=== PATIENT | female | born 1950 | race Caucasian/White ===

== ENCOUNTER 2019-06-13 14:47 | Outpatient (REF) | payer MEDICARE, MEDICAID, SELFPAY ==
[2019-06-13 15:48] LABS: TSH (W/Ref FT4) 0.17 uIU/mL (0.36-3.74)
[2019-06-13 16:11] LABS: FREE T4 1.41 ng/dL (0.76-1.46)
== END 2019-06-13 15:07 ==
LOC: LBN 14:47
PROVIDERS: Visit Provider Family Medicine
DX: J44.9 Chronic obstructive pulmonary disease, unspecified (principal); R63.5 Abnormal weight gain
CPT/HCPCS: 84439; 84443

== ENCOUNTER 2019-06-21 07:11 | Outpatient (CLI) | payer MEDICARE, MEDICAID, SELFPAY ==
--- NOTE | 2019-06-21 11:01 | DI.RAD_ITS ---
SYMPTOMS/DIAGNOSIS: SEVERE BACK AND HIP PAIN BILATERAL HIPS AND PELVIS: There are mild degenerative changes of the hips bilaterally with joint space narrowing and periarticular spurring. The findings are most marked on the right side. No acute fracture or dislocation is seen. The sacroiliac joints and symphysis pubis and intact. The soft tissues are unremarkable. IMPRESSION: Mild degenerative changes of the hips bilaterally. LUMBAR SPINE: AP, lateral and bilateral oblique views. There are no priors for comparison. There are compression deformities of T 11 and T 12 with loss of approximately 30% of the height of each of the vertebral bodies. These are indeterminate in acuity. There is normal alignment of the lumbar spine. No spondylolysis or spondylolisthesis is appreciated. There is mild narrowing of the disc spaces at L 3 - 4 and L 4 - 5. There are endplate osteophytes from L 2 - 3 through L 4 - 5. Degenerative changes of the facets are seen particularly at L 4 - 5 and L 5 - S 1. No acute fracture or subluxation in the lumbar spine is noted. IMPRESSION: 1. Mild to moderate degenerative changes in the lumbar spine. 2. Compression deformities of T 11 and T 12 which are indeterminate in age. Follow up as clinically appropriate.
== END 2019-06-21 07:31 ==
PROVIDERS: Visit Provider Nurse Practitioner Gerontology
DX: M54.5 Low back pain (principal); M25.551 Pain in right hip; M25.552 Pain in left hip; M16.0 Bilateral primary osteoarthritis of hip; M51.36 Other intervertebral disc degeneration, lumbar region; M47.816 Spondylosis without myelopathy or radiculopathy, lumbar region
CPT/HCPCS: 73521; 72110; 84443

== ENCOUNTER 2019-07-25 18:09 | Outpatient (REF) | payer MEDICARE, MEDICAID, SELFPAY ==
[2019-07-25 21:41] LABS: TSH 0.28 uIU/mL (0.36-3.74)
== END 2019-07-25 18:29 ==
LOC: NCHCN 18:09
PROVIDERS: Visit Provider Nurse Practitioner Family
DX: E03.9 Hypothyroidism, unspecified (principal)
CPT/HCPCS: 84443

== ENCOUNTER 2021-04-28 10:43 | Outpatient (REF) | payer MEDICARE, MEDICAID, SELFPAY ==
[2021-04-28 12:32] LABS: C Diff PCR Negative (Negative)
== END 2021-04-28 10:44 | disposition home or self-care (01) ==
LOC: LBN 10:43
PROVIDERS: Visit Provider Family Medicine
DX: R19.7 Diarrhea, unspecified (principal); R19.5 Other fecal abnormalities
CPT/HCPCS: 87493

== ENCOUNTER 2021-05-15 12:54 | Outpatient (REF) | payer MEDICARE, MEDICAID, SELFPAY ==
[2021-05-15 14:18] LABS: Anion Gap 8.2 mmol/L (3-11); BUN 10 mg/dL (7-18); C-Reactive Protein 0.43 mg/dL (0.0-0.3); CO2 27.8 mmol/L (21.0-32.0); CREATININE 0.7 mg/dL (0.55-1.02); Calcium 8.9 mg/dL (8.5-10.1); Chloride 107 mmol/L (98-107); Glucose 89 mg/dL (74-106); Potassium 4.1 mmol/L (3.5-5.1); Sodium 143 mmol/L (136-145); TSH (W/Ref FT4) 0.19 uIU/mL (0.36-3.74)
[2021-05-15 14:35] LABS: FREE T4 1.47 ng/dL (0.76-1.46)
== END 2021-05-15 12:55 | disposition home or self-care (01) ==
LOC: LBN 12:54
PROVIDERS: Visit Provider Family Medicine
DX: R19.7 Diarrhea, unspecified (principal)
CPT/HCPCS: 80048; 84439; 84443; 86140

== ENCOUNTER 2021-06-24 17:44 | Outpatient (REF) | payer MEDICARE, MEDICAID, SELFPAY ==
[2021-06-24 19:18] LABS: Bilirubin Negative (Negative); Blood Small (Negative); Clarity Cloudy (Clear); Glucose Negative (Negative); Ketones Negative (Negative); Leukocyte Esterase Large (Negative); Nitrite Negative (Negative); Specific Gravity 1.025 (1.005-1.025); Urobilinogen 0.2 EU/dL (Up TO 0.2); pH 5.5 (5-8)
[2021-06-24 19:32] LABS: WBC >50 HPF (0-5)
[2021-06-24 19:33] LABS: Bacteria Moderate HPF (Negative); C & S Indicated? C&S Done As Ordered; Crystals Negative HPF (Negative); Epithelial Cells Few HPF (Negative); Mucus Negative (Negative); Other Cells Few Transitional (Negative)
== END 2021-06-24 17:45 | disposition home or self-care (01) ==
LOC: LBN 17:44
PROVIDERS: Visit Provider Family Medicine
DX: R35.0 Frequency of micturition (principal)
CPT/HCPCS: 87077; 81003; 81015; 87086; 87186

== ENCOUNTER 2021-07-01 13:43 | Outpatient (REF) | payer MEDICARE, MEDICAID, SELFPAY ==
[2021-07-01 20:02] LABS: FREE T4 0.88 ng/dL (0.76-1.46)
== END 2021-07-01 13:44 | disposition home or self-care (01) ==
LOC: LBN 13:43
PROVIDERS: Visit Provider Family Medicine
DX: E03.9 Hypothyroidism, unspecified (principal)
CPT/HCPCS: 84439; 84443

== ENCOUNTER 2021-10-18 21:16 | Outpatient (REF) | payer MEDICARE, MEDICAID, SELFPAY ==
[2021-10-18 22:02] LABS: Abs Immature Grans 0.02 10^3/uL (0.0-0.06); Absolute Basophil Count 0.03 10^3/uL (0.0-0.2); Absolute Eosinophil Count 0.04 10^3/uL (0.0-0.7); Absolute Lymphocyte Count 1.01 10^3/uL (1.2-3.4); Absolute Monocyte Count 0.35 10^3/uL (0.1-0.8); Absolute Neutrophil Count 5.23 10^3/uL (1.2-6.7); Basophils % 0.4; Eosinophils % 0.6; HCT 37.5 % (36.0-46.0); HGB 11.8 g/dL (11.2-15.7); Immature Grans % 0.3; Lymphocytes % 15.1; MCH 31.7 pg (27.0-33.0); MCHC 31.5 % (32.0-36.0); MCV 100.8 fL (80-95); MPV 9.8 fL (8.0-11.0); Monocytes % 5.2; Neutrophils % 78.4; Nucleated RBC 0 %; Platelet Count 247 10^3/uL (130-400); RBC 3.72 10^6/uL (3.93-5.22); RDW 13.2 % (11.7-14.6); RDW-SD 49.6 fL; WBC 6.68 10^3/uL (4.4-10.8)
[2021-10-18 22:09] LABS: BUN 10 mg/dL (7-18); CREATININE 0.7 mg/dL (0.55-1.02); Calcium 8.7 mg/dL (8.5-10.1); Chloride 103 mmol/L (98-107); Glucose 114 mg/dL (74-106); Potassium 3.5 mmol/L (3.5-5.1); Sodium 138 mmol/L (136-145)
== END 2021-10-18 21:17 | disposition home or self-care (01) ==
LOC: LBN 21:16
PROVIDERS: Visit Provider Nurse Practitioner Family
DX: R50.9 Fever, unspecified (principal)
CPT/HCPCS: 80048; 85025

== ENCOUNTER 2021-10-19 05:58 | Outpatient (REF) | payer MEDICARE, MEDICAID, SELFPAY ==
[2021-10-19 06:48] LABS: Bilirubin Negative (Negative); Blood Negative (Negative); Clarity Clear (Clear); Glucose Negative (Negative); Ketones 40 mg/dL (Negative); Leukocyte Esterase Negative (Negative); Nitrite Negative (Negative); Specific Gravity 1.025 (1.005-1.025); Urobilinogen 0.2 EU/dL (Up TO 0.2); pH 6.5 (5-8)
== END 2021-10-19 05:59 | disposition home or self-care (01) ==
LOC: LBN 05:58
PROVIDERS: Visit Provider Family Medicine
DX: R50.9 Fever, unspecified (principal)
CPT/HCPCS: 81003; 87086

== ENCOUNTER 2021-11-17 16:04 | Outpatient (REF) | payer MEDICARE, MEDICAID, SELFPAY ==
[2021-11-17 16:33] LABS: Bilirubin Negative (Negative); Blood Small (Negative); Clarity Sl Cloudy (Clear); Glucose Negative (Negative); Ketones Negative (Negative); Leukocyte Esterase Moderate (Negative); Nitrite Negative (Negative); Urobilinogen 0.2 EU/dL (Up TO 0.2); pH 5.5 (5-8)
[2021-11-17 16:40] LABS: Bacteria Few HPF (Negative); Crystals Negative HPF (Negative); Epithelial Cells Few HPF (Negative); WBC >50 HPF (0-5)
[2021-11-17 16:41] LABS: C & S Indicated? Yes; Casts Negative LPF (Negative); Mucus Trace (Negative)
== END 2021-11-17 16:05 | disposition home or self-care (01) ==
LOC: LBN 16:04
PROVIDERS: Visit Provider Nurse Practitioner Family
DX: R30.0 Dysuria (principal); R35.0 Frequency of micturition
CPT/HCPCS: 87077; 81003; 81015; 87086; 87186

== ENCOUNTER 2021-11-29 14:37 | Outpatient (REF) | payer MEDICARE, MEDICAID, SELFPAY ==
[2021-11-29 15:46] LABS: Abs Immature Grans 0.02 10^3/uL (0.0-0.06); Absolute Basophil Count 0.04 10^3/uL (0.0-0.2); Absolute Lymphocyte Count 1.62 10^3/uL (1.2-3.4); Absolute Monocyte Count 0.32 10^3/uL (0.1-0.8); Absolute Neutrophil Count 4.74 10^3/uL (1.2-6.7); Basophils % 0.6; Eosinophils % 1.5; HCT 39.3 % (36.0-46.0); HGB 12.4 g/dL (11.2-15.7); Immature Grans % 0.3; Lymphocytes % 23.7; MCH 32.3 pg (27.0-33.0); MCHC 31.6 % (32.0-36.0); MCV 102.3 fL (80-95); MPV 9.9 fL (8.0-11.0); Monocytes % 4.7; Neutrophils % 69.2; Nucleated RBC 0 %; Platelet Count 308 10^3/uL (130-400); RBC 3.84 10^6/uL (3.93-5.22); RDW 13.1 % (11.7-14.6); RDW-SD 49.8 fL; WBC 6.84 10^3/uL (4.4-10.8)
[2021-11-29 15:51] LABS: Anion Gap 10.9 mmol/L (3-11); BUN 16 mg/dL (7-18); CO2 25.1 mmol/L (21.0-32.0); CREATININE 0.9 mg/dL (0.55-1.02); Calcium 8.9 mg/dL (8.5-10.1); Chloride 106 mmol/L (98-107); Glucose 139 mg/dL (74-106); Sodium 142 mmol/L (136-145); Uric Acid 3.7 mg/dL (2.6-6.0)
== END 2021-11-29 14:38 | disposition home or self-care (01) ==
LOC: LBN 14:37
PROVIDERS: Visit Provider Family Medicine
DX: M10.9 Gout, unspecified (principal); R68.89 Other general symptoms and signs; Z13.228 Encounter for screening for other metabolic disorders
CPT/HCPCS: 80048; 84550; 85025

== ENCOUNTER 2021-12-24 14:58 | Outpatient (CLI) | payer MEDICARE, MEDICAID, SELFPAY ==
--- NOTE | 2021-12-24 12:35 | DI.CT_ITS ---
Exam(s) CT HEAD WO EXAM: CT HEAD WO CLINICAL HISTORY: FELL, ON ELIQUIS, HIT HEAD, ? BLEED TECHNIQUE: COMPARISON: No exams were available for comparison FINDINGS: Noncontrast cranial CT was performed. Note is made of mild generalized cerebral atrophy. There is n o evidence of acute intracranial hemorrhage. The orbital and temporal bone structures appear intact. Visualized mastoid air cells and paranasal sinuses are clear. There is question of decreased attenuation of portions of the medulla, there is significant artifact in this area from surrounding bony structures but possibility of a hypoattenuating lesion cannot be e xcluded. Correlation with brain MRI recommended to rule out a mass lesion or infarct. IMPRESSION: No acute intracranial hemorrhage. Question medullary abnormality versus artifact, mass not excluded, correlation with brain MRI recomme nded. RADIATION DOSE DELIVERED: 759.27mGy.cm Total DLP !Error CTDIvol RADIATION OPTIMIZATION: All CT scans at this facility use at least one of these dose optimization te chniques: automated exposure control; mA and/or kV adjustment per patient size (includes targeted exa ms where dose is matched to clinical indication); or iterative reconstruction.
== END 2021-12-24 15:18 ==
PROVIDERS: Visit Provider Family Medicine
DX: Z79.899 Other long term (current) drug therapy (principal); S09.8XXA Other specified injuries of head, initial encounter; W19.XXXA Unspecified fall, initial encounter; R93.0 Abnormal findings on diagnostic imaging of skull and head, not elsewhere classified
CPT/HCPCS: 70450

== ENCOUNTER 2022-03-03 22:37 | Outpatient (REF) | payer MEDICARE, MEDICAID, SELFPAY ==
[2022-03-03 15:33] LABS: CREATININE 0.9 mg/dL (0.55-1.02)
== END 2022-03-03 22:38 | disposition home or self-care (01) ==
LOC: LBN 22:37
PROVIDERS: Visit Provider Family Medicine
DX: R94.4 Abnormal results of kidney function studies (principal)
CPT/HCPCS: 82565

== ENCOUNTER 2022-03-05 00:13 | Outpatient (CLI) | payer MEDICARE, MEDICAID, SELFPAY ==
--- NOTE | 2022-03-05 | DI.MRI_ITS ---
Exam(s) MR BRAIN WO/W EXAM: MR BRAIN WO/W CLINICAL HISTORY: ? MEDULLA MASS SEEN ON CT TECHNIQUE: Multiplanar multisequence MRI of the brain was performed. Additional post contrast imagi ng was also obtained including T1 weighted axial and coronal images as well as T1 MP rage images, mul tiplanar. COMPARISON: No exams were available for comparison FINDINGS: There is mild generalized cerebral atrophy. There are scattered areas of abnormal signal in periventricular white matter consistent with microvas cular ischemic changes sparing the corpus callosum. The orbital and temporal bone structures appear intact as does the pituitary. Diffusion weighted imaging shows no evidence of infarction. Susceptibility weighted imaging shows no evidence of intracranial hemorrhage. There is normal flow void in the sam[place] of [place] vasculature. There is no evidence of an intracranial mass lesion or enhancing lesion. Specifically, there is no e vidence of a lesion of the medulla. IMPRESSION: Normal brain MRI including post contrast imaging. DATA REPOSITORY:
[2022-03-05] MEDS: Normal Saline Flush 10 ML SYR IVP (12:47)
[2022-03-05] MEDS: Gadoterate meglumine 20 ML VIAL 15 ML IVP (12:48)
== END 2022-03-05 00:33 ==
PROVIDERS: Visit Provider Nurse Practitioner Family
DX: G31.89 Other specified degenerative diseases of nervous system (principal); I67.82 Cerebral ischemia; R94.02 Abnormal brain scan
CPT/HCPCS: 70553

== ENCOUNTER → 2022-04-22 00:53 | Outpatient (CLI) | payer MEDICARE, MEDICAID, SELFPAY ==
--- NOTE | 2022-04-22 14:15 | DI.RAD_ITS ---
Exam(s) XR KNEE RT 3V AP,LAT,SHANTI EXAM: XR KNEE RT 3V AP,LAT,SHANTI CLINICAL HISTORY: DJD, RT KNEE TECHNIQUE: COMPARISON: No exams were available for comparison FINDINGS: Four views were obtained. There is moderate narrowing of the cartilaginous joint space of the latera l tibiofemoral cartilaginous joint space. There is probable narrowing of the patellofemoral cartilag inous joint space is well. There is significant deformity of the articular surfaces of all 3 joints of the knee with very prominent marginal osteophyte formation also noted. IMPRESSION: Tricompartment degenerative changes as described above. RADIATION DOSE DELIVERED: Total DLP
== END ==
PROVIDERS: Visit Provider Family Medicine
DX: M25.561 Pain in right knee (principal); M17.11 Unilateral primary osteoarthritis, right knee
CPT/HCPCS: 73562

== ENCOUNTER 2022-06-26 01:58 | Outpatient (REF) | payer MEDICARE, MEDICAID, SELFPAY ==
[2022-06-26 02:31] LABS: Bilirubin Negative (Negative); Blood Negative (Negative); Clarity Clear (Clear); Glucose Negative (Negative); Ketones Negative (Negative); Leukocyte Esterase Negative (Negative); Nitrite Negative (Negative); Urobilinogen 0.2 EU/dL (Up TO 0.2)
== END 2022-06-26 01:59 | disposition home or self-care (01) ==
LOC: LBN 01:58
PROVIDERS: Visit Provider Nurse Practitioner Family
DX: M62.81 Muscle weakness (generalized) (principal); Z87.448 Personal history of other diseases of urinary system
CPT/HCPCS: 81003; 87086

== ENCOUNTER 2022-10-05 13:51 | Outpatient (REF) | payer MEDICARE, MEDICAID, SELFPAY ==
[2022-10-05 14:13] LABS: Abs Immature Grans 0.03 10^3/uL (0.0-0.06); Absolute Basophil Count 0.07 10^3/uL (0.0-0.2); Absolute Eosinophil Count 0.11 10^3/uL (0.0-0.7); Absolute Lymphocyte Count 1.22 10^3/uL (1.2-3.4); Absolute Monocyte Count 0.55 10^3/uL (0.1-0.8); Absolute Neutrophil Count 8.03 10^3/uL (1.2-6.7); Basophils % 0.7; Eosinophils % 1.1; HGB 10.2 g/dL (11.2-15.7); Immature Grans % 0.3; Lymphocytes % 12.2; MCH 27.8 pg (27.0-33.0); MCV 93 fL (80-95); MPV 9.7 fL (8.0-11.0); Monocytes % 5.5; Neutrophils % 80.2; Platelet Count 532 10^3/uL (130-400); RBC 3.67 10^6/uL (3.93-5.22); RDW-SD 50.9 fL; WBC 10.01 10^3/uL (4.4-10.8)
[2022-10-05 14:25] LABS: ALT 89 U/L (14-59); AST 60 U/L (15-37); Albumin 3.2 g/dL (3.4-5.0); Alkaline Phosphatase 488 U/L (46-116); Anion Gap 8.1 mmol/L (3-11); BUN 10 mg/dL (7-18); C-Reactive Protein 3.07 mg/dL (0.0-0.3); CO2 25.9 mmol/L (21.0-32.0); CREATININE 0.8 mg/dL (0.55-1.02); Calcium 8.6 mg/dL (8.5-10.1); Chloride 103 mmol/L (98-107); Estimated GFR 77.75 (mL/min/1.73m2); Glucose 121 mg/dL (74-106); Potassium 4.2 mmol/L (3.5-5.1); Sodium 137 mmol/L (136-145); Total Protein 7.7 g/dL (6.4-8.2)
== END 2022-10-05 13:52 | disposition home or self-care (01) ==
LOC: LBN 13:51
PROVIDERS: Visit Provider Family Medicine
DX: J44.9 Chronic obstructive pulmonary disease, unspecified (principal); E03.9 Hypothyroidism, unspecified; R94.4 Abnormal results of kidney function studies; R91.8 Other nonspecific abnormal finding of lung field; R79.89 Other specified abnormal findings of blood chemistry
CPT/HCPCS: 80053; 85025; 86140

== ENCOUNTER → 2022-10-06 12:28 | Outpatient (CLI) | payer MEDICARE, MEDICAID, SELFPAY ==
--- NOTE | 2022-10-06 | DI.RAD_ITS ---
Exam(s) XR CHEST 2V PA LATERAL EXAM: XR CHEST 2V PA LATERAL CLINICAL HISTORY: CONGESTION, RESPIRATORY VIRUS NOT IMPROVING TECHNIQUE: 2D digital imaging was performed of the chest. Two images were obtained. PA and lateral views were obtained. COMPARISON: No exams were available for comparison FINDINGS: MEDIASTINUM: Normal. HEART: Normal. PULMONARY VASCULATURE: Normal. LUNGS: There is a left lower lobe infiltrate. PLEURAL SPACE: No pleural effusion or pneumothorax. BONE:Within normal limits for the patient's age. There are chronic thoracic and upper lumbar babatunde carissa fracture deformities. OTHER FINDINGS:There is elevation of the left hemidiaphragm. IMPRESSION: Left basilar infiltrate suspicious for pneumonia. DATA REPOSITORY: RADIATION DOSE DELIVERED:
== END ==
PROVIDERS: Visit Provider Family Medicine
DX: R91.8 Other nonspecific abnormal finding of lung field (principal)
CPT/HCPCS: 71046

== ENCOUNTER 2022-12-01 16:07 | Outpatient (REF) | payer MEDICARE, MEDICAID, SELFPAY | END 2022-12-01 16:08 | disposition home or self-care (01) | LOC: LBN 16:07 | PROVIDERS: Visit Provider Family Medicine | DX: R82.998 Other abnormal findings in urine (principal); Z87.448 Personal history of other diseases of urinary system | CPT/HCPCS: 87077; 87086; 87186 ==

== ENCOUNTER 2022-12-04 15:15 | Outpatient (REF) | payer MEDICARE, MEDICAID, SELFPAY ==
[2022-12-04 16:27] LABS: Bilirubin Negative (Negative); Blood Negative (Negative); Clarity Sl Cloudy (Clear); Glucose Negative (Negative); Ketones Negative (Negative); Leukocyte Esterase Trace (Negative); Nitrite Negative (Negative); Urobilinogen 0.2 EU/dL (Up TO 0.2)
[2022-12-04 16:33] LABS: Bacteria Many HPF (Negative); C & S Indicated? C&S Done As Ordered; Casts Negative LPF (Negative); Crystals Negative HPF (Negative); Epithelial Cells Few HPF (Negative); Mucus Negative (Negative); RBC 0-2 HPF (0-2)
== END 2022-12-04 15:16 | disposition home or self-care (01) ==
LOC: LBN 15:15
PROVIDERS: Visit Provider Family Medicine
DX: I26.99 Other pulmonary embolism without acute cor pulmonale (principal)
CPT/HCPCS: 87077; 81003; 81015; 87086; 87186

== ENCOUNTER 2023-01-18 21:31 | Outpatient (REF) | payer MEDICARE, MEDICAID, SELFPAY ==
[2023-01-18 21:50] LABS: Abs Immature Grans 0.08 10^3/uL (0.0-0.06); Absolute Basophil Count 0.06 10^3/uL (0.0-0.2); Absolute Eosinophil Count 0.14 10^3/uL (0.0-0.7); Absolute Lymphocyte Count 1.65 10^3/uL (1.2-3.4); Basophils % 0.5; Eosinophils % 1.2; HCT 31.8 % (36.0-46.0); HGB 9.6 g/dL (11.2-15.7); Immature Grans % 0.7; Lymphocytes % 13.8; MCH 27.1 pg (27.0-33.0); MCHC 30.2 % (32.0-36.0); MCV 90 fL (80-95); MPV 10.4 fL (8.0-11.0); Neutrophils % 76.8; Platelet Count 539 10^3/uL (130-400); RBC 3.54 10^6/uL (3.93-5.22); RDW-SD 63.3 fL; WBC 11.94 10^3/uL (4.4-10.8)
[2023-01-18 21:51] LABS: Absolute Monocyte Count 0.84 10^3/uL (0.1-0.8); Absolute Neutrophil Count 9.17 10^3/uL (1.2-6.7)
[2023-01-18 22:13] LABS: ALT 142 U/L (14-59); AST 145 U/L (15-37); Albumin 2.9 g/dL (3.4-5.0); Alkaline Phosphatase 857 U/L (46-116); Anion Gap 9.9 mmol/L (3-11); BUN 13 mg/dL (7-18); Bilirubin, Total 3.9 mg/dL (0.2-1.0); CO2 24.1 mmol/L (21.0-32.0); CREATININE 0.9 mg/dL (0.55-1.02); Calcium 8.7 mg/dL (8.5-10.1); Chloride 107 mmol/L (98-107); Estimated GFR 67.08 (mL/min/1.73m2); Glucose 104 mg/dL (74-106); Potassium 4.1 mmol/L (3.5-5.1); Sodium 141 mmol/L (136-145); Total Protein 7.5 g/dL (6.4-8.2)
[2023-01-20 11:29] LABS: Hepatitis C Ab w Rflx HCV PCR Negative (Negative)
== END 2023-01-18 21:32 | disposition home or self-care (01) ==
LOC: LBN 21:31
PROVIDERS: Visit Provider Family Medicine
DX: I26.99 Other pulmonary embolism without acute cor pulmonale (principal); Z11.59 Encounter for screening for other viral diseases; R10.9 Unspecified abdominal pain; R17 Unspecified jaundice; R74.01 Elevation of levels of liver transaminase levels
CPT/HCPCS: 80053; 86803; 85025

== ENCOUNTER 2023-02-05 13:41 | Outpatient (REF) | payer MEDICARE, MEDICAID, SELFPAY ==
[2023-02-05 10:36] LABS: Abs Immature Grans 0.01 10^3/uL (0.0-0.06); Absolute Basophil Count 0.05 10^3/uL (0.0-0.2); Absolute Eosinophil Count 0.18 10^3/uL (0.0-0.7); Absolute Lymphocyte Count 1.86 10^3/uL (1.2-3.4); Absolute Monocyte Count 0.35 10^3/uL (0.1-0.8); Absolute Neutrophil Count 3.19 10^3/uL (1.2-6.7); Basophils % 0.9; Eosinophils % 3.2; HCT 31.9 % (36.0-46.0); HGB 9.7 g/dL (11.2-15.7); Immature Grans % 0.2; MCH 27.8 pg (27.0-33.0); MCHC 30.4 % (32.0-36.0); MCV 91 fL (80-95); Monocytes % 6.2; Neutrophils % 56.5; Platelet Count 263 10^3/uL (130-400); RBC 3.49 10^6/uL (3.93-5.22); RDW 18.1 % (11.7-14.6); RDW-SD 60.5 fL; WBC 5.64 10^3/uL (4.4-10.8)
[2023-02-05 11:03] LABS: ALT 62 U/L (14-59); AST 67 U/L (15-37); Alkaline Phosphatase 463 U/L (46-116); Anion Gap 7.5 mmol/L (3-11); BUN 18 mg/dL (7-18); Bilirubin, Total 0.7 mg/dL (0.2-1.0); CO2 28.5 mmol/L (21.0-32.0); CREATININE 0.8 mg/dL (0.55-1.02); Chloride 108 mmol/L (98-107); Estimated GFR 77.27 (mL/min/1.73m2); Glucose 130 mg/dL (74-106); Potassium 3.9 mmol/L (3.5-5.1); Sodium 144 mmol/L (136-145); TSH 22.01 uIU/mL (0.36-3.74); Total Protein 7.5 g/dL (6.4-8.2)
[2023-02-05 11:19] LABS: T4 6.5 ug/dL (4.7-13.3)
[2023-02-05 18:56] LABS: T3, Total 101 ng/dL (97-169)
== END 2023-02-05 13:42 | disposition home or self-care (01) ==
LOC: LBN 13:41
PROVIDERS: Visit Provider Physician Assistant
DX: E03.9 Hypothyroidism, unspecified (principal); J44.9 Chronic obstructive pulmonary disease, unspecified
CPT/HCPCS: 80053; 84436; 84439; 84443; 84480; 85025

== ENCOUNTER 2023-02-18 01:04 | Outpatient (CLI) | payer MEDICARE, MEDICAID, SELFPAY ==
--- NOTE | 2023-02-18 | DI.CT_ITS ---
Exam(s) CT ABDOMEN PELVIS W EXAM: CT ABDOMEN PELVIS W CLINICAL HISTORY: HYPERBILIRUBINEMIA TECHNIQUE: Imaging Protocol: Axial computed tomography images with coronal and sagittal reformatted images were created and reviewed CONTRAST MATERIAL: Intravenous: Omnipaque 350 Contrast volume:100 mL Oral: yes / no COMPARISON: CR XR lumbar spine complete from 06/21/2019 FINDINGS: ABDOMEN: Lung Bases: There is dependent atelectasis. Liver: Normal density. No measurable mass. Portal, Superior Mesenteric, and Splenic Veins: Unremarkable. Gallbladder and Biliary Tract: The common duct measures 1.3 cm. The gallbladder appears contracted. There is mild intrahepatic bile duct dilatation. Pancreas: Normal density, no abnormal calcifications or inflammatory process. Spleen: Normal. Adrenals: No masses seen. Kidneys: Normal size, contour and axis. There is a 1 mm nonobstructing stone in the superior pole of the right kidney. There are few tiny hypodense lesions in the cortex of the left kidney. They are t oo small for further characterization but likely reflect small cysts. No follow-up is recommended. No masses seen. Abdominal Aorta: Abdominal portion non-dilated. Mild atherosclerosis. Bowel: There is diverticulosis seen in the colon, but no evidence of acute diverticulitis. There is no evidence of bowel obstruction or bowel wall thickening. There is no evidence of appendicitis. Peritoneal Cavity: No ascites, collection or mesenteric inflammatory response. No free air. Lymph Nodes: Within normal limits. Bones: Within normal limits for the patient's age. There are stable compression deformities involvin g T11 and T12. Soft Tissues: There is a small fat containing umbilical hernia. PELVIS: Bladder: Symmetric distention, no gross wall thickening. Reproductive Organs: Unremarkable as visualized. Lymph Nodes: Within normal limits. Bones: Within normal limits for the patient's age. IMPRESSION: 1. Extrahepatic and mild intrahepatic biliary ductal dilatation. There is a contracted gallbladder. Further evaluation with an MRCP is recommended in this patient. An obstructing mass or non calcifie d stone should be considered. 2. Right nephrolithiasis. No hydronephrosis. 3. Colonic diverticulosis, but no evidence of acute diverticulitis. 4. Old T11 and T12 compression fracture deformities. RADIATION DOSE DELIVERED: 1,263.94mGy.cm Total DLP DATA REPOSITORY: All CT scans at this facility are submitted to the National Radiology Data Registry (NRDR) Dose Index Registry (DIR) with the [employer] (A[employer]). RADIATION OPTIMIZATION: All CT scans at this facility use at least one of these dose optimization te chniques: automated exposure control; mA and/or kV adjustment per patient size (includes targeted exa ms where dose is matched to clinical indication); or iterative reconstruction.
[2023-02-18] MEDS: Barium Sulfate 2% W/V-Berry Smoothie 450 ML BTL PO (11:57)
[2023-02-18] MEDS: Omnipaque 350 MG/ML 500 ML BTL-Imaging package 100 ML IJ (14:28)
[2023-02-18] MEDS: Normal Saline - Diluent 50 ML VIAL IJ (14:29)
== END 2023-02-18 01:24 ==
LOC: DI 01:04
PROVIDERS: Visit Provider Physician Assistant
DX: K21.9 Gastro-esophageal reflux disease without esophagitis (principal); E03.9 Hypothyroidism, unspecified; G40.89 Other seizures; K58.9 Irritable bowel syndrome, unspecified
CPT/HCPCS: 74177

== ENCOUNTER 2023-04-06 19:17 | Outpatient (REF) | payer MEDICARE, MEDICAID, SELFPAY ==
[2023-04-06 20:28] LABS: Abs Immature Grans 0.01 10^3/uL (0.0-0.06); Absolute Basophil Count 0.07 10^3/uL (0.0-0.2); Absolute Eosinophil Count 0.15 10^3/uL (0.0-0.7); Absolute Lymphocyte Count 1.93 10^3/uL (1.2-3.4); Absolute Monocyte Count 0.42 10^3/uL (0.1-0.8); Eosinophils % 2.2; HCT 34.2 % (36.0-46.0); HGB 10.4 g/dL (11.2-15.7); Immature Grans % 0.1; Lymphocytes % 28.1; MCH 27.9 pg (27.0-33.0); MCHC 30.4 % (32.0-36.0); MCV 92 fL (80-95); MPV 9.5 fL (8.0-11.0); Monocytes % 6.1; Neutrophils % 62.5; Platelet Count 360 10^3/uL (130-400); RBC 3.73 10^6/uL (3.93-5.22); RDW 15.2 % (11.7-14.6); RDW-SD 51.8 fL; WBC 6.88 10^3/uL (4.4-10.8)
[2023-04-06 20:44] LABS: ALT 26 U/L (14-59); AST 27 U/L (15-37); Albumin 3.4 g/dL (3.4-5.0); Alkaline Phosphatase 170 U/L (46-116); Anion Gap 4.3 mmol/L (3-11); BUN 18 mg/dL (7-18); Bilirubin, Total 0.2 mg/dL (0.2-1.0); CO2 30.7 mmol/L (21.0-32.0); CREATININE 0.8 mg/dL (0.55-1.02); Calcium 8.6 mg/dL (8.5-10.1); Chloride 103 mmol/L (98-107); Estimated GFR 77.27 (mL/min/1.73m2); Glucose 96 mg/dL (74-106); Potassium 4.4 mmol/L (3.5-5.1); Sodium 138 mmol/L (136-145); TSH 9.55 uIU/mL (0.36-3.74); Total Protein 8.1 g/dL (6.4-8.2)
[2023-04-06 20:54] LABS: COVID-19 PCR Negative (Negative); Influenza A PCR Negative (Negative); Influenza B PCR Negative (Negative); RSV PCR Negative (Negative)
[2023-04-06 20:56] LABS: Source Nasopharynx
[2023-04-06 23:01] LABS: Bilirubin Negative (Negative); Blood Small (Negative); Clarity Cloudy (Clear); Glucose Negative (Negative); Ketones Negative (Negative); Leukocyte Esterase Small (Negative); Nitrite Negative (Negative); Urobilinogen 0.2 mg/dL (Up to 0.2)
[2023-04-06 23:13] LABS: Bacteria Few HPF (Negative); C & S Indicated? No/Sq. Contamination; Crystals Negative HPF (Negative); Epithelial Cells Moderate HPF (Negative); Mucus Negative (Negative)
== END 2023-04-06 19:18 | disposition home or self-care (01) ==
LOC: LBN 19:17
PROVIDERS: PCP Family Medicine; Visit Provider Physician Assistant
DX: R05.8 Other specified cough (principal); R53.1 Weakness; E03.9 Hypothyroidism, unspecified; Z20.822 Contact with and (suspected) exposure to COVID-19; R82.998 Other abnormal findings in urine; R74.9 Abnormal serum enzyme level, unspecified
CPT/HCPCS: 80053; 87637; 81003; 81015; 84443; 85025

== ENCOUNTER 2023-04-23 18:27 | Outpatient (REF) | payer MEDICARE, MEDICAID, SELFPAY ==
[2023-04-23 19:19] LABS: TSH (W/Ref FT4) 7.98 uIU/mL (0.36-3.74)
[2023-04-23 19:43] LABS: FREE T4 0.85 ng/dL (0.76-1.46)
== END 2023-04-23 18:28 | disposition home or self-care (01) ==
LOC: LBN 18:27
PROVIDERS: Visit Provider Family Medicine
DX: E03.9 Hypothyroidism, unspecified (principal)
CPT/HCPCS: 84439; 84443

== ENCOUNTER 2023-06-10 19:14 | Outpatient (REF) | payer MEDICARE, MEDICAID, SELFPAY ==
[2023-06-10 15:13] LABS: Abs Immature Grans 0.04 10^3/uL (0.0-0.06); Absolute Basophil Count 0.04 10^3/uL (0.0-0.2); Absolute Eosinophil Count 0.11 10^3/uL (0.0-0.7); Absolute Monocyte Count 0.74 10^3/uL (0.1-0.8); Absolute Neutrophil Count 7.87 10^3/uL (1.2-6.7); Basophils % 0.4; Eosinophils % 1.1; HCT 33.4 % (36.0-46.0); HGB 10.1 g/dL (11.2-15.7); Immature Grans % 0.4; Lymphocytes % 14.6; MCH 27.9 pg (27.0-33.0); MCHC 30.2 % (32.0-36.0); MCV 92 fL (80-95); MPV 9.9 fL (8.0-11.0); Monocytes % 7.2; Neutrophils % 76.3; Platelet Count 275 10^3/uL (130-400); RBC 3.62 10^6/uL (3.93-5.22); RDW 15.1 % (11.7-14.6); RDW-SD 51.3 fL
[2023-06-10 15:18] LABS: Bilirubin Negative (Negative); Blood Trace-intact (Negative); Clarity Clear (Clear); Glucose Negative (Negative); Ketones Negative (Negative); Leukocyte Esterase Moderate (Negative); Nitrite Negative (Negative); Specific Gravity 1.015 (1.005-1.025); Urobilinogen 0.2 mg/dL (Up to 0.2); pH 8.5 (5-8)
[2023-06-10 15:27] LABS: ALT 18 U/L (14-59); AST 26 U/L (15-37); Albumin 3.4 g/dL (3.4-5.0); Alkaline Phosphatase 96 U/L (46-116); BUN 13 mg/dL (7-18); Bilirubin, Total 0.4 mg/dL (0.2-1.0); CREATININE 0.8 mg/dL (0.55-1.02); Calcium 8.7 mg/dL (8.5-10.1); Chloride 106 mmol/L (98-107); Estimated GFR 77.27 (mL/min/1.73m2); Glucose 106 mg/dL (74-106); Potassium 3.9 mmol/L (3.5-5.1); Sodium 142 mmol/L (136-145); Total Protein 7.5 g/dL (6.4-8.2)
[2023-06-10 15:33] LABS: Bacteria Many HPF (Negative); C & S Indicated? Yes; Casts Negative LPF (Negative); Crystals Negative HPF (Negative); Epithelial Cells Few HPF (Negative); Mucus Negative (Negative); RBC 0-2 HPF (0-2)
[2023-06-10 22:05] LABS: TSH 6.35 uIU/mL (0.36-3.74)
== END 2023-06-10 19:15 | disposition home or self-care (01) ==
LOC: LBN 19:14
PROVIDERS: Visit Provider Physician Assistant
DX: R50.9 Fever, unspecified (principal); L03.115 Cellulitis of right lower limb; D64.9 Anemia, unspecified; R94.6 Abnormal results of thyroid function studies; R82.998 Other abnormal findings in urine
CPT/HCPCS: 80053; 87077; 81003; 81015; 84443; 85025; 87070; 87086; 87186; 87205

== ENCOUNTER 2023-08-13 09:45 | Inpatient (IN) | payer MEDICARE, MEDICAID, SELFPAY ==
[2023-08-13] VITALS (18 sets, daily range): BP systolic 117–144; BP diastolic 35–105; PULSE 75–98; RESP 16–20; TEMP 36.3–37.7; O2SAT 92–95
--- NOTE | 2023-08-13 10:07 | ED.GENADUL_ITS ---
Discharge Plan Disposition Patient Disposition: Admit to [facility] Condition: Improving Discharge Details Clinical Impression: Cellulitis Admit Date/Time: 08/13/23 14:08 Admit Provider: Myra Kemp Attending Provider: Myra Kemp Primary Care Provider: None,None ED Provider: Junito Arguelles Discharge Data Discharge Physician: Junito Arguelles Medical Decision Making MDM: Summary: Patient presents emergency department with 1 week of progressive swelling of the right lower extremity where she had a very small ulceration that was healing from a dog bite that she had about 2 months ago. The redness progressed and now it is although the right foot right leg up to the knee but did not compromise the knee joint. Labs were done she has a white count of 20,000 with a left shift other labs are unremarkable but with this mild elevation and the progression of the cellulitis the patient will need to be admitted to the hospital for IV antibiotics. Blood cultures were obtained she did not meet sepsis criteria blood cultures were done and she will be admitted for IV antibiotics for. Of IV clindamycin in the emergency department. Data Review Analysis All the data on this patient was reviewed by me including laboratory and imaging studies as well as bedside studies performed by me Independent review of Studies Imaging Lab: Labs showed no ocular 20,000 Risk Stratification: Patient with cellulitis and needs to be admitted to the hospital Differential Diagnosis: 1. Cellulitis 2.-sepsis 4. 5. Consultants: Shared disposition: patient understands that she needs to be admitted to the hospital Impression: Medical Records Medical records reviewed: Yes I reviewed the patient's medical records. HPI General Date/Time Provider Initiated Documentation: 08/13/23 10:06 . HPI Narrative: Patient presents emergency department complaining of fever and redness of the right lower extremity that started over a small ulceration that she is got to her walters that she states occurred from a dog bite about a month ago. Reports t hat the lesion has not healed and then she started stating that for the last week she started having swelling and redness of the lower leg and now it swollen up to the knee. Reports throbbing but no pain Related Data Home Medications Medication Instructions Recorded Confirmed aluminum-mag hydroxide-simethicone 10 ml PO Q6H PRN 08/13/23 08/13/23 200 mg-200 mg-20 mg/5 mL oral susp (Mintox) apixaban 5 mg tablet (Eliquis) 5 mg PO BID 08/13/23 08/13/23 benzonatate 100 mg capsule 100 mg PO Q6H PRN 08/13/23 08/13/23 bisacodyl 10 mg rectal suppository 10 mg ID DAILY PRN 08/13/23 08/13/23 (Gentle Laxative (bisacodyl)) calcium carbonate 550 mg chewable 1,100 mg PO DAILY PRN 08/13/23 08/13/23 tablet clonazepam 0.5 mg tablet 0.5 mg PO TID 08/13/23 08/13/23 clotrimazole 1 % topical cream 1 applic topical QAM AND QPM 08/13/23 08/13/23 (Antifungal (clotrimazole)) diclofenac sodium 1 % topical gel 4 g topical QID 08/13/23 08/13/23 diphenhydramine HCl 25 mg capsule 25 mg PO Q8H PRN 08/13/23 08/13/23 (Allergy Medication) fluticasone propionate 50 1 spray intranasal ONCE 08/13/23 08/13/23 mcg/actuation nasal spray,suspension (Flonase Allergy Relief) hydrocortisone 1 % topical cream 1 applic topical BID PRN 08/13/23 08/13/23 (Preparation H Hydrocortisone) ibuprofen 600 mg tablet (IBU) 600 mg PO TID-QID PRN 08/13/23 08/13/23 lactulose 10 gram/15 mL oral 15 ml PO DAILY PRN 08/13/23 08/13/23 solution (Enulose) levothyroxine 125 mcg capsule 125 mcg PO DAILY 08/13/23 08/13/23 lisinopril 40 mg tablet (Zestril) 40 mg PO DAILY 08/13/23 08/13/23 loperamide 2 mg tablet 4 mg PO Q8H 08/13/23 08/13/23 (Anti-Diarrheal (loperamide)) magnesium hydroxide 400 mg/5 mL 5 ml PO DAILY PRN 08/13/23 08/13/23 oral suspension magnesium sulfate (bulk) 100 % 1 applic topical QHS PRN 08/13/23 08/13/23 crystals (Epsom Salt) metoprolol succinate 50 mg capsule 50 mg PO DAILY 08/13/23 08/13/23 sprinkle, ext. release 24 hr ondansetron 4 mg disintegrating 4 mg PO QD-BID PRN 08/13/23 08/13/23 tablet pantoprazole 20 mg tablet,delayed 20 mg PO BID 08/13/23 08/13/23 release peg 400-propylene glycol 0.4 %-0.3 2 drp ophthalmic (eye) QID PRN 08/13/23 08/13/23 % eye drops (Lubricant Eye (PG-PEG 400)) potassium chloride 20 mEq 20 meq PO DAILY 08/13/23 08/13/23 tablet,extended release (K-Tab) ropinirole 0.25 mg tablet 0.25 mg PO QHS 08/13/23 08/13/23 sertraline 25 mg tablet 175 mg PO DAILY 08/13/23 08/13/23 sodium chloride 0.65 % nasal spray 2 spray intranasal BID PRN 08/13/23 08/13/23 aerosol (Deep Sea Nasal) topiramate 50 mg tablet (Topamax) 25 mg PO DAILY 08/13/23 08/13/23 topiramate 50 mg tablet (Topamax) 50 mg PO QHS 08/13/23 08/13/23 Allergies Allergy/AdvReac Type Severity Reaction Status Date / Time Penicillins Allergy Intermediate rash Unverified 08/13/23 09:49 transparent dressing Allergy Mild rash Unverified 08/13/23 09:49 procaine [From Novocain] AdvReac Mild light Unverified 08/13/23 09:49 headed ativan Allergy Intermediate Uncoded 08/13/23 15:23 General Stated Complaint: Cellulitis JAYNA: 3 Review of Systems Narrative: Review of Systems: Constitutional:sweats Eye: No recent visual problems ENT: No ear pain, nasal congestion, sore throat Respiratory: No shortness of breath, cough Cardiovascular: No Chest pain, palpitations, syncope Gastrointestinal: No nausea, vomiting, diarrhea Genitourinary: No hematuria Christian/Lymph: Negative for bruising tendency, swollen lymph glands Endocrine: Negative for excessive thirst, excessive hunger Musculoskeletal: No back pain, neck pain, joint pain, muscle pain, decreased range of motion Integumentary: No rash, pruritus, abrasions Neurologic: Alert & oriented X 4 Psychiatric: No anxiety, depression PFSH All Active Problems (Updated 08/13/23 @ 16:53 by Junito Arguelles MD) Cellulitis (Acute) Social History Smoking/Tobacco Use Status: Never Smoking risk assessment performed?: Yes Housing: retirement Do you feel safe at home: Yes Exam Narrative Exam Narrative: Exam; vitals signs as reported above normal Constitutional; In no acute distress, afebrile General: cooperative, healthy appearing, comfortable and no acute distress HEENT: Head: normal to inspection, no palpable skull fracture and normocephalic atraumatic Eyes: : appearance normal, both eyes and all related structures EOM intact bilaterally Pupils: PERRL : conjunctiva normal Direct ophthalmoscopy: normal light reflex, normal conjunctiva, normal visual acuity Ears: Normal TM, normal external canal Nose: normal no rhinorreha Neck no JVD, supple non tender Neck: normal visual inspection, full ROM and no lymphadenopathy Chest: normal inspection of the chest Respiratory : normal respiratory effort and able to speak in complete sentences no wheezing no rales Cardio Rate: regular rate, rhythm: regular rhythm normal heart sounds S1 and S2 no murmurs, gallops, or rubs GI : normal to inspection, normal bowel sounds, soft, non tender, non distended, no organomegaly Back/Spine/ no CVA tenderness Thoracic/Lumbar Spine: no tenderness or deformities Skin no rashes or lesions Neuro: patient alert oriented x 4 and no meningeal signs, Cranial Nerves: CN's II-XI intact bilaterally, Cognition: normal cognition, Speech: speech normal, Gait: normal gait, Depp tendon reflexes normal 2+ muscle strength 5/5 bilaterally Extremities, right lower extremity from the knee down to the tip of the foot swelling and induration and erythema with a 0.5 cm very superficial ulcer in the anterior pretibial area that is granulating and no drainage clean. Left and right dorsalis pedis and respiratory pulses are 2+ bilateral : Course Vital Signs Vital signs: Vital Signs Temperature 37.3 C 08/13/23 09:43 Pulse 98 H 08/13/23 09:43 Respiratory Rate 20 08/13/23 09:43 Blood Pressure 144/54 H 08/13/23 09:43 Pulse Oximetry 92 08/13/23 09:43 Temperature 37.3 C 08/13/23 09:43 Temperature Source Oral 08/13/23 09:43 Pulse 98 H 08/13/23 09:43 Respiratory Rate 20 08/13/23 09:43 Blood Pressure 144/54 H 08/13/23 09:43 Blood Pressure Position Supine 08/13/23 09:43 Pulse Oximetry 92 08/13/23 09:43 Oxygen Delivery Method Room Air 08/13/23 09:43 Oxygen Flow Rate 0 08/13/23 09:43 Pain Level 6 08/13/23 09:43
[2023-08-13] MEDS: Normal Saline 1,000 ML 1000 ML IV (10:28)
[2023-08-13 10:30] LABS: Abs Immature Grans 0.09 10^3/uL (0.0-0.06); Absolute Eosinophil Count 0.04 10^3/uL (0.0-0.7); Absolute Monocyte Count 0.74 10^3/uL (0.1-0.8); Basophils % 0.2; Eosinophils % 0.2; HCT 33.4 % (36.0-46.0); HGB 10.4 g/dL (11.2-15.7); Immature Grans % 0.4; Lymphocytes % 4.4; MCH 27.4 pg (27.0-33.0); MCHC 31.1 % (32.0-36.0); MCV 88 fL (80-95); MPV 9.4 fL (8.0-11.0); Monocytes % 3.6; Neutrophils % 91.2; Platelet Count 253 10^3/uL (130-400); RBC 3.79 10^6/uL (3.93-5.22); RDW 14.7 % (11.7-14.6); RDW-SD 47.5 fL; WBC 20.45 10^3/uL (4.4-10.8)
[2023-08-13 10:33] LABS: Absolute Basophil Count 0.04 10^3/uL (0.0-0.2); Absolute Neutrophil Count 18.65 10^3/uL (1.2-6.7)
[2023-08-13 10:45] LABS: ALT 26 U/L (14-59); AST 26 U/L (15-37); Albumin 2.7 g/dL (3.4-5.0); Alkaline Phosphatase 105 U/L (46-116); Anion Gap 6.7 mmol/L (3-11); BUN 25 mg/dL (7-18); Bilirubin, Total 0.3 mg/dL (0.2-1.0); CO2 25.3 mmol/L (21.0-32.0); Calcium 9.2 mg/dL (8.5-10.1); Chloride 99 mmol/L (98-107); Estimated GFR 59.12 (mL/min/1.73m2); Glucose 167 mg/dL (74-106); Magnesium 2.1 mg/dL (1.8-2.4); Potassium 3.6 mmol/L (3.5-5.1); Sodium 131 mmol/L (136-145); Total Protein 7.9 g/dL (6.4-8.2)
[2023-08-13] MEDS: CLINDAMYCIN 600 MG/50 ML BAG 100 MG IVPB (12:27)
[2023-08-13 14:03] LABS: Source Nasopharynx
--- NOTE | 2023-08-13 14:47 | W.PM.HP.N ---
Date of service: 08/13/23 Time of Service: 14:50 Assessment and Plan Assessment and plan (1) Cellulitis of right lower extremity: Status: Acute Assessment and plan: Having failed outpatient therapy with clindamycin, I think it would be ross to upgrade her antibiotics to vancomycin/cefepime. Will await blood cultures. Obtain a wound culture and a wound care consult. Trend procalcitonin. (2) COVID-19: Status: Acute Assessment and plan: The patient is symptomatic in the sense of myalgias and back pain, which is acute on chronic. However, she is not experiencing respiratory symptoms and is not requiring oxygen. I started her on a three day course of remdesivir. Will supplement vitamin C and check vitamin D level. Will write for IS and acapella. (3) Wound of right lower extremity: Status: Acute Assessment and plan: as above (4) Chronic back pain: Status: Chronic Assessment and plan: Continue outpatien therapy (5) Ambulatory dysfunction: Status: Chronic Assessment and plan: C/s PT Wheel chair dependent normally (6) H/O deep venous thrombosis: Status: Chronic Assessment and plan: prior to this admission. Continue outpatient apixaban (7) Discharge planning issues: Status: Acute Assessment and plan: Full code as discussed with the patient History of Present Illness History of Present Illness Chief Complaint: fevers, chills, right leg pain and swelling Narrative: Ms Patino is a 72 year old female with PMHx of R breast cancer s/p mastectomy/reconstruction, in remission, as well as h/o DVT/PE, IBS, chronic back pain, obesity with BM of 34 kg/m2, ambulatory dysfunction, who is a resident of [facility] due to ambulatory dysfunction (wheelchair-dependent), who presented to [facility] ED today with worsening redness, swelling, and pain of RLL for several days in addition to fevers and chills in the last 24 hrs. The patient states she was scratched by [facility] about 1.5- 2 months ago. I discussed her case with the [facility] nurse: the patient was on bactrim in 06/16 for cellulitis due to a dog scratch (not a bite), then on a 2 week course of clindamycin in June, which improved her symptoms. However, her leg then got worse. The patient is not providing a clear history as to when the leg got worse. 48 hours ago, the patient had reported to nursing having generalized body aches and feeling like she might have COVID-19. She was tested for Flu and COVID at the senior care, and both tests were negative at that time. She then was evaluated yesterday for the worsening appearance of her R leg. At that time, she received a loading dose of ceftriaxone (which she tolerated) and was started on clindamycin 300 mg PO q6hrs. Despite this, the patient's appearance of the cellulitis of RLE got progressively worse, bringing her to our ED. Here, she was found to have a leucocytosis of 20.45. She was afebrile. She was initiated on IV clindamycin. Abscess is not suspected based on the appearance of the leg, but she does have a wound. She did test positive for COVID-19 in our ER. She is on RA. Her CXR read is pending, but per my read there are no acute abnormalities. We notified [facility] of her positive test. Review of Systems All systems reviewed & are unremarkable except as noted in HPI and below PFSH All Active Problems (Updated 08/13/23 @ 18:36 by Myra Kemp MD) Discharge planning issues (Acute) H/O deep venous thrombosis (Chronic) Wound of right lower extremity (Acute) Cellulitis of right lower extremity (Acute) Sepsis (Acute) COVID-19 (Acute) GERD (gastroesophageal reflux disease) (Chronic) IBS (irritable bowel syndrome) (Chronic) Restless legs syndrome (RLS) (Acute) Chronic back pain (Chronic) Ambulatory dysfunction (Chronic) Obesity (BMI 30.0-34.9) (Acute) Cellulitis (Acute) Medical History Pulmonary embolism DVT (deep venous thrombosis) Breast cancer, right Surgical History S/P breast reconstruction, right S/P right mastectomy Family History Brother Diabetes Sister Diabetes Sister Hypertension Sister Hypertension Melanoma Other Adopted Social History Smoking/Tobacco Use Status: Never Smoking risk assessment performed?: Yes Alcohol Intake: current Alcohol Intake frequency: holidays/special occasions only Drug use: Never Adopted: Yes Housing: senior care Do you feel safe at home: Yes Additional Social history: Meds Allergies and Home Medications Allergies Allergy/AdvReac Type Severity Reaction Status Date / Time Penicillins Allergy Intermediate rash Unverified 08/13/23 09:49 transparent dressing Allergy Mild rash Unverified 08/13/23 09:49 procaine [From Novocain] AdvReac Mild light Unverified 08/13/23 09:49 headed ativan Allergy Intermediate Uncoded 08/13/23 15:23 Home Medications Medication Instructions Recorded Confirmed Type aluminum-mag hydroxide-simethicone 10 ml PO Q6H PRN 08/13/23 08/13/23 History 200 mg-200 mg-20 mg/5 mL oral susp (Mintox) apixaban 5 mg tablet (Eliquis) 5 mg PO BID 08/13/23 08/13/23 History benzonatate 100 mg capsule 100 mg PO Q6H PRN 08/13/23 08/13/23 History bisacodyl 10 mg rectal suppository 10 mg PA DAILY PRN 08/13/23 08/13/23 History (Gentle Laxative (bisacodyl)) calcium carbonate 550 mg chewable 1,100 mg PO DAILY PRN 08/13/23 08/13/23 History tablet clonazepam 0.5 mg tablet 0.5 mg PO TID 08/13/23 08/13/23 History clotrimazole 1 % topical cream 1 applic topical QAM AND QPM 08/13/23 08/13/23 History (Antifungal (clotrimazole)) diclofenac sodium 1 % topical gel 4 g topical QID 08/13/23 08/13/23 History diphenhydramine HCl 25 mg capsule 25 mg PO Q8H PRN 08/13/23 08/13/23 History (Allergy Medication) fluticasone propionate 50 1 spray intranasal ONCE 08/13/23 08/13/23 History mcg/actuation nasal spray,suspension (Flonase Allergy Relief) hydrocortisone 1 % topical cream 1 applic topical BID PRN 08/13/23 08/13/23 History (Preparation H Hydrocortisone) ibuprofen 600 mg tablet (IBU) 600 mg PO TID-QID PRN 08/13/23 08/13/23 History lactulose 10 gram/15 mL oral 15 ml PO DAILY PRN 08/13/23 08/13/23 History solution (Enulose) levothyroxine 125 mcg capsule 125 mcg PO DAILY 08/13/23 08/13/23 History lisinopril 40 mg tablet (Zestril) 40 mg PO DAILY 08/13/23 08/13/23 History loperamide 2 mg tablet 4 mg PO Q8H 08/13/23 08/13/23 History (Anti-Diarrheal (loperamide)) magnesium hydroxide 400 mg/5 mL 5 ml PO DAILY PRN 08/13/23 08/13/23 History oral suspension magnesium sulfate (bulk) 100 % 1 applic topical QHS PRN 08/13/23 08/13/23 History crystals (Epsom Salt) metoprolol succinate 50 mg capsule 50 mg PO DAILY 08/13/23 08/13/23 History sprinkle, ext. release 24 hr ondansetron 4 mg disintegrating 4 mg PO QD-BID PRN 08/13/23 08/13/23 History tablet pantoprazole 20 mg tablet,delayed 20 mg PO BID 08/13/23 08/13/23 History release peg 400-propylene glycol 0.4 %-0.3 2 drp ophthalmic (eye) QID PRN 08/13/23 08/13/23 History % eye drops (Lubricant Eye (PG-PEG 400)) potassium chloride 20 mEq 20 meq PO DAILY 08/13/23 08/13/23 History tablet,extended release (K-Tab) ropinirole 0.25 mg tablet 0.25 mg PO QHS 08/13/23 08/13/23 History sertraline 25 mg tablet 175 mg PO DAILY 08/13/23 08/13/23 History sodium chloride 0.65 % nasal spray 2 spray intranasal BID PRN 08/13/23 08/13/23 History aerosol (Deep Sea Nasal) topiramate 50 mg tablet (Topamax) 25 mg PO DAILY 08/13/23 08/13/23 History topiramate 50 mg tablet (Topamax) 50 mg PO QHS 08/13/23 08/13/23 History Exam Narrative Exam Narrative: General: Pleasant elderly female who is quite talkative, does not appear short of breath, uncomfortable - back hurt Neurological: A&Ox3, no obvious focal deficits Psychiatric: Anxious, very jovial, somewhat tangential historian Skin: RLE cellitis with erythema spreading up from the originally demarcated line and an erythematous streak in the medial thigh; tibial surface wound with serosanguenous drainage. RLE TTP. No palpable abscess. HEENT: Atraumatic, normocephalic, EOMI, MMM, clear oropharynx, no submandibular or cervical lymphadenopathy, no goiter or JVD Cardiovascular: RRR, no m/r/g Lungs: CTAB Gastrointestinal: soft, nontender, nondistended Genitourinary: deferred Extremities: +1 edema RLE, trace edema LLE, see skin exam above, 2+ pedal pulses B, no c/c. R foot is externally rotated. Results Imaging Imaging Studies: CXR; No acute pulmonary findings. Labs 08/13/23 10:10 08/13/23 10:10 Labs: Laboratory Results - last 24 hr 08/13/23 08/13/23 08/13/23 10:10 13:43 13:50 WBC 20.45 H RBC 3.79 L Hgb 10.4 L Hct 33.4 L MCV 88 MCH 27.4 MCHC 31.1 L RDW 14.7 H Plt Count 253 MPV 9.4 Immature Gran % 0.4 Neutrophils % 91.2 Lymphocytes % 4.4 Monocytes % 3.6 Eosinophils % 0.2 Basophils % 0.2 Nucleated RBC % 0.0 Absolute Neutrophils 18.65 H Absolute Lymphocytes 0.90 L Absolute Monocytes 0.74 Absolute Eosinophils 0.04 Absolute Basophils 0.04 Sodium 131 L Potassium 3.6 Chloride 99 Carbon Dioxide 25.3 Anion Gap 6.7 BUN 25 H Creatinine 1.0 Est GFR (CKD-EPI 2020) 59.12 Glucose 167 H Calcium 9.2 Magnesium 2.1 Total Bilirubin 0.3 AST 26 ALT 26 Alkaline Phosphatase 105 Total Protein 7.9 Albumin 2.7 L COVID-19 Source Cancelled Nasopharynx SARS-CoV-2 (PCR) Cancelled Influenza Type A (PCR) Cancelled Influenza Type B (PCR) Cancelled RSV (PCR) Cancelled Last Vital Signs Temp 37.3 C 08/13/23 09:43 Pulse 85 08/13/23 13:31 Resp 20 08/13/23 09:43 BP 131/50 L 08/13/23 13:31 Pulse Ox 92 08/13/23 09:43 Time Spent Time spent with Patient: 55-74 minutes Time was spent: preparing to see the patient(eg.review tests), obtaining and/or reviewing separately otained hiistory, ordering medications,tests, procedures, referring, communicating with other health primary care pediatrician, indepentently interpreting results, counseling the patient and care coordination
[2023-08-13 15:01] LABS: COVID-19 PCR POSITIVE (Negative)
[2023-08-13] MEDS: CEFEPIME 2 GM in Normal Saline 100 ML IVPB (15:17)
[2023-08-13] MEDS: VANCOMYCIN/WATER (PEG) 2 GM/400 ML BAG IV (16:51)
--- NOTE | 2023-08-13 17:02 | DI.RAD_ITS ---
Exam(s) XR PORTABLE CHEST AP EXAM: XR PORTABLE CHEST AP CLINICAL HISTORY: cough TECHNIQUE: 2D digital imaging was performed of the chest. One image was obtained. An AP view was ob tained. COMPARISON: CR XR CHEST 2V PA LATERAL from 10/06/2022 FINDINGS: MEDIASTINUM: Normal. HEART: Normal. PULMONARY VASCULATURE: Normal. LUNGS: Clear. PLEURAL SPACE: No pleural effusion or pneumothorax. BONE:Within normal limits for the patient's age. OTHER FINDINGS:Normal. IMPRESSION: No acute pulmonary findings. DATA REPOSITORY: RADIATION DOSE DELIVERED:
[2023-08-13 17:38] LABS: Lab Add On Test DONE
[2023-08-13 17:55] LABS: C-Reactive Protein > 25.00 mg/dL (0.0-0.3)
[2023-08-13] MEDS: Acetaminophen 325 MG TAB PO ×2 (18:23→22:01)
[2023-08-13] MEDS: REMDESIVIR 200 MG in Normal Saline 250 ML 250 MG IVPB (19:56)
[2023-08-13] MEDS: Topiramate 50 MG TAB PO (22:00)
[2023-08-13] MEDS: clonazePAM 0.5 MG TAB PO (22:01)
[2023-08-13] MEDS: rOPINIRole 0.5 MG TAB 0.25 MG PO (22:02)
[2023-08-13] MEDS: Pantoprazole 20 MG TABCR PO (22:03)
[2023-08-13] MEDS: Apixaban 5 MG TAB PO (22:04)
[2023-08-13] MEDS: Ascorbic Acid 500 MG TAB PO (22:04)
[2023-08-13] MEDS: Diclofenac 1% Gel 100 GM TUBE TP (22:05)
--- NOTE | 2023-08-13 22:48 | TELEP.MEDR_ITS ---
Date of service: 08/13/23 Time of Service: 22:48 Telepharmacy Home Med Rec Allergies Allergies: Penicillins Allergy (Intermediate, Unverified 08/13/23 09:49) rash transparent dressing Allergy (Mild, Unverified 08/13/23 09:49) rash procaine [From Novocain] Adverse Reaction (Mild, Unverified 08/13/23 09:49) light headed ativan Allergy (Intermediate, Uncoded 08/13/23 15:23) Interview Person Interviewed: * Facility MAR and housekeeping room attendant Quality of Interview/Accuracy of Medication List: Excellent Sources Sources used to compile medication list: [facility] Medication List, MAR and Michael Changes made to Home Medication List: ADDITIONS: * Advair 500/50 1 puff inhale BID * Afrin 2 sprays each nostril Q12h PRN * Alendronate 70mg PO every Wednesday * Clindamycin 300mg PO Q6H for 7 days (end 08/18/23) DELETIONS: * none CHANGES: * none Additional Notes Additional Notes: * none Recommended Changes Recommended Changes(reason for recommendation): * none Attestation: The home medication list is now updated to the best of my knowledge and is ready to be reconciled by the provider. Please contact the [facility] Medication Reconciliation Pharmacist at for any questions.
--- NOTE | 2023-08-13 22:48 | TELEP.MEDREC ---
Date of service: 08/13/23 Time of Service: 22:48 Telepharmacy Home Med Rec Allergies Allergies: Penicillins Allergy (Intermediate, Unverified 08/13/23 09:49) rash transparent dressing Allergy (Mild, Unverified 08/13/23 09:49) rash procaine [From Novocain] Adverse Reaction (Mild, Unverified 08/13/23 09:49) light headed ativan Allergy (Intermediate, Uncoded 08/13/23 15:23) Interview Person Interviewed: Facility MAR and hha Quality of Interview/Accuracy of Medication List: Excellent Sources Sources used to compile medication list: [facility] Medication List, [facility]AL[facility] and Michael Changes made to Home Medication List: ADDITIONS: Advair 500/50 1 puff inhale BID Afrin 2 sprays each nostril Q12h PRN Alendronate 70mg PO every Wednesday Clindamycin 300mg PO Q6H for 7 days (end 08/18/23) DELETIONS: none CHANGES: none Additional Notes Additional Notes: none Recommended Changes Recommended Changes(reason for recommendation): none Attestation: The home medication list is now updated to the best of my knowledge and is ready to be reconciled by the provider. Please contact the [facility] Medication Reconciliation Pharmacist at for any questions.
[2023-08-14] MEDS: CEFEPIME 2 GM in Normal Saline 100 ML IVPB ×2 (03:58→15:54)
[2023-08-14] MEDS: Ibuprofen 600 MG TAB PO ×3 (03:59→21:44)
[2023-08-14 04:03] VITALS: BP 139/64; PULSE 76; RESP 18; TEMP 36.6; O2SAT 94
[2023-08-14] MEDS: Levothyroxine 125 MCG TAB PO (06:14)
[2023-08-14 06:58] LABS: Abs Immature Grans 0.09 10^3/uL (0.0-0.06); Absolute Monocyte Count 0.86 10^3/uL (0.1-0.8); Basophils % 0.4; Eosinophils % 1.3; HCT 29.6 % (36.0-46.0); HGB 9.1 g/dL (11.2-15.7); Immature Grans % 0.6; Lymphocytes % 7.9; MCH 27.4 pg (27.0-33.0); MCHC 30.7 % (32.0-36.0); MCV 89 fL (80-95); MPV 9.8 fL (8.0-11.0); Neutrophils % 83.8; Platelet Count 241 10^3/uL (130-400); RBC 3.32 10^6/uL (3.93-5.22); RDW 14.9 % (11.7-14.6); RDW-SD 48.6 fL; WBC 14.25 10^3/uL (4.4-10.8)
[2023-08-14 07:04] LABS: Prothrombin Time 10.3 sec (9.1-11.1)
[2023-08-14 07:08] LABS: BUN 22 mg/dL (7-18); Calcium 8.5 mg/dL (8.5-10.1); Chloride 106 mmol/L (98-107); Estimated GFR 59.12 (mL/min/1.73m2); Glucose 102 mg/dL (74-106); Magnesium 2.2 mg/dL (1.8-2.4); Potassium 3.3 mmol/L (3.5-5.1); Sodium 139 mmol/L (136-145)
[2023-08-14 07:15] LABS: Absolute Basophil Count 0.06 10^3/uL (0.0-0.2); Absolute Eosinophil Count 0.19 10^3/uL (0.0-0.7); Absolute Lymphocyte Count 1.13 10^3/uL (1.2-3.4); Absolute Neutrophil Count 11.94 10^3/uL (1.2-6.7)
[2023-08-14 07:17] LABS: C-Reactive Protein 23.31 mg/dL (0.0-0.3)
[2023-08-14 07:36] LABS: Vitamin D 25 Total 24.8 ng/mL (30-100)
[2023-08-14 07:37] LABS: D-Dimer 658 ng/mlFEU (<500)
[2023-08-14 07:49] LABS: Ferritin 123 ng/mL (8-252)
[2023-08-14 09:23] VITALS: BP 145/74; PULSE 69; RESP 19; TEMP 36; O2SAT 95
[2023-08-14] MEDS: Potassium Chloride 20 MEQ TABCR 40 MEQ PO (09:24)
[2023-08-14] MEDS: Sertraline 100 MG TAB PO (09:25)
[2023-08-14] MEDS: Metoprolol CR 50 MG TABCR PO (09:25)
[2023-08-14] MEDS: Pantoprazole 20 MG TABCR PO ×2 (09:25→21:42)
[2023-08-14] MEDS: clonazePAM 0.5 MG TAB PO ×3 (09:26→21:42)
[2023-08-14] MEDS: Lisinopril 20 MG TAB 40 MG PO (09:26)
[2023-08-14] MEDS: Topiramate 25 MG TAB PO (09:26)
[2023-08-14] MEDS: Apixaban 5 MG TAB PO ×2 (09:26→21:41)
[2023-08-14] MEDS: Ascorbic Acid 500 MG TAB PO ×2 (09:27→21:41)
[2023-08-14] MEDS: Sertraline 25 MG TAB 75 MG PO (09:27)
[2023-08-14] MEDS: Cholecalciferol (Vitamin D3) 1,000 UNIT TAB 2000 UNITS PO (09:27)
[2023-08-14] MEDS: Fluticasone NASAL SPRAY 16 GM BTL NS (09:28)
[2023-08-14] MEDS: Loperamide 2 MG CAP 4 MG PO ×2 (09:28→15:54)
--- NOTE | 2023-08-14 10:10 | PT.INNT ---
PT Notes Visit Reasons: Cellulitis and Wound RLE Patient refused PT evaluation secondary to exterme right lower extreimity pain stemming from her cellulitis. Will defer evaluation to tomorrow.
[2023-08-14] MEDS: Acetaminophen 325 MG TAB PO (11:05)
[2023-08-14 11:12] VITALS: BP 135/73; PULSE 84; RESP 17; TEMP 36.9; O2SAT 92
--- NOTE | 2023-08-14 11:50 | PDOC.CMIN ---
Date of service: 08/14/23 Time of Service: 11:50 Care Management Initial Assmt Initial Assessment REASON FOR HOSPITALIZATION:: Cellulitis and wound RLE PREVIOUS FUNCTIONAL STATUS/SOCIAL/FAMILY SUPPORTS:: Danica currently resides at [facility]. She reports that she has been at [facility] since her , about a year and a half ago. She is originally from [place], [place], where she still owns a home. She reports that she has three children, but most often hears from her son, who lives in [place], [place]. She has limited mobility, uses a w/c at baseline, per report, and relies on the staff at [facility] to assist her with ADLs. She considers the staff and other residents of [facility] her family. CURRENT FUNCTIONAL STATUS:: Danica is on covid precautions, therefore CM did not visit in person, but did talk with Danica over the phone. She was pleasant and engaged in conversation. She stated that she is not feeling great today, but has a positive attitude and states that things will get better. CM reviewed her discharge plan, and informed Danica that CM will support her coordinated return to [facility], once she is medically cleared. She is agreeable to this plan. CM will continue to follow. ADVANCE DIRECTIVES:: Not on file at [facility]. Has patient been provided with info about the portal/API?: Yes Did the patient sign up for the portal?: No CODE STATUS:: Full Code INSURANCE COVERAGE / FINANCIAL ISSUES:: [facility]. [facility]. CURRENT HOME/COMMUNITY SERVICES/EQUIPMENT:: Danica resides at [facility] where her needs are being met. PRIMARY CARE PHYSICIAN:: facility provider POTENTIAL DISCHARGE NEEDS:: Coordinated return to [facility] PATIENT/FAMILY EDUCATION NEEDS:: Review discharge instructions and limitations, discussion of self care needs including ask me three. ANTICIPATED BARRIERS TO DISCHARGE:: None identified. TRANSPORTATION:: Via facility w/c van. PLAN:: Danica is being closely monitored, on covid precautions currently. Once she is medically cleared, CM will coordinate her return to [facility] via facility w/c van. She will follow up with facility providers and her discharge plan of care. CM will continue to follow. [facility] All Active Problems (Updated 08/13/23 @ 18:36 by Myra Kemp MD) Discharge planning issues (Acute) H/O deep venous thrombosis (Chronic) Wound of right lower extremity (Acute) Cellulitis of right lower extremity (Acute) Sepsis (Acute) COVID-19 (Acute) GERD (gastroesophageal reflux disease) (Chronic) IBS (irritable bowel syndrome) (Chronic) Restless legs syndrome (RLS) (Acute) Chronic back pain (Chronic) Ambulatory dysfunction (Chronic) Obesity (BMI 30.0-34.9) (Acute) Cellulitis (Acute) Medical History Pulmonary embolism DVT (deep venous thrombosis) Breast cancer, right Surgical History S/P breast reconstruction, right S/P right mastectomy Family History Brother Diabetes Sister Diabetes Sister Hypertension Sister Hypertension Melanoma Other Adopted Social History Smoking/Tobacco Use Status: Never Smoking risk assessment performed?: Yes Alcohol Intake: current Alcohol Intake frequency: holidays/special occasions only Drug use: Never Adopted: Yes Housing: retirement Do you feel safe at home: Yes Additional Social history:
[2023-08-14] MEDS: Normal Saline Flush 10 ML SYR IVP (13:06)
[2023-08-14] MEDS: REMDESIVIR 100 MG in Normal Saline 250 ML 250 MG IVPB (14:43)
[2023-08-14] MEDS: Benzonatate 100 MG CAP PO (15:54)
[2023-08-14] MEDS: VANCOMYCIN/WATER (PEG) 1.5 GM/300 ML BAG IV (16:49)
[2023-08-14] MEDS: Diclofenac 1% Gel 100 GM TUBE TP (16:50)
[2023-08-14 17:37] VITALS: BP 112/64; PULSE 70; RESP 17; TEMP 36.4; O2SAT 96
--- NOTE | 2023-08-14 19:00 | W.PM.PROGNOT ---
Date of Service Date of service: 08/14/23 Time of Service: 17:45 Assessment and Plan Assessment and plan (1) Cellulitis of right lower extremity: Status: Acute Assessment and plan: Having failed outpatient therapy with clindamycin. Improving on vancomycin/cefepime day 2. Blood cultures negative. It does not appear that the wound was cultured. Trend procalcitonin. (2) COVID-19: Status: Acute Assessment and plan: The patient is symptomatic in the sense of myalgias and back pain, which is acute on chronic. No resp symptoms. continue remdesivir. Will supplement vitamin C and D. Encourage IS. (3) Wound of right lower extremity: Status: Acute Assessment and plan: as above (4) Chronic back pain: Status: Chronic Assessment and plan: Continue outpatien therapy (5) Ambulatory dysfunction: Status: Chronic Assessment and plan: Continue working with PT. Wheel chair dependent normally (6) H/O deep venous thrombosis: Status: Chronic Assessment and plan: prior to this admission. Continue outpatient apixaban (7) Discharge planning issues: Status: Acute Assessment and plan: Full code as discussed with the patient Continues to require hospitalization. Subjective Subjective Interval history since last seen: Ms Patino states her breathing is better today. She continues to have aches/pain everywhere, especially her back. She didn't sleep and states she hasn't slept in a week. Denies dizziness, CP, SOB now, n/v. She is nervous about taking melatonin or a sleep aide tonight because she does not want to dream about her . Exam Narrative Exam Narrative: General: Pleasant elderly female who is quite talkative, does not appear short of breath, looks more comfortable today HEENT: EOMI, MMM Cardiovascular: RRR, no m/r/g Lungs: CTAB Gastrointestinal: soft, nontender, nondistended Extremities: +1 edema RLE much improved, trace edema LLE, 2+ pedal pulses B, no c/c. R foot is externally rotated. Objective Last Vital Signs Temp 36.4 C L 08/14/23 17:37 Pulse 70 08/14/23 17:37 Resp 17 08/14/23 17:37 BP 112/64 08/14/23 17:37 Pulse Ox 96 08/14/23 17:37 Laboratory Results - last 24 hr 08/14/23 06:15 WBC 14.25 H RBC 3.32 L Hgb 9.1 L Hct 29.6 L MCV 89 MCH 27.4 MCHC 30.7 L RDW 14.9 H Plt Count 241 MPV 9.8 Immature Gran % 0.6 Neutrophils % 83.8 Lymphocytes % 7.9 Monocytes % 6.0 Eosinophils % 1.3 Basophils % 0.4 Nucleated RBC % 0.0 Absolute Neutrophils 11.94 H Absolute Lymphocytes 1.13 L Absolute Monocytes 0.86 H Absolute Eosinophils 0.19 Absolute Basophils 0.06 PT 10.3 INR 1.0 D-Dimer 658 H Sodium 139 Potassium 3.3 L Chloride 106 Carbon Dioxide 24.0 Anion Gap 9.0 BUN 22 H Creatinine 1.0 Est GFR (CKD-EPI 2020) 59.12 Glucose 102 Calcium 8.5 Magnesium 2.2 Ferritin 123 C-Reactive Protein 23.31 H 25-OH Vitamin D Total 24.8 L Time Spent with Patient Time Spent with Patient: 25-34 minutes Time was spent: preparing to see the patient(eg.review tests), obtaining and/or reviewing separately otained hiistory, ordering medications,tests, procedures, referring, communicating with other health home care scheduler, indepentently interpreting results, counseling the patient and care coordination
[2023-08-14] MEDS: Topiramate 50 MG TAB PO (21:43)
[2023-08-14] MEDS: rOPINIRole 0.5 MG TAB 0.25 MG PO (21:43)
[2023-08-14] MEDS: Lidocaine 5% Patch 1 PATCH TP (21:44)
[2023-08-14] MEDS: Clotrimazole 1% 15 GM TUBE TP (22:19)
[2023-08-15] MEDS: Melatonin 3 MG TAB PO ×2 (00:02→23:55)
[2023-08-15] MEDS: Loperamide 2 MG CAP 4 MG PO ×4 (00:03→23:55)
[2023-08-15] MEDS: Acetaminophen 325 MG TAB PO ×2 (00:04→09:29)
[2023-08-15 00:05] VITALS: BP 139/62; PULSE 85; RESP 20; TEMP 37.6; O2SAT 93
[2023-08-15] MEDS: Ibuprofen 600 MG TAB PO ×3 (05:07→21:49)
[2023-08-15] MEDS: CEFEPIME 2 GM in Normal Saline 100 ML IVPB ×2 (05:08→15:26)
[2023-08-15] MEDS: Levothyroxine 125 MCG TAB PO (05:08)
[2023-08-15] MEDS: Normal Saline Flush 10 ML SYR IVP ×2 (05:09→21:51)
[2023-08-15 06:32] VITALS: BP 123/62; PULSE 74; RESP 17; TEMP 36.1; O2SAT 92
[2023-08-15 06:48] LABS: Absolute Monocyte Count 0.95 10^3/uL (0.1-0.8); Absolute Neutrophil Count 10.12 10^3/uL (1.2-6.7); Basophils % 0.5; Eosinophils % 2.3; HCT 28.2 % (36.0-46.0); HGB 8.8 g/dL (11.2-15.7); Immature Grans % 0.8; Lymphocytes % 12.8; MCH 27.6 pg (27.0-33.0); MCHC 31.2 % (32.0-36.0); MCV 88 fL (80-95); MPV 9.4 fL (8.0-11.0); Monocytes % 7.2; Neutrophils % 76.4; RBC 3.19 10^6/uL (3.93-5.22); RDW 15.1 % (11.7-14.6); RDW-SD 49.3 fL; WBC 13.24 10^3/uL (4.4-10.8)
[2023-08-15 06:53] LABS: Absolute Basophil Count 0.07 10^3/uL (0.0-0.2); Absolute Lymphocyte Count 1.69 10^3/uL (1.2-3.4)
[2023-08-15 07:05] LABS: INR 1.1 (0.9-1.1); Prothrombin Time 10.7 sec (9.1-11.1)
[2023-08-15 07:22] LABS: ALT 16 U/L (14-59); AST 16 U/L (15-37); Albumin 2.1 g/dL (3.4-5.0); Alkaline Phosphatase 83 U/L (46-116); Anion Gap 8.5 mmol/L (3-11); BUN 22 mg/dL (7-18); Bilirubin, Direct 0.1 mg/dL (0.0-0.2); Bilirubin, Total 0.3 mg/dL (0.2-1.0); C-Reactive Protein 15.44 mg/dL (0.0-0.3); CO2 22.5 mmol/L (21.0-32.0); CREATININE 0.8 mg/dL (0.55-1.02); Calcium 8.5 mg/dL (8.5-10.1); Chloride 107 mmol/L (98-107); Estimated GFR 77.27 (mL/min/1.73m2); Glucose 91 mg/dL (74-106); Magnesium 2.1 mg/dL (1.8-2.4); Potassium 3.6 mmol/L (3.5-5.1); Sodium 138 mmol/L (136-145); Total Protein 6.7 g/dL (6.4-8.2)
[2023-08-15 07:28] LABS: Iron 21 ug/dL (50-170); Total Iron Binding Capacity 241 ug/dL (250-450); Transferrin Sat 9 % (15-50)
[2023-08-15 07:33] LABS: D-Dimer 650 ng/mlFEU (<500)
[2023-08-15 07:42] LABS: Diff Comment Diff Reviewed; Hypochromasia 2+; Platelet Count 265 10^3/uL (130-400)
[2023-08-15] MEDS: Sertraline 25 MG TAB 75 MG PO (08:13)
[2023-08-15] MEDS: Cholecalciferol (Vitamin D3) 1,000 UNIT TAB 2000 UNITS PO (08:14)
[2023-08-15] MEDS: Potassium Chloride 20 MEQ TABCR 40 MEQ PO (08:16)
[2023-08-15] MEDS: Sertraline 100 MG TAB PO (08:17)
[2023-08-15] MEDS: Topiramate 25 MG TAB PO (08:17)
[2023-08-15] MEDS: Metoprolol CR 50 MG TABCR PO (08:17)
[2023-08-15] MEDS: Ascorbic Acid 500 MG TAB PO ×2 (08:18→21:49)
[2023-08-15] MEDS: Apixaban 5 MG TAB PO ×2 (08:18→21:49)
[2023-08-15] MEDS: Lisinopril 20 MG TAB 40 MG PO (08:19)
[2023-08-15] MEDS: clonazePAM 0.5 MG TAB PO ×3 (08:19→21:50)
[2023-08-15] MEDS: Pantoprazole 20 MG TABCR PO ×2 (08:20→21:50)
--- NOTE | 2023-08-15 09:19 | PT.INNT ---
Date of service: 08/15/23 Time of Service: 09:20 PT Notes Visit Reasons: Cellulitis and Wound RLE Patient again refusing evaluation. Communicated with nursing, who asked PT evaluation of patient as well.
[2023-08-15] MEDS: Fluticasone NASAL SPRAY 16 GM BTL NS (09:29)
[2023-08-15] MEDS: Diclofenac 1% Gel 100 GM TUBE TP ×2 (09:30→12:03)
[2023-08-15] MEDS: Clotrimazole 1% 15 GM TUBE TP ×2 (09:32→21:50)
[2023-08-15] MEDS: Benzonatate 100 MG CAP PO (09:52)
[2023-08-15] MEDS: Patch Removal 1 EACH TD (09:52)
[2023-08-15 12:04] VITALS: BP 137/69; PULSE 69; RESP 18; TEMP 36.6; O2SAT 95
[2023-08-15 12:37] LABS: Ferritin 115 ng/mL (8-252); Folate 19.2 ng/mL (8.6-20.0)
[2023-08-15] MEDS: REMDESIVIR 100 MG in Normal Saline 250 ML 250 MG IVPB (13:40)
[2023-08-15 15:38] VITALS: BP 125/71; PULSE 68; RESP 18; TEMP 36.5; O2SAT 94
[2023-08-15] MEDS: VANCOMYCIN/WATER (PEG) 1.5 GM/300 ML BAG IV (16:23)
[2023-08-15 20:13] VITALS: BP 149/75; PULSE 82; RESP 18; TEMP 37.7; O2SAT 95
--- NOTE | 2023-08-15 21:05 | W.PM.PROGNOT ---
Date of Service Date of service: 08/15/23 Time of Service: 21:06 Assessment and Plan Assessment and plan (1) Cellulitis of right lower extremity: Status: Acute Assessment and plan: Having failed outpatient therapy with clindamycin. Improving on vancomycin/cefepime day 3. Blood cultures negative. It does not appear that the wound was cultured. Trend procalcitonin. Add diuretics. (2) COVID-19: Status: Acute Assessment and plan: The patient is symptomatic in the sense of myalgias and back pain, which is acute on chronic. Today she is short of breath. Add inhalers. Continue remdesivir. Will supplement vitamin C and D. Encourage IS. (3) Wound of right lower extremity: Status: Acute Assessment and plan: as above (4) Chronic back pain: Status: Chronic Assessment and plan: Continue outpatien therapy (5) Ambulatory dysfunction: Status: Chronic Assessment and plan: Continue working with PT. Wheel chair dependent normally (6) H/O deep venous thrombosis: Status: Chronic Assessment and plan: prior to this admission. Continue outpatient apixaban (7) Discharge planning issues: Status: Acute Assessment and plan: Full code as discussed with the patient Continues to require hospitalization. Subjective Subjective Interval history since last seen: Ms Patino is not feeling well. Between feeling hot and cold, having body aches and R leg pain, especially, and feeling nauseated, she just does not feel like herself. We discussed how she had two good reasons to feel sick and that this is temporary, she will get better. She states she is a little more short of breath today. She has been working with IS and acapella. Exam Narrative Exam Narrative: General: Pleasant elderly female who is quite talkative, does not appear short of breath, looks like she is not feeling well HEENT: EOMI, MMM Cardiovascular: RRR, no m/r/g Lungs: coarse breath sounds B Gastrointestinal: soft, nontender, nondistended Extremities: +2 edema RLE about the same as yesterday, trace edema LLE, 2+ pedal pulses B, no c/c. R foot is externally rotated. Objective Last Vital Signs Temp 37.7 C H 08/15/23 20:13 Pulse 82 08/15/23 20:13 Resp 18 08/15/23 20:13 BP 149/75 H 08/15/23 20:13 Pulse Ox 95 08/15/23 20:13 Laboratory Results - last 24 hr 08/15/23 05:56 WBC 13.24 H RBC 3.19 L Hgb 8.8 L Hct 28.2 L MCV 88 MCH 27.6 MCHC 31.2 L RDW 15.1 H Plt Count 265 MPV 9.4 Immature Gran % 0.8 Neutrophils % 76.4 Lymphocytes % 12.8 Monocytes % 7.2 Eosinophils % 2.3 Basophils % 0.5 Nucleated RBC % 0.0 Absolute Neutrophils 10.12 H Absolute Lymphocytes 1.69 Absolute Monocytes 0.95 H Absolute Eosinophils 0.30 Absolute Basophils 0.07 RBC Morphology See Below Hypochromasia 2+ PT 10.7 INR 1.1 D-Dimer 650 H Sodium 138 Potassium 3.6 Chloride 107 Carbon Dioxide 22.5 Anion Gap 8.5 BUN 22 H Creatinine 0.8 Est GFR (CKD-EPI 2020) 77.27 Glucose 91 Calcium 8.5 Magnesium 2.1 Iron 21 L TIBC 241 L Transferrin % Sat 9 L Ferritin 115 Total Bilirubin 0.3 Conjugated Bilirubin 0.1 AST 16 ALT 16 Alkaline Phosphatase 83 C-Reactive Protein 15.44 H Total Protein 6.7 Albumin 2.1 L Folate 19.2 Procalcitonin 1.0 Time Spent with Patient Time Spent with Patient: 35-49 minutes Time was spent: preparing to see the patient(eg.review tests), obtaining and/or reviewing separately otained hiistory, ordering medications,tests, procedures, referring, communicating with other health career technical supervisor, indepentently interpreting results, counseling the patient and care coordination
[2023-08-15] MEDS: rOPINIRole 0.5 MG TAB 0.25 MG PO (21:49)
[2023-08-15] MEDS: Topiramate 50 MG TAB PO (21:50)
[2023-08-15] MEDS: Lidocaine 5% Patch 1 PATCH TP (21:53)
[2023-08-15 23:57] VITALS: BP 173/65; PULSE 82; RESP 20; TEMP 36.7; O2SAT 91
[2023-08-16] MEDS: Ibuprofen 600 MG TAB PO ×3 (00:09→14:43)
[2023-08-16 04:10] VITALS: BP 116/65; PULSE 70; RESP 18; TEMP 35.9; O2SAT 92
[2023-08-16] MEDS: Levothyroxine 125 MCG TAB PO (05:07)
[2023-08-16] MEDS: Acetaminophen 325 MG TAB PO ×3 (05:08→22:36)
[2023-08-16] MEDS: CEFEPIME 2 GM in Normal Saline 100 ML IVPB ×2 (05:09→16:16)
[2023-08-16 07:07] LABS: Abs Immature Grans 0.16 10^3/uL (0.0-0.06); Absolute Basophil Count 0.05 10^3/uL (0.0-0.2); Absolute Eosinophil Count 0.31 10^3/uL (0.0-0.7); Absolute Lymphocyte Count 1.62 10^3/uL (1.2-3.4); Absolute Monocyte Count 1.02 10^3/uL (0.1-0.8); Basophils % 0.4; Eosinophils % 2.5; HCT 28.3 % (36.0-46.0); HGB 8.9 g/dL (11.2-15.7); Immature Grans % 1.3; Lymphocytes % 12.9; MCH 27.8 pg (27.0-33.0); MCHC 31.4 % (32.0-36.0); MCV 88 fL (80-95); MPV 9.7 fL (8.0-11.0); Monocytes % 8.1; Neutrophils % 74.8; Platelet Count 299 10^3/uL (130-400); RDW 15.3 % (11.7-14.6); RDW-SD 49.9 fL; WBC 12.56 10^3/uL (4.4-10.8)
[2023-08-16 07:09] LABS: Absolute Neutrophil Count 9.39 10^3/uL (1.2-6.7)
[2023-08-16 07:35] LABS: Anion Gap 10.3 mmol/L (3-11); BUN 18 mg/dL (7-18); CO2 21.7 mmol/L (21.0-32.0); CREATININE 0.7 mg/dL (0.55-1.02); Calcium 8.5 mg/dL (8.5-10.1); Chloride 108 mmol/L (98-107); Glucose 93 mg/dL (74-106); Magnesium 2.1 mg/dL (1.8-2.4); Potassium 3.7 mmol/L (3.5-5.1); Sodium 140 mmol/L (136-145)
[2023-08-16 07:59] VITALS: BP 133/71; PULSE 73; RESP 18; TEMP 36.6; O2SAT 95
[2023-08-16] MEDS: Furosemide 20 MG/2 ML VIAL IVP ×2 (08:01→21:02)
[2023-08-16] MEDS: Apixaban 5 MG TAB PO ×2 (08:01→21:02)
[2023-08-16] MEDS: Metoprolol CR 50 MG TABCR PO (08:02)
[2023-08-16] MEDS: Cholecalciferol (Vitamin D3) 1,000 UNIT TAB 2000 UNITS PO (08:02)
[2023-08-16] MEDS: Sertraline 25 MG TAB 75 MG PO (08:02)
[2023-08-16] MEDS: Benzonatate 100 MG CAP PO ×3 (08:03→22:36)
[2023-08-16] MEDS: Lisinopril 20 MG TAB 40 MG PO (08:03)
[2023-08-16] MEDS: clonazePAM 0.5 MG TAB PO ×3 (08:03→21:02)
[2023-08-16] MEDS: Sertraline 100 MG TAB PO (08:03)
[2023-08-16] MEDS: Loperamide 2 MG CAP 4 MG PO ×3 (08:03→22:36)
[2023-08-16] MEDS: Topiramate 25 MG TAB PO (08:03)
[2023-08-16] MEDS: Pantoprazole 20 MG TABCR PO ×2 (08:03→21:02)
[2023-08-16] MEDS: Potassium Chloride 20 MEQ TABCR 40 MEQ PO (08:03)
[2023-08-16] MEDS: Ascorbic Acid 500 MG TAB PO ×2 (08:03→21:02)
[2023-08-16] MEDS: Fluticasone NASAL SPRAY 16 GM BTL NS (08:04)
[2023-08-16] MEDS: Ipratropium/Albuterol 4 GM 120 PUFF INH IH ×4 (08:21→19:09)
--- NOTE | 2023-08-16 08:37 | CMPROGNOTE_ITS ---
Date of service: 08/16/23 Time of Service: 08:37 Care Management Progress Note Progress Note Text Progress Note Text: S/O: Danica has covid and is being closely monitored and treated with Remdisavir and IV ABX. She is on covid precautions. Pt is from [facility] and has been there for over a year and will return when she is medically able. SNF is unable to accommodate LT IV ABX, anticipate pt will need to transition to SWB status here if jail IV therapy is needed. A: 72 year old female admitted to [facility] on 08/13/23 for cellulitis, covid P: Danica is being closely monitored, on covid precautions currently. Once she is medically cleared, CM will coordinate her return to [facility] via facility w/c van. She will follow up with facility providers and her discharge plan of care. CM will continue to follow.
[2023-08-16 11:55] VITALS: BP 145/70; PULSE 68; RESP 18; TEMP 36.6; O2SAT 96
[2023-08-16] MEDS: Refresh PLUS Eye Drops 0.4ml OU (12:01)
[2023-08-16 12:05] LABS: MRSA PCR Negative (Negative)
[2023-08-16] MEDS: Normal Saline Flush 10 ML SYR IVP (13:22)
[2023-08-16] MEDS: REMDESIVIR 100 MG in Normal Saline 250 ML 250 MG IVPB (13:23)
[2023-08-16 15:44] LABS: Vancomycin, Trough 12.8 ug/mL (10.0-20.0)
[2023-08-16 15:49] VITALS: BP 136/67; PULSE 67; RESP 17; TEMP 36.2; O2SAT 95
--- NOTE | 2023-08-16 16:57 | W.PM.PROGNOT ---
Date of Service Date of service: 08/16/23 Time of Service: 16:57 Assessment and Plan Assessment and plan (1) Cellulitis of right lower extremity: Status: Acute Assessment and plan: Having failed outpatient therapy with clindamycin. Improving on vancomycin/cefepime day 4 Blood cultures NGTD. trend inflammatory markers (wbc, procalcitonin, CRP) Add diuretics. check venous duplex of her right leg, although she has been on apixaban chronically for prior DVT and should not have acute DVT. (2) COVID-19: Status: Acute Assessment and plan: The patient is symptomatic in the sense of myalgias and back pain, which is acute on chronic. she is not dyspneic and is able to talk up a storm (complete paragraphs) continue Remdesivir treatment, vitamin C and vitamin D (3) Wound of right lower extremity: Status: Acute Assessment and plan: as above Qualifiers: Encounter type: initial encounter Qualified Code(s): S81.801A - Unspecified open wound, right lower leg, initial encounter (4) Chronic back pain: Status: Chronic Assessment and plan: Continue outpatien therapy Qualifiers: Back pain location: low back pain Back pain laterality: right Sciatica presence: unspecified whether sciatica present Qualified Code(s): M54.50 - Low back pain, unspecified; G89.29 - Other chronic pain (5) Ambulatory dysfunction: Status: Chronic Assessment and plan: Continue working with PT. Wheel chair dependent normally (6) H/O deep venous thrombosis: Status: Chronic Assessment and plan: prior to this admission. Continue outpatient apixaban (7) Discharge planning issues: Status: Acute Assessment and plan: Full code as discussed with the patient Continues to require hospitalization. Subjective Subjective Interval history since last seen: Patient continues to have severe right leg pain but also has lower back pain ( a chronic problem for her d/t DDD). She has not had any fevers, and her inflammatory markers are declining w/ antibotic treatment of her RLE cellulitis (WBC 20,400>14,250>12,560) and CRP >25, 23, 15 and procalcitonin 3.0, 1.0. Exam Narrative Exam Narrative: Elderly white female who is sitting up in bed w/ her RLE elevated on pillow. RLE w/ salmon pink discoloration of the anterior tibia but the line of demarcation is receding from its highest point which was just below the patella; there is still significant edema of the calf and she is tender over the thigh as well although it is soft, right antierior tibia has small ulceration which is bandaged. Pedal pulses intact bilaterally Lungs: clear Heart: RRR Abdomen: soft, nondistended, nontender Objective Last Vital Signs Temp 36.2 C L 08/16/23 15:49 Pulse 67 08/16/23 15:49 Resp 17 08/16/23 15:49 BP 136/67 08/16/23 15:49 Pulse Ox 95 08/16/23 15:49 Laboratory Results - last 24 hr 08/16/23 08/16/23 08/16/23 06:31 09:13 15:15 WBC 12.56 H RBC 3.20 L Hgb 8.9 L Hct 28.3 L MCV 88 MCH 27.8 MCHC 31.4 L RDW 15.3 H Plt Count 299 MPV 9.7 Immature Gran % 1.3 Neutrophils % 74.8 Lymphocytes % 12.9 Monocytes % 8.1 Eosinophils % 2.5 Basophils % 0.4 Nucleated RBC % 0.0 Absolute Neutrophils 9.39 H Absolute Lymphocytes 1.62 Absolute Monocytes 1.02 H Absolute Eosinophils 0.31 Absolute Basophils 0.05 Sodium 140 Potassium 3.7 Chloride 108 H Carbon Dioxide 21.7 Anion Gap 10.3 BUN 18 Creatinine 0.7 Est GFR (CKD-EPI 2020) 90.70 Glucose 93 Calcium 8.5 Magnesium 2.1 Vancomycin Trough 12.8 MRSA (TEM-PCR) Negative Time Spent with Patient Time Spent with Patient: 35-49 minutes Time was spent: preparing to see the patient(eg.review tests), ordering medications,tests, procedures, referring, communicating with other health intensive care unit registered nurse, indepentently interpreting results, counseling the patient and care coordination
[2023-08-16] MEDS: VANCOMYCIN/WATER (PEG) 1 GM/200 ML BAG IV (18:14)
[2023-08-16 19:48] LABS: Lab Add On Test DONE
[2023-08-16 20:04] LABS: Creatine Kinase 18 U/L (26-192)
[2023-08-16 20:15] VITALS: BP 114/67; PULSE 75; RESP 18; TEMP 37.4; O2SAT 94
[2023-08-16] MEDS: Topiramate 50 MG TAB PO (21:02)
[2023-08-16] MEDS: Clotrimazole 1% 15 GM TUBE TP (21:03)
[2023-08-16] MEDS: rOPINIRole 0.5 MG TAB 0.25 MG PO (21:05)
[2023-08-16] MEDS: Melatonin 3 MG TAB PO (22:35)
--- NOTE | 2023-08-17 | DI.RAD_ITS ---
Exam(s) XR TIB/FIB RT EXAM: XR TIB/FIB RT CLINICAL HISTORY: cellulitis right tibia; r/o osteomyelitis. TECHNIQUE: 2D digital imaging was performed. Two views. Portable COMPARISON: No exams were available for comparison FINDINGS: BONES: No acute fracture is present. No bony destructive lesion is seen. There is severe degenerative changes at the knee. Hardware is noted in the distal tibia and fibula. SOFT TISSUE: Soft tissue swelling. No gas collection or foreign body. IMPRESSION: No plain film findings of osteomyelitis. DATA REPOSITORY: RADIATION DOSE DELIVERED:
[2023-08-17] MEDS: CEFEPIME 2 GM in Normal Saline 100 ML IVPB ×2 (03:13→16:04)
[2023-08-17] MEDS: Benzonatate 100 MG CAP PO ×2 (05:17→21:58)
[2023-08-17] MEDS: Ibuprofen 600 MG TAB PO ×3 (05:17→21:59)
[2023-08-17] MEDS: VANCOMYCIN/WATER (PEG) 1 GM/200 ML BAG IV ×2 (05:17→17:05)
[2023-08-17] MEDS: Levothyroxine 125 MCG TAB PO (05:18)
[2023-08-17 05:24] VITALS: BP 149/67; PULSE 80; RESP 18; TEMP 36.3; O2SAT 94
[2023-08-17 07:56] LABS: Abs Immature Grans 0.34 10^3/uL (0.0-0.06); Absolute Basophil Count 0.06 10^3/uL (0.0-0.2); Absolute Monocyte Count 1.07 10^3/uL (0.1-0.8); Basophils % 0.4; Eosinophils % 2.9; HCT 29.4 % (36.0-46.0); HGB 9.1 g/dL (11.2-15.7); Immature Grans % 2.4; Lymphocytes % 12.6; MCH 27.1 pg (27.0-33.0); MCV 88 fL (80-95); Monocytes % 7.5; Neutrophils % 74.2; Platelet Count 363 10^3/uL (130-400); RBC 3.36 10^6/uL (3.93-5.22); RDW 15.1 % (11.7-14.6); RDW-SD 48.3 fL; WBC 14.33 10^3/uL (4.4-10.8)
--- NOTE | 2023-08-17 08:00 | DI.US_ITS ---
Exam(s) US LOWER EXTREMITY VENOUS RT EXAM: US LOWER EXTREMITY VENOUS RT CLINICAL HISTORY: right leg pain and edema. TECHNIQUE: Lower extremity venous ultrasound performed using grayscale, color-flow, and spectral Do ppler analysis. COMPARISON: None FINDINGS: The common femoral, femoral and popliteal veins demonstrate normal compressibility, augmentation, and color Doppler. The posterior tibial veins are patent where visualized.. No saphenous vein thrombosi s or other superficial venous thrombosis is seen. No hematoma or Bowser's cyst is seen. IMPRESSION: Negative lower extremity ultrasound. No evidence of DVT. DATA REPOSITORY:
[2023-08-17 08:06] LABS: Absolute Eosinophil Count 0.42 10^3/uL (0.0-0.7); Absolute Lymphocyte Count 1.81 10^3/uL (1.2-3.4); Absolute Neutrophil Count 10.63 10^3/uL (1.2-6.7)
[2023-08-17 08:08] LABS: Anion Gap 8.3 mmol/L (3-11); BUN 18 mg/dL (7-18); C-Reactive Protein 13.14 mg/dL (0.0-0.3); CO2 24.7 mmol/L (21.0-32.0); CREATININE 0.8 mg/dL (0.55-1.02); Calcium 8.6 mg/dL (8.5-10.1); Chloride 103 mmol/L (98-107); Estimated GFR 77.27 (mL/min/1.73m2); Glucose 100 mg/dL (74-106); Potassium 3.8 mmol/L (3.5-5.1); Sodium 136 mmol/L (136-145)
[2023-08-17 08:15] VITALS: O2SAT 95
[2023-08-17] MEDS: Ipratropium/Albuterol 4 GM 120 PUFF INH IH ×4 (08:15→19:11)
--- NOTE | 2023-08-17 08:41 | PDOC.CMPRO ---
Date of service: 08/17/23 Time of Service: 08:41 Care Management Progress Note Progress Note Text Progress Note Text: S/O: Danica has covid and is being closely monitored and treated with Remdisavir and IV ABX. She is on covid precautions. Pt is from [facility] and has been there for over a year and will return when she is medically able. SNF is unable to accommodate LT IV ABX, anticipate pt will need to transition to SWB status here if prison IV therapy is needed. A: 72 year old female admitted to [facility] on 08/13/23 for cellulitis, covid P: Danica is being closely monitored, on covid precautions currently. Once she is medically cleared, CM will coordinate her return to [facility] via facility w/c van. She will follow up with facility providers and her discharge plan of care. CM will continue to follow.
[2023-08-17 08:42] LABS: Procalcitonin 0.3 ng/mL
[2023-08-17] MEDS: Furosemide 20 MG/2 ML VIAL IVP ×2 (08:48→16:04)
[2023-08-17] MEDS: Normal Saline Flush 10 ML SYR IVP (08:49)
[2023-08-17] MEDS: Docusate Sodium 100 MG CAP PO (08:54)
[2023-08-17] MEDS: Ascorbic Acid 500 MG TAB PO ×2 (08:55→21:59)
[2023-08-17] MEDS: Potassium Chloride 20 MEQ TABCR 40 MEQ PO (08:55)
[2023-08-17] MEDS: Cholecalciferol (Vitamin D3) 1,000 UNIT TAB 2000 UNITS PO (08:55)
[2023-08-17] MEDS: Metoprolol CR 50 MG TABCR PO (08:55)
[2023-08-17] MEDS: Topiramate 25 MG TAB PO (08:56)
[2023-08-17] MEDS: Pantoprazole 20 MG TABCR PO ×2 (08:56→21:59)
[2023-08-17] MEDS: Apixaban 5 MG TAB PO ×2 (08:56→21:59)
[2023-08-17] MEDS: Sertraline 25 MG TAB 75 MG PO (08:56)
[2023-08-17] MEDS: Lisinopril 20 MG TAB 40 MG PO (08:56)
[2023-08-17] MEDS: Clotrimazole 1% 15 GM TUBE TP ×2 (08:57→21:59)
[2023-08-17] MEDS: Sertraline 100 MG TAB PO (08:57)
[2023-08-17] MEDS: clonazePAM 0.5 MG TAB PO ×3 (08:57→21:59)
[2023-08-17] MEDS: Diclofenac 1% Gel 100 GM TUBE TP (08:58)
[2023-08-17] MEDS: Fluticasone NASAL SPRAY 16 GM BTL NS (08:58)
--- NOTE | 2023-08-17 10:06 | W.PM.PROGNOT ---
Date of Service Date of service: 08/17/23 Time of Service: 10:06 Assessment and Plan Assessment and plan (1) Cellulitis of right lower extremity: Status: Acute Assessment and plan: Having failed outpatient therapy with clindamycin. Improving on vancomycin/cefepime day 5 Blood cultures NGTD. wound culture: moderate growth of mixed gram positive cocci trend inflammatory markers (wbc, procalcitonin, CRP) Add diuretics. check venous duplex of her right leg, although she has been on apixaban chronically for prior DVT and should not have acute DVT. duplex was done this morning but results are pending (2) COVID-19: Status: Acute Assessment and plan: The patient is symptomatic in the sense of myalgias and back pain, which is acute on chronic. she is not dyspneic and is able to talk up a storm (complete paragraphs) continue Remdesivir treatment, day #5 of 5, vitamin C and vitamin D (3) Chronic back pain: Status: Chronic Assessment and plan: Continue outpatien therapy Qualifiers: Back pain location: low back pain Back pain laterality: right Sciatica presence: unspecified whether sciatica present Qualified Code(s): M54.50 - Low back pain, unspecified; G89.29 - Other chronic pain (4) Ambulatory dysfunction: Status: Chronic Assessment and plan: Continue working with PT. Wheel chair dependent normally (5) H/O deep venous thrombosis: Status: Chronic Assessment and plan: prior to this admission. Continue home dose of apixaban (6) Discharge planning issues: Status: Acute Assessment and plan: Full code as discussed with the patient Continues to require hospitalization. Subjective Subjective Interval history since last seen: Danica is slowly improving. Edema and redness of her right leg is improving. Still has a lot of pain however. I will check plain film xray of her right tibia to evaluate for osteomyelitis. If her cellulitis does not resolve then I will consider MRI of her leg, however, I have held off an MRI in light of her COVID status. Exam Narrative Exam Narrative: Danica is sitting up in bed watching TV in no acute distress Right leg shows recession maximum distance that her cellulitis has progressed. Nursing and strong warning just below right patella in the area of redness has receded markedly lower two thirds of the tibia and the skin has a pink salmon coloration to it rather than the bright red erythema. The edema has improved markedly. She still has a Mepilex over the pretibial wound. Pedal pulses are intact Right leg is still painful to palpation; negative SLR test w/ regard to her back pain Objective Last Vital Signs Temp 36.3 C L 08/17/23 05:24 Pulse 80 08/17/23 05:24 Resp 18 08/17/23 05:24 BP 149/67 H 08/17/23 05:24 Pulse Ox 95 08/17/23 08:15 Laboratory Results - last 24 hr 08/16/23 08/16/23 08/17/23 09:13 15:15 07:15 WBC 14.33 H RBC 3.36 L Hgb 9.1 L Hct 29.4 L MCV 88 MCH 27.1 MCHC 31.0 L RDW 15.1 H Plt Count 363 MPV 9.0 Immature Gran % 2.4 Neutrophils % 74.2 Lymphocytes % 12.6 Monocytes % 7.5 Eosinophils % 2.9 Basophils % 0.4 Nucleated RBC % 0.0 Absolute Neutrophils 10.63 H Absolute Lymphocytes 1.81 Absolute Monocytes 1.07 H Absolute Eosinophils 0.42 Absolute Basophils 0.06 Sodium 136 Potassium 3.8 Chloride 103 Carbon Dioxide 24.7 Anion Gap 8.3 BUN 18 Creatinine 0.8 Est GFR (CKD-EPI 2020) 77.27 Glucose 100 Calcium 8.6 Magnesium 2.0 Creatine Kinase 18 L C-Reactive Protein Procalcitonin Vancomycin Trough 12.8 MRSA (TEM-PCR) Negative Add-On Test Request DONE 08/17/23 07:15 WBC RBC Hgb Hct MCV MCH MCHC RDW Plt Count MPV Immature Gran % Neutrophils % Lymphocytes % Monocytes % Eosinophils % Basophils % Nucleated RBC % Absolute Neutrophils Absolute Lymphocytes Absolute Monocytes Absolute Eosinophils Absolute Basophils Sodium Potassium Chloride Carbon Dioxide Anion Gap BUN Creatinine Est GFR (CKD-EPI 2020) Glucose Calcium Magnesium Cancelled Creatine Kinase C-Reactive Protein 13.14 H Procalcitonin 0.3 Vancomycin Trough MRSA (TEM-PCR) Add-On Test Request Time Spent with Patient Time Spent with Patient: 35-49 minutes Time was spent: preparing to see the patient(eg.review tests), ordering medications,tests, procedures, referring, communicating with other health neonatal intensive care nurse, indepentently interpreting results, counseling the patient and care coordination
[2023-08-17] MEDS: Acetaminophen 325 MG TAB PO ×2 (12:05→21:58)
[2023-08-17 12:09] VITALS: BP 175/80; PULSE 72; RESP 18; TEMP 37; O2SAT 95
[2023-08-17] MEDS: Refresh PLUS Eye Drops 0.4ml OU (12:17)
[2023-08-17] MEDS: REMDESIVIR 100 MG in Normal Saline 250 ML 250 MG IVPB (13:11)
[2023-08-17 13:32] VITALS: BP 124/72; PULSE 68; RESP 18; TEMP 36.8; O2SAT 94
[2023-08-17 16:55] VITALS: BP 146/75; PULSE 67; RESP 18; TEMP 37; O2SAT 94
[2023-08-17] MEDS: Budesonide/Formoterol 160/4.5 6 GM 60 PUFF INH IH (21:37)
[2023-08-17] MEDS: rOPINIRole 0.5 MG TAB 0.25 MG PO (21:58)
[2023-08-17] MEDS: Topiramate 50 MG TAB PO (21:59)
[2023-08-17 22:05] VITALS: BP 166/80; PULSE 77; RESP 18; TEMP 37.2; O2SAT 99
[2023-08-17] MEDS: Melatonin 3 MG TAB PO (22:15)
[2023-08-18] MEDS: CEFEPIME 2 GM in Normal Saline 100 ML IVPB (03:11)
[2023-08-18] MEDS: VANCOMYCIN/WATER (PEG) 1 GM/200 ML BAG IV (05:22)
[2023-08-18] MEDS: Levothyroxine 125 MCG TAB PO (05:22)
[2023-08-18 07:02] VITALS: BP 117/65; PULSE 61; RESP 18; TEMP 36.7; O2SAT 92
[2023-08-18 07:25] LABS: Abs Immature Grans 0.62 10^3/uL (0.0-0.06); HCT 30.6 % (36.0-46.0); HGB 9.5 g/dL (11.2-15.7); MCH 27.3 pg (27.0-33.0); MCV 88 fL (80-95); MPV 8.7 fL (8.0-11.0); Platelet Count 416 10^3/uL (130-400); RBC 3.48 10^6/uL (3.93-5.22); RDW 15.1 % (11.7-14.6); RDW-SD 48.6 fL
[2023-08-18 07:41] LABS: Absolute Neutrophil Count 7.56 10^3/uL (1.2-6.7); Bands % 0
[2023-08-18 07:42] LABS: Absolute Eosinophil Count 0.54 10^3/uL (0.0-0.7); Absolute Lymphocyte Count 1.19 10^3/uL (1.2-3.4); Atypical Lymphocytes % 1; Diff Comment Manual Differential; Metamyelocytes % 1; Myelocytes % 1; RBC Morphology Normal
[2023-08-18 07:48] LABS: Anion Gap 7.6 mmol/L (3-11); BUN 24 mg/dL (7-18); C-Reactive Protein 10.19 mg/dL (0.0-0.3); CO2 26.4 mmol/L (21.0-32.0); CREATININE 0.8 mg/dL (0.55-1.02); Calcium 8.8 mg/dL (8.5-10.1); Chloride 104 mmol/L (98-107); Estimated GFR 77.27 (mL/min/1.73m2); Glucose 103 mg/dL (74-106); Potassium 3.9 mmol/L (3.5-5.1); Sodium 138 mmol/L (136-145)
[2023-08-18] MEDS: Pantoprazole 20 MG TABCR PO ×2 (08:15→20:02)
[2023-08-18] MEDS: Loperamide 2 MG CAP 4 MG PO (08:15)
[2023-08-18] MEDS: Apixaban 5 MG TAB PO ×2 (08:16→20:02)
[2023-08-18] MEDS: Ascorbic Acid 500 MG TAB PO ×2 (08:16→20:02)
[2023-08-18] MEDS: Cholecalciferol (Vitamin D3) 1,000 UNIT TAB 2000 UNITS PO (08:16)
[2023-08-18] MEDS: clonazePAM 0.5 MG TAB PO ×3 (08:16→20:02)
[2023-08-18] MEDS: Lisinopril 20 MG TAB 40 MG PO (08:17)
[2023-08-18] MEDS: Diclofenac 1% Gel 100 GM TUBE TP (08:17)
[2023-08-18] MEDS: Fluticasone NASAL SPRAY 16 GM BTL NS (08:17)
[2023-08-18] MEDS: Clotrimazole 1% 15 GM TUBE TP ×2 (08:17→20:03)
[2023-08-18] MEDS: Furosemide 20 MG/2 ML VIAL IVP ×2 (08:17→15:28)
[2023-08-18] MEDS: Metoprolol CR 50 MG TABCR PO (08:18)
[2023-08-18] MEDS: Topiramate 25 MG TAB PO (08:19)
[2023-08-18] MEDS: Potassium Chloride 20 MEQ TABCR 40 MEQ PO (08:19)
[2023-08-18] MEDS: Sertraline 25 MG TAB 75 MG PO (08:19)
[2023-08-18] MEDS: Sertraline 100 MG TAB PO (08:19)
[2023-08-18] MEDS: Benzonatate 100 MG CAP PO ×2 (08:32→15:34)
[2023-08-18] MEDS: Ipratropium/Albuterol 4 GM 120 PUFF INH IH ×4 (08:41→19:17)
[2023-08-18] MEDS: Budesonide/Formoterol 160/4.5 6 GM 60 PUFF INH IH ×2 (08:42→19:16)
--- NOTE | 2023-08-18 09:31 | CMPROGNOTE_ITS ---
Date of service: 08/18/23 Time of Service: 09:31 Care Management Progress Note Progress Note Text Progress Note Text: S/O: CM spoke with Danica over the phone, she is very talkative and happy with the care she is receiving. She has covid and is being closely monitored and treated with Remdisavir, in addition to cellulites of her RLE which is being treated with IV vancomycin/cefepime. Her leg is throbbing and she asks about rotating tylenol with Ibuprofen, CM notified nursing. Per provider there is a chance that she may need LT ABX if she is found to have Osteo. SNF will be unable to accommodate her return until she is off IV ABX. Danica shares that she enjoys living at [facility] and identifies the staff and residents at the rehab as her family. A: 72 year old female admitted to [facility] on 08/13/23 for cellulitis, covid P: Danica is being closely monitored, on covid precautions currently. Once she is medically cleared, HUMERA will coordinate her return to [facility] via facility w/c van. She will follow up with facility providers and her discharge plan of care. CM will continue to follow.
[2023-08-18] MEDS: ceFAZolin 2 GM/50 ML BAG IVPB ×2 (12:21→20:03)
[2023-08-18] MEDS: Acetaminophen 325 MG TAB PO (15:28)
[2023-08-18] MEDS: Ibuprofen 600 MG TAB PO ×2 (15:28→21:52)
[2023-08-18] MEDS: Refresh PLUS Eye Drops 0.4ml OU (15:34)
[2023-08-18 15:56] VITALS: BP 157/78; PULSE 64; RESP 18; TEMP 37.1; O2SAT 98
--- NOTE | 2023-08-18 16:13 | W.PM.PROGNOT ---
Date of Service Date of service: 08/18/23 Time of Service: 16:37 Assessment and Plan Assessment and plan (1) Cellulitis of right lower extremity: Status: Acute Assessment and plan: Having failed outpatient therapy with clindamycin. Improving on vancomycin/cefepime day 6, wound cultures growing Strep Group C and MSSA, dc vanco and cefepime; change to Ancef 2 gm IV q8hr. arrange PICC or midline, will need at least 2 weeks of antibiotics but if images show osteomyelitis then may need 6 weeks. plain film xray of tib/fib did not show any jennifer erosions to suggest osteomyelitis; d/t her having had ORIF of her tibia and ankle w/ hardware, (done in 2019 for traumatic fracture to distal tibia), she probably can not have MRI scan. Depending on CT images, if evidence for osteomyelitis then I would consult ortho and I.D. (2) COVID-19: Status: Acute Assessment and plan: Patient is asymptomatic other than her myalgias which is chronic. No dyspnea and no hypoxemia or cough. She has completed her Remdesivir as of yesterday. (3) Chronic back pain: Status: Chronic Assessment and plan: Continue outpatien therapy; change her ibuprofen and tylenol to scheduled. add tramadol prn for pain Qualifiers: Back pain location: low back pain Back pain laterality: right Sciatica presence: unspecified whether sciatica present Qualified Code(s): M54.50 - Low back pain, unspecified; G89.29 - Other chronic pain (4) Ambulatory dysfunction: Status: Chronic Assessment and plan: Continue working with PT. Wheel chair dependent normally (5) H/O deep venous thrombosis: Status: Chronic Assessment and plan: prior to this admission. Continue home dose of apixaban (6) Discharge planning issues: Status: Acute Assessment and plan: Full code as discussed with the patient Continues to require hospitalization. Subjective Subjective Interval history since last seen: Patient's erythema and edema are improving although she still has significant pain in the right over tibia and around the calf as well as the foot. She says that it hurts to put weight on the foot. She is upset that her APAP and ibuprofen got changed to prn rather than scheduled. I told her that I will make them scheduled. Her blood cultures have remained negative but her wound culture is growing MSSA and Strep group C. Based on this I have changed her from cefepime and vancomycin to ancef 2 gm iv q 8h. She will probably need prolonged course of iv antibiotics given she failed outpatient oral therapy. Exam Narrative Exam Narrative: Danica is lying in be, she appears to be in pain. RLE still w/ some pinkness to the skin but the edema has definitely improved except the foot and ankle are slightly edematous, pedal pulses intact, the skin feels less warm to the touch Lungs: clear Heart: RRR Abdomen: soft, nontender, nondistended Objective Last Vital Signs Temp 37.1 C 08/18/23 15:56 Pulse 64 08/18/23 15:56 Resp 18 08/18/23 15:56 BP 157/78 H 08/18/23 15:56 Pulse Ox 98 08/18/23 15:56 Laboratory Results - last 24 hr 08/18/23 07:10 WBC 10.80 RBC 3.48 L Hgb 9.5 L Hct 30.6 L MCV 88 MCH 27.3 MCHC 31.0 L RDW 15.1 H Plt Count 416 H MPV 8.7 Immature Gran % 0.0 Neutrophils % 70.0 Band Neutrophils % 0 Lymphocytes % 10.0 Atypical Lymphs % 1 Monocytes % 12.0 Eosinophils % 5.0 Basophils % 0.0 Metamyelocytes % 1 Myelocytes % 1 Nucleated RBC % 0.0 Absolute Neutrophils 7.56 H Absolute Lymphocytes 1.19 L Absolute Monocytes 1.30 H Absolute Eosinophils 0.54 Absolute Basophils 0.00 RBC Morphology Normal Sodium 138 Potassium 3.9 Chloride 104 Carbon Dioxide 26.4 Anion Gap 7.6 BUN 24 H Creatinine 0.8 Est GFR (CKD-EPI 2020) 77.27 Glucose 103 Calcium 8.8 C-Reactive Protein 10.19 H Time Spent with Patient Time Spent with Patient: 35-49 minutes Time was spent: preparing to see the patient(eg.review tests), ordering medications,tests, procedures, referring, communicating with other health human services care specialist, indepentently interpreting results, counseling the patient and care coordination
--- NOTE | 2023-08-18 16:30 | IN_ITS ---
Date of service: 08/18/23 Time of Service: 16:30 PT Notes Visit Reasons: Cellulitis and Wound RLE Physical Therapy Inpatient Initial Evaluation Date: 08/18/2023 Referring Doctor: Myra Kemp MD PT Orders: PT CONSULT: Limited ability Precautions: Fall. AIRBORNE/DROPLET precautions in place for COVID-19. Wheelchair-bound for over 22 years. Patient Profile/Admitting Diagnosis: Danica is a 72-year-old female admitted for management of COVID-19 infection, cellulitis of right LE, wound of right knee, chronic back pain, ambulatory dysfunction and history of DVT. PMHX: All Active Problems (Updated 08/13/23 @ 18:36 by Myra Kemp MD) Discharge planning issues (Acute) H/O deep venous thrombosis (Chronic) Wound of right lower extremity (Acute) Cellulitis of right lower extremity (Acute) Sepsis (Acute) COVID-19 (Acute) GERD (gastroesophageal reflux disease) (Chronic) IBS (irritable bowel syndrome) (Chronic) Restless legs syndrome (RLS) (Acute) Chronic back pain (Chronic) Ambulatory dysfunction (Chronic) Obesity (BMI 30.0-34.9) (Acute) Cellulitis (Acute) Medical History Pulmonary embolism DVT (deep venous thrombosis) Breast cancer, right Surgical History S/P breast reconstruction, right S/P right mastectomy Social History/Home Situation: SNF resident. Able to squat transfer/side transfer from edge of bed to wheelchair with assist of 1 caregiver at the SNF. Main mobility is through use of B feet while on wheelchair, rarely uses wheels/handrims. Equipment Owned/DME: SNF resident Subjective: Agreeable to working with PT and trying to demonstrate her system with side/squat transfer but remains anxious about moving R LE at this time. Indicates that with the COVID, cellulitis, and her chronic back pain she will not be able to safely do it today. She wants to work with PT once her pain level is much controlled. Worried about the upcoming MRI of her leg to see if there is osteomyelitis in it. Verbalizes that she knows her exercises and is willing to do them with PT. Objective: General Observation: Supine in bed. Erythema to R leg. Mental Status: Alert and oriented as to person, place, time, and purpose. Able to pay attention, focus, and respond appropriately. Pain:7-8/10 in the R LE aggravated with movement Vital Signs: Closely monitored by nursing staff ROM: Right Upper Extremity: Shoulder Flexion WFL. Shoulder abduction WFL. Elbow flexion WFL. Wrist flexion WFL. Functional opening and closing of hand WFL. Left Upper Extremity: Shoulder Flexion WFL. Shoulder abduction WFL. Elbow flexion WFL. Wrist flexion WFL. Functional opening and closing of hand WFL. Right Lower Extremity: Refused by patient to be tested due to pain with movement Left Lower Extremity: Hip flexion up to 60 degrees. Hip abduction WFL. Knee flexion WFL. Ankle dorsiflexion WFL. Ankle plantarflexion WFL. Strength: Right Upper Extremity: Shoulder flexors 4-/5. Shoulder abductors 4-/5. Elbow flexors 4-/5. Elbow extensors 4-/5. Adz Worker strong. Left Upper Extremity: Shoulder flexors 4-/5. Shoulder abductors 4-/5. Elbow flexors 4-/5. Elbow extensors 4-/5. Adz Worker strong. Right Lower Extremity: Refused testing due to pain; Grossly 1 to 2-/5 Left Lower Extremity: Hip flexors 3-/5. Hip abductors 3-/5. Knee flexors 4-/5. Knee extensors 4-/5. Ankle dorsiflexors 4-/5. Ankle plantarflexors 4-/5. Bed Mobility/Transfers: Refused testing this afternoon due to fatiguefrom COVID, pain in R LE with movement, and chronic back pain Gait: Not applicable. Patient wheelchair-bound. Balance: Static Sitting: Unable to test Dynamic Sitting: Unable to test Static Standing: Not applicable Dynamic Standing: Not applicable Special Tests: Mobility Limitations Standardized Measure [facility] AM-PAC 6 clicks Basic Mobility Inpatient Short Form: Raw Score: 6 CMS Score: 100% deficit Informed Consent/Education: Patient was instructed in purpose of PT consult and plan of care. Agreeable to proceed with established PT POC to achieve personal goals. Highly anxiis about moving at this time. THERA EX: Patient demonstrated ability to perform exercises below with supervision of PT -Ankle knee to chest L LE only x 10 -Bed push ups with patient in hook lying, minimally elevating pelvis x 5 -Hip abduction/adduction L LE only x 5 -SLR L side only x 5 ASSESSMENT: Highly anxious about getting out of bed due to pain exacerbation with movement, fatigue, and chronic back pain. Gradual and slow progression will be needed with this patient. Ensure that she is pre-medicated for pain. Will plan on putting her 3x/week Mondays through Fridays to allow for adequate rests in between PT session working on regaining her prior level transfer status. Patient presents with clinical signs and symptoms consistent with current/admitting diagnoses that have resulted to mobility limitations, gait instability, generalized weakness, and overall ADL decline as demonstrated by the following impairment level findings: 1. Decreased strength to B UE/LE major muscle groups 2. Impaired sitting/standing balance 3. Impaired activity tolerance 4. Limitation of joint range of motion in R LE 5. High anxiety about getting out of bed due tohigh pain level Impairments are contributing to the following functional limitations: 1. Decline in bed mobility skills 2. Decline in transfer skills 3. Increased risk for falls 4. Increased risk for skin breakdown Patient is assessed as a 19228 high complexity based on the following: History: 72-year-old female with past medical history as indicated above Examination: Demonstrable impairment in strength, balance, and mobility level with underlying impairments and functional limitations as exhibited above as well as deficit score of 100% utilizing the [facility] Mobility Inpatient Short Form Presentation: Evolving Decision Makin moderate complexity Goals: Goals X1 week 1. Supine-Sit independent 2. Sit-Supine independent 5. Bed-Chair independent with side/squat transfer with minimal report of pain in R LE and back 6. Chair-Bed independent with side/squat transfer with minimal report of pain in R LE and back Plan of Care/Treatment Plan: 1x/day, 3 days/week x 2 weeks, Mondays through Fridays only. Plan of care has been reviewed with the COMMERCIAL ESCROW ASSISTANT providing the service under Physical Therapy direction. Initiate Physical Therapy intervention for pain management as needed, strengthening, bed mobility, transfers, and use of assistive device. DISCHARGE RECOMMENDATIONS: [] Home with no services [] [] Home with services [specify] [] Home with outpatient PT [] [] SNF for continued rehabilitation [] [] Group Home Care [] [] SNF versus LTC based on ability to participate and progress [] [X] Return to SNF when medically cleared TREATMENT CODE/TIME: 41133 x 31 minutes for 1 unit beginning at 16:30 PM. Thank you for the opportunity to participate in the care of this patient. Marci Saul PT, DPT, CLT [facility] [place], [place]
[2023-08-18] MEDS: traMADol 50 MG TAB PO (20:02)
[2023-08-18] MEDS: Ondansetron O.D.T. 4 MG TABEF PO (21:07)
[2023-08-18] MEDS: Acetaminophen 500 MG TAB 1000 MG PO (21:52)
[2023-08-18] MEDS: Melatonin 3 MG TAB PO (21:52)
[2023-08-18] MEDS: Topiramate 50 MG TAB PO (21:52)
[2023-08-18] MEDS: rOPINIRole 0.5 MG TAB 0.25 MG PO (21:53)
--- NOTE | 2023-08-19 | DI.CT_ITS ---
Exam(s) CT LOWER EXTREMITY RT W EXAM: CT LOWER EXTREMITY RT W CLINICAL HISTORY: cellulitis, r/o osteomyelitis, r/o abscess. TECHNIQUE: Imaging Protocol: Axial computed tomography images with coronal and sagittal reformatted images were created and reviewed. CONTRAST MATERIAL: Intravenous: Omnipaque 350 Contrast volume:100 ml Contrast route:IV - COMPARISON: CR XR TIB/FIB RT from 08/17/2023 FINDINGS: Bones: There is no evidence of fracture or dislocation. Bones appear osteoporotic. Hardware again noted in the distal tibia and fibula which creates artifact. No evidence of osteomyelitis. No lytic or sclerotic lesions are identified. Joints: Degenerative changes present at the knee. Soft Tissues: Lower leg edema seen greater laterally. No drainable collection or abscess. Diffuse muscular atrophy. Arteries patent without significant stenosis. IMPRESSION: Soft tissue swelling evidence of drainable abscess or fluid collection. No evidence of osteomyelitis . RADIATION DOSE DELIVERED: Total DLP DATA REPOSITORY: All CT scans at this facility are submitted to the National Radiology Data Registry (NRDR) Dose Index Registry (DIR) with the [employer] (ACR). RADIATION OPTIMIZATION: All CT scans at this facility use at least one of these dose optimization te chniques: automated exposure control; mA and/or kV adjustment per patient size (includes targeted exa ms where dose is matched to clinical indication); or iterative reconstruction.
[2023-08-19 00:21] VITALS: BP 130/69; PULSE 65; RESP 18; TEMP 36.6; O2SAT 91
[2023-08-19] MEDS: ceFAZolin 2 GM/50 ML BAG IVPB ×3 (05:13→20:12)
[2023-08-19] MEDS: Acetaminophen 500 MG TAB 1000 MG PO ×3 (05:13→21:32)
[2023-08-19] MEDS: Benzonatate 100 MG CAP PO ×3 (05:14→21:32)
[2023-08-19] MEDS: Ibuprofen 600 MG TAB PO ×3 (05:14→21:32)
[2023-08-19] MEDS: Levothyroxine 125 MCG TAB PO (05:14)
[2023-08-19 07:40] LABS: Abs Immature Grans 0.51 10^3/uL (0.0-0.06); Absolute Monocyte Count 0.85 10^3/uL (0.1-0.8); Basophils % 0.6; HCT 30.7 % (36.0-46.0); HGB 9.7 g/dL (11.2-15.7); Immature Grans % 4.1; Lymphocytes % 14.4; MCH 27.6 pg (27.0-33.0); MCHC 31.6 % (32.0-36.0); MCV 88 fL (80-95); MPV 8.5 fL (8.0-11.0); Monocytes % 6.8; Neutrophils % 71.1; Platelet Count 459 10^3/uL (130-400); RBC 3.51 10^6/uL (3.93-5.22); RDW 15.1 % (11.7-14.6); RDW-SD 48.7 fL; WBC 12.52 10^3/uL (4.4-10.8)
[2023-08-19 07:48] LABS: Absolute Basophil Count 0.08 10^3/uL (0.0-0.2); Absolute Eosinophil Count 0.38 10^3/uL (0.0-0.7)
[2023-08-19 08:01] LABS: Diff Comment Diff Reviewed; RBC Morphology Normal
[2023-08-19 08:08] VITALS: BP 117/66; PULSE 57; RESP 18; TEMP 36.5; O2SAT 96
[2023-08-19 08:09] LABS: Anion Gap 7.1 mmol/L (3-11); BUN 30 mg/dL (7-18); C-Reactive Protein 6.55 mg/dL (0.0-0.3); CO2 26.9 mmol/L (21.0-32.0); CREATININE 1.2 mg/dL (0.55-1.02); Calcium 9.1 mg/dL (8.5-10.1); Chloride 102 mmol/L (98-107); Glucose 108 mg/dL (74-106); Potassium 3.7 mmol/L (3.5-5.1); Sodium 136 mmol/L (136-145)
[2023-08-19 08:20] LABS: Procalcitonin 0.2 ng/mL
[2023-08-19] MEDS: Clotrimazole 1% 15 GM TUBE TP (08:44)
[2023-08-19] MEDS: Lisinopril 20 MG TAB 40 MG PO (08:44)
[2023-08-19] MEDS: Diclofenac 1% Gel 100 GM TUBE TP ×2 (08:44→16:45)
[2023-08-19] MEDS: Fluticasone NASAL SPRAY 16 GM BTL NS (08:45)
[2023-08-19] MEDS: Ascorbic Acid 500 MG TAB PO ×2 (08:47→20:11)
[2023-08-19] MEDS: Potassium Chloride 20 MEQ TABCR 40 MEQ PO (08:47)
[2023-08-19] MEDS: Cholecalciferol (Vitamin D3) 1,000 UNIT TAB 2000 UNITS PO (08:47)
[2023-08-19] MEDS: Topiramate 25 MG TAB PO (08:47)
[2023-08-19] MEDS: Metoprolol CR 50 MG TABCR PO (08:47)
[2023-08-19] MEDS: Furosemide 40 MG TAB PO ×2 (08:47→16:44)
[2023-08-19] MEDS: clonazePAM 0.5 MG TAB PO ×3 (08:47→20:11)
[2023-08-19] MEDS: Sertraline 25 MG TAB 75 MG PO (08:47)
[2023-08-19] MEDS: Apixaban 5 MG TAB PO ×2 (08:47→20:11)
[2023-08-19] MEDS: Pantoprazole 20 MG TABCR PO ×2 (08:47→20:11)
[2023-08-19] MEDS: Sertraline 100 MG TAB PO (08:48)
[2023-08-19] MEDS: Budesonide/Formoterol 160/4.5 6 GM 60 PUFF INH IH ×2 (08:59→19:18)
[2023-08-19] MEDS: Ipratropium/Albuterol 4 GM 120 PUFF INH IH ×4 (09:00→19:22)
--- NOTE | 2023-08-19 09:24 | PDOC.CMPRO ---
Date of service: 08/19/23 Time of Service: 09:24 Care Management Progress Note Progress Note Text Progress Note Text: S/O: CM spoke with Danica via phone briefly, however she advises that she is busy and hung up. She has covid and remains on precautions. Lower Extremity CT was done today, results pending. She has RLE cellulites which is being treated with IV ancef. Per provider, she may need a course of LT ABX since she has failed outpatient oral therapy. She may need to transition to SWB status if reSNF will be unable to accommodate her return until she is off IV ABX. A: 72 year old female admitted to [facility] on 08/13/23 for cellulitis, covid P: Danica is being closely monitored, on covid precautions currently. Once she is medically cleared, CM will coordinate her return to [facility] via facility w/c van. She will follow up with facility providers and her discharge plan of care. CM will continue to follow.
[2023-08-19] MEDS: Refresh PLUS Eye Drops 0.4ml OU ×2 (10:43→21:31)
[2023-08-19] MEDS: Normal Saline Flush 10 ML SYR IVP ×2 (10:44→20:10)
[2023-08-19] MEDS: Normal Saline - Diluent 50 ML VIAL IJ (11:26)
[2023-08-19] MEDS: Omnipaque 350 MG/ML 100 ML BTL IJ (11:28)
[2023-08-19] MEDS: traMADol 50 MG TAB PO (12:04)
[2023-08-19] MEDS: Ondansetron O.D.T. 4 MG TABEF PO (12:04)
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
[2023-08-19 15:42] VITALS: BP 112/67; PULSE 65; RESP 18; TEMP 36.5; O2SAT 93
--- NOTE | 2023-08-19 17:15 | PGE_ITS ---
Date of Service Date of service: 08/19/23 Time of Service: 17:15 Assessment and Plan Assessment and plan (1) Cellulitis of right lower extremity: Status: Acute Assessment and plan: continue Ancef 2 gm iv q8hr while hospitalized but will switch to Keflex 500 mg po qid x 5 more days. (2) COVID-19: Status: Acute Assessment and plan: patient has completed her Remdesivir treatment and has no dyspnea or cough. lungs remain clear (3) Chronic back pain: Status: Chronic Assessment and plan: Continue outpatien therapy; change her ibuprofen and tylenol to scheduled. add tramadol prn for pain. Patient requesting zofran to be given w/ her tramadol as the tramadol makes her nauseated but the tramadol helps her pain Qualifiers: Back pain location: low back pain Back pain laterality: right Sciatica presence: unspecified whether sciatica present Qualified Code(s): M54.50 - Low back pain, unspecified; G89.29 - Other chronic pain (4) Ambulatory dysfunction: Status: Chronic Assessment and plan: Continue working with PT. Wheel chair dependent normally (5) H/O deep venous thrombosis: Status: Chronic Assessment and plan: prior to this admission. Continue home dose of apixaban (6) Discharge planning issues: Status: Acute Assessment and plan: Full code as discussed with the patient Continues to require hospitalization. Subjective Subjective Interval history since last seen: Patient still complains of pain down her right calf and foot. However pain is less intense. I told her that the good news is the wound cultures are sensitive to cephalosporins and she can be switched to oral antibiotics which she can take upon discharge. I have switched her to Ancef from Vancomycin and cefepime. Upon discharge she can go on 10 to 14 days of Keflex. I also told her the good news that her CT of her of her right lower leg did not show any abscess nor any evidence for osteomyelitis, so she does not need ongoing parenteral antibiotics but can be switched to oral antibiotics. Exam Narrative Exam Narrative: RLE shows much improvement in the recession of the area of the erythema. Now confined to lower 1/3 of tibia and has become more diffused and now a faint salmon coloration. Leg edema has resolved. Objective Last Vital Signs Temp 36.5 C 08/19/23 15:42 Pulse 65 10/26/23 15:42 Resp 18 08/19/23 15:42 BP 112/67 08/19/23 15:42 Pulse Ox 93 08/19/23 15:42 Laboratory Results - last 24 hr 08/19/23 07:30 WBC 12.52 H RBC 3.51 L Hgb 9.7 L Hct 30.7 L MCV 88 MCH 27.6 MCHC 31.6 L RDW 15.1 H Plt Count 459 H MPV 8.5 Immature Gran % 4.1 Neutrophils % 71.1 Lymphocytes % 14.4 Monocytes % 6.8 Eosinophils % 3.0 Basophils % 0.6 Nucleated RBC % 0.0 Absolute Neutrophils 8.90 H Absolute Lymphocytes 1.80 Absolute Monocytes 0.85 H Absolute Eosinophils 0.38 Absolute Basophils 0.08 RBC Morphology Normal Sodium 136 Potassium 3.7 Chloride 102 Carbon Dioxide 26.9 Anion Gap 7.1 BUN 30 H Creatinine 1.2 H Est GFR (CKD-EPI 2020) 47.50 Glucose 108 H Calcium 9.1 C-Reactive Protein 6.55 H Procalcitonin 0.2 Reviewed Pertinent PMH: Yes Objective Narrative Objective Narrative: labs show her to becoming mildly prerenal azotemia. I will dc her diuretics and potassium supplements. CRP and procalcitonin are improving but not resolved. Time Spent with Patient Time Spent with Patient: 25-34 minutes Time was spent: preparing to see the patient(eg.review tests), ordering medications,tests, procedures, referring, communicating with other health foster care therapist, indepentently interpreting results, counseling the patient and care coordination
--- NOTE | 2023-08-19 17:30 | PT.INDS ---
PT Notes Visit Reasons: Cellulitis and Wound RLE Physical Therapy Discharge Summary Date: 08/19/2023 Dates of Service: 08/18/2023 through 08/19/2023 This is a clinical summary of care provided for the duration of dates listed above. No charge was made in the completion of this documentation. Referring Doctor: Myra Kemp MD PT Orders: PT CONSULT: Limited ability Precautions: Fall. AIRBORNE/DROPLET precautions in place for COVID-19. Wheelchair-bound for over 22 years. Patient Profile/Admitting Diagnosis: Danica is a 72-year-old female admitted for management of COVID-19 infection, cellulitis of right LE, wound of right knee, chronic back pain, ambulatory dysfunction and history of DVT. PMHX: All Active Problems (Updated 08/13/23 @ 18:36 by Myra Kemp MD) Discharge planning issues (Acute) H/O deep venous thrombosis (Chronic) Wound of right lower extremity (Acute) Cellulitis of right lower extremity (Acute) Sepsis (Acute) COVID-19 (Acute) GERD (gastroesophageal reflux disease) (Chronic) IBS (irritable bowel syndrome) (Chronic) Restless legs syndrome (RLS) (Acute) Chronic back pain (Chronic) Ambulatory dysfunction (Chronic) Obesity (BMI 30.0-34.9) (Acute) Cellulitis (Acute) Medical History Pulmonary embolism DVT (deep venous thrombosis) Breast cancer, right Surgical History S/P breast reconstruction, right S/P right mastectomy Social History/Home Situation: SNF resident. Able to squat transfer/side transfer from edge of bed to wheelchair with assist of 1 caregiver at the SNF. Main mobility is through use of B feet while on wheelchair, rarely uses wheels/handrims. Equipment Owned/DME: SNF resident Subjective: NT. See most recent LOCKSTITCH LINING SETTER notes. Objective: General Observation: NT. See most recent LOCKSTITCH LINING SETTER notes. Mental Status: NT. See most recent LOCKSTITCH LINING SETTER notes. Pain:NT. See most recent LOCKSTITCH LINING SETTER notes. Vital Signs: NT. See most recent LOCKSTITCH LINING SETTER notes. ROM: Right Upper Extremity: Shoulder Flexion WFL. Shoulder abduction WFL. Elbow flexion WFL. Wrist flexion WFL. Functional opening and closing of hand WFL. Left Upper Extremity: Shoulder Flexion WFL. Shoulder abduction WFL. Elbow flexion WFL. Wrist flexion WFL. Functional opening and closing of hand WFL. Right Lower Extremity: Refused by patient to be tested due to pain with movement Left Lower Extremity: Hip flexion up to 60 degrees. Hip abduction WFL. Knee flexion WFL. Ankle dorsiflexion WFL. Ankle plantarflexion WFL. Strength: Right Upper Extremity: Shoulder flexors 4-/5. Shoulder abductors 4-/5. Elbow flexors 4-/5. Elbow extensors 4-/5. Spring Assembler Supervisor strong. Left Upper Extremity: Shoulder flexors 4-/5. Shoulder abductors 4-/5. Elbow flexors 4-/5. Elbow extensors 4-/5. Spring Assembler Supervisor strong. Right Lower Extremity: Refused testing due to pain; Grossly 1 to 2-/5 Left Lower Extremity: Hip flexors 3-/5. Hip abductors 3-/5. Knee flexors 4-/5. Knee extensors 4-/5. Ankle dorsiflexors 4-/5. Ankle plantarflexors 4-/5. Bed Mobility/Transfers: Refused testing this afternoon due to fatigue from COVID, pain in R LE with movement, and chronic back pain Gait: Not applicable. Patient wheelchair-bound. Balance: Static Sitting: Unable to test Dynamic Sitting: Unable to test Static Standing: Not applicable Dynamic Standing: Not applicable Informed Consent/Education: Patient was instructed in purpose of PT consult and plan of care. Agreeable to proceed with established PT POC to achieve personal goals. Highly anxiis about moving at this time. THERA EX: Patient demonstrated ability to perform exercises below with supervision of PT -Ankle knee to chest L LE only x 10 -Bed push ups with patient in hook lying, minimally elevating pelvis x 5 -Hip abduction/adduction L LE only x 5 -SLR L side only x 5 ASSESSMENT: Highly anxious about getting out of bed due to pain exacerbation with movement, fatigue, and chronic back pain. Gradual and slow progression will be needed with this patient. Ensure that she is pre-medicated for pain. Will plan on putting her 3x/week Mondays through Fridays to allow for adequate rests in between PT session working on regaining her prior level transfer status. Patient presents with clinical signs and symptoms consistent with current/admitting diagnoses that have resulted to mobility limitations, gait instability, generalized weakness, and overall ADL decline as demonstrated by the following impairment level findings: 1. Decreased strength to B UE/LE major muscle groups 2. Impaired sitting/standing balance 3. Impaired activity tolerance 4. Limitation of joint range of motion in R LE 5. High anxiety about getting out of bed due tohigh pain level Impairments are contributing to the following functional limitations: 1. Decline in bed mobility skills 2. Decline in transfer skills 3. Increased risk for falls 4. Increased risk for skin breakdown Goals: Goals X1 week 1. Supine-Sit independent NOT MET 2. Sit-Supine independent NOT MET 5. Bed-Chair independent with side/squat transfer with minimal report of pain in R LE and back NOT MET 6. Chair-Bed independent with side/squat transfer with minimal report of pain in R LE and back NOT MET DISCHARGE RECOMMENDATIONS: [] Home with no services [] [] Home with services [specify] [] Home with outpatient PT [] [] SNF for continued rehabilitation [] [] [facility] [] [] SNF versus LTC based on ability to participate and progress [] [X] Return to SNF when medically cleared TREATMENT CODE/TIME: [facility] Thank you for the opportunity to participate in the care of this patient. Marci Saul PT, DPT, CLT [facility] [place], [place]
[2023-08-19] MEDS: Topiramate 50 MG TAB PO (21:31)
[2023-08-19] MEDS: rOPINIRole 0.5 MG TAB 0.25 MG PO (21:31)
[2023-08-19] MEDS: Melatonin 3 MG TAB PO (21:31)
[2023-08-19 23:56] VITALS: BP 105/66; PULSE 59; RESP 18; TEMP 36.1; O2SAT 94
[2023-08-20] MEDS: ceFAZolin 2 GM/50 ML BAG IVPB ×2 (04:25→12:26)
[2023-08-20] MEDS: Normal Saline Flush 10 ML SYR IVP (04:25)
[2023-08-20] MEDS: Levothyroxine 125 MCG TAB PO (05:52)
[2023-08-20] MEDS: Ibuprofen 600 MG TAB PO ×2 (05:52→13:41)
[2023-08-20] MEDS: Acetaminophen 500 MG TAB 1000 MG PO ×2 (05:52→13:40)
[2023-08-20 06:55] LABS: Abs Immature Grans 0.42 10^3/uL (0.0-0.06); Absolute Basophil Count 0.06 10^3/uL (0.0-0.2); Absolute Lymphocyte Count 1.71 10^3/uL (1.2-3.4); Absolute Monocyte Count 0.76 10^3/uL (0.1-0.8); Absolute Neutrophil Count 6.58 10^3/uL (1.2-6.7); Basophils % 0.6; HCT 30.2 % (36.0-46.0); HGB 9.1 g/dL (11.2-15.7); Immature Grans % 4.2; Lymphocytes % 17.2; MCH 26.6 pg (27.0-33.0); MCHC 30.1 % (32.0-36.0); MCV 88 fL (80-95); MPV 8.5 fL (8.0-11.0); Monocytes % 7.7; Neutrophils % 66.3; Platelet Count 481 10^3/uL (130-400); RBC 3.42 10^6/uL (3.93-5.22); RDW 15.2 % (11.7-14.6); WBC 9.93 10^3/uL (4.4-10.8)
[2023-08-20 07:05] LABS: Anion Gap 9.1 mmol/L (3-11); BUN 27 mg/dL (7-18); CO2 27.9 mmol/L (21.0-32.0); CREATININE 1.2 mg/dL (0.55-1.02); Chloride 101 mmol/L (98-107); Glucose 109 mg/dL (74-106); Potassium 4.2 mmol/L (3.5-5.1); Sodium 138 mmol/L (136-145)
[2023-08-20] MEDS: Metoprolol CR 50 MG TABCR PO (08:28)
[2023-08-20] MEDS: Cholecalciferol (Vitamin D3) 1,000 UNIT TAB 2000 UNITS PO (08:28)
[2023-08-20] MEDS: Topiramate 25 MG TAB PO (08:28)
[2023-08-20] MEDS: Apixaban 5 MG TAB PO (08:29)
[2023-08-20] MEDS: Lisinopril 20 MG TAB 40 MG PO (08:29)
[2023-08-20] MEDS: Sertraline 25 MG TAB 75 MG PO (08:29)
[2023-08-20] MEDS: clonazePAM 0.5 MG TAB PO ×2 (08:29→13:41)
[2023-08-20] MEDS: Sertraline 100 MG TAB PO (08:29)
[2023-08-20] MEDS: Pantoprazole 20 MG TABCR PO (08:30)
[2023-08-20 08:33] VITALS: BP 125/70; PULSE 65; RESP 16; TEMP 36.6; O2SAT 95
[2023-08-20] MEDS: Fluticasone NASAL SPRAY 16 GM BTL NS (08:35)
[2023-08-20] MEDS: Clotrimazole 1% 15 GM TUBE TP (08:35)
[2023-08-20] MEDS: Diclofenac 1% Gel 100 GM TUBE TP ×2 (08:35→13:00)
[2023-08-20] MEDS: Ascorbic Acid 500 MG TAB PO (08:36)
[2023-08-20] MEDS: Ipratropium/Albuterol 4 GM 120 PUFF INH IH ×2 (08:38→11:39)
[2023-08-20] MEDS: Budesonide/Formoterol 160/4.5 6 GM 60 PUFF INH IH (08:38)
[2023-08-20] MEDS: Refresh PLUS Eye Drops 0.4ml OU (08:47)
[2023-08-20] MEDS: Benzonatate 100 MG CAP PO (08:47)
--- NOTE | 2023-08-20 12:59 | PDOC.CMDIS ---
Date of service: 08/20/23 Time of Service: 12:59 LACE Index Scoring Tool Questions: Length of Stay (in days): 7 - 13 Was the patient admitted via the E.D.?: Yes E.D. Visits: 1 Answers: Total Score: 9 Risk of Readmission: Low Risk Care Management Discharge Plan Reason for Hospitalization: Cellulitis and wound RLE Discharge Plan: Danica is discharged back to [facility] where she resides for [facility]. She is transported via facility w/c van. Danica will follow up with facility/community providers and her discharge plan of care as instructed. Patient/Family Education Needs: Review discharge instructions, limitations, medications and plan to follow up with community/facility providers. Discuss ask me three. Services Needed at Discharge: Assisted Facility ([facility])
[2023-08-20] MEDS: Bacitracin 1 PACKET TP (13:00)
--- NOTE | 2023-08-20 13:19 | W.PM.DS.N ---
Date of service: 08/20/23 Time of Service: 13:19 DS: Diagnosis Discharge Diagnosis (1) Cellulitis of right lower extremity: Status: Acute (2) COVID-19: Status: Acute (3) Chronic back pain: Status: Chronic (4) Ambulatory dysfunction: Status: Chronic (5) H/O deep venous thrombosis: Status: Chronic (6) Discharge planning issues: Status: Acute Discharge Plan Disposition Patient Disposition: Assisted Facility(SNF) Condition: Improving Discharge Details Reason For Visit: Cellulitis and Wound RLE Admit Date/Time: 08/13/23 14:08 Admit Provider: Myra Kemp Attending Provider: Myra Kemp Hospital Course Hospital Course: 72-year-old female with a past medical history of right breast cancer status post mastectomy and reconstruction, hypertension, DVT/PE, IBS, chronic back pain due to DJD, obesity was transferred from [facility] with complaints of fever chills right leg pain and swelling. Evaluation showed that she had cellulitis of the right lower leg.Work-up included plain film x-rays of the tibia and fibula which showed no evidence of osteomyelitis. Venous duplex scan of her lower extremity showed no DVT. CT of the right lower extremity was consistent with soft tissue swelling with evidence of cellulitis but no evidence of abscess or osteomyelitis. Superficial wound with evidence of breakdown of skin anterior tibia was cultured through group C streptococcus as well as MSSA. Blood cultures showed no growth. Patient had failed outpatient treatment with clindamycin. Patient was given IV clindamycin by the emergency department. However the admitting hospitalist started the patient on vancomycin and cefepime. Patient had a lot of pain which required adjustment of pain medications including scheduled dose ibuprofen and Tylenol and addition of tramadol. Admission white count was elevated at 14,000 CRP was greater than 25 at the time of discharge her CRP had come down to 6.5 and her WBCs have come down to normal at 99. Patient was found to be anemic with a hemoglobin of 10.4 g which fluctuated throughout her hospital course but generally was around 9 g. She had no signs of active bleeding. Anemia work-up showed that she had an anemia of chronic disease with low total serum iron level 21 but an normal ferritin of 115 and a low TIBC of 241. Procalcitonin level on admission was elevated 3 at the time of discharge and come down to 0.2. She was found to be vitamin D deficient at 24.8. She was started on vitamin D supplementation. On admission her COVID screen was positive and she was treated with remdesivir 5 days. Her blood cultures came back no growth, wound culture showed MSSA strep screen see she was transitioned over to IV Ancef. She will be discharged on 10-day course of Keflex 500 mg 4 times daily. To assist with her leg edema patient was placed on IV Lasix for couple of days at the time of discharge she was mildly prerenal with a BUN of 27 creatinine 1.2. Diuretics have since been stopped. Condition on discharge is markedly improved with marked decrease in the erythema in her leg which is nearly resolved. Edema has dissipated. Home Meds and New Rx's Prescriptions: New cephalexin 500 mg capsule 500 mg PO QID 10 Days Qty: 40 0RF penciclovir 1 % Cream 1 applic topical Q2H WHILE AWAKE 7 Days Qty: 0 0RF lidocaine 5 % Adhesive Patch,Medicated 1 patch topical Q24H Qty: 0 0RF cholecalciferol (vitamin D3) 25 mcg (1,000 unit) Tablet 25 mcg PO DAILY Qty: 0 0RF polyethylene glycol 3350 17 gram Powder In Packet 17 g PO DAILY PRN PRN (Reason: Constipation) Qty: 0 0RF tramadol 50 mg Tablet 50 mg PO Q4H PRN PRN5 Days Qty: 25 0RF Continued ondansetron 4 mg tablet,disintegrating 4 mg PO Q4H PRN PRN (Reason: nausea and vomiting) topiramate [Topamax] 50 mg tablet 25 mg PO DAILY sertraline 25 mg tablet 175 mg PO DAILY Lubricant Eye (PG-PEG 400) 0.4-0.3 % drops 2 drp ophthalmic (eye) QID PRN Patient Comments: 2 drops Bilat eye 4x/day PRN benzonatate 100 mg capsule 100 mg PO Q6H PRN topiramate [Topamax] 50 mg tablet 50 mg PO QHS potassium chloride [K-Tab] 20 mEq tablet extended release 20 meq PO DAILY hydrocortisone [Preparation H Hydrocortisone] 1 % cream 1 applic topical BID PRN pantoprazole 20 mg tablet,delayed release (DR/EC) 20 mg PO BID ropinirole 0.25 mg tablet 0.25 mg PO QHS calcium carbonate 550 mg tablet,chewable 1,100 mg PO DAILY PRN Deep Sea Nasal 0.65 % aerosol,spray 2 spray intranasal BID PRN clonazepam 0.5 mg tablet 0.5 mg PO TID clotrimazole [Antifungal (clotrimazole)] 1 % cream 1 applic topical QAM AND QPM diphenhydramine HCl [Allergy Medication] 25 mg capsule 25 mg PO Q8H PRN diclofenac sodium 1 % gel 4 g topical Q12H PRN PRN (Reason: pain) Rx Instructions: apply to single knee, ankle, foot; for foot includes sole/toes/top of foot bisacodyl [Gentle Laxative (bisacodyl)] 10 mg suppository 10 mg NH DAILY PRN Eliquis 5 mg tablet 5 mg PO BID fluticasone propionate [Flonase Allergy Relief] 50 mcg/actuation spray,suspension 1 spray intranasal DAILY Rx Instructions: administer into each nostril lactulose [Enulose] 10 gram/15 mL solution 15 ml PO DAILY PRN ibuprofen [IBU] 600 mg tablet 600 mg PO Q8H PRN PRN levothyroxine 125 mcg capsule 125 mcg PO DAILY lisinopril [Zestril] 40 mg tablet 40 mg PO HS loperamide [Anti-Diarrheal (loperamide)] 2 mg tablet 4 mg PO Q8H metoprolol succinate 50 mg capsule,sprinkle,ER 24hr 50 mg PO DAILY magnesium hydroxide 400 mg/5 mL suspension 5 ml PO DAILY PRN acetaminophen 500 mg tablet 1,000 mg PO TID fluticasone propion-salmeterol [Advair Diskus] 500-50 mcg/dose blister with device 1 inh inhalation BID Afrin (oxymetazoline) 0.05 % mist 2 spray intranasal Q12H PRN (Reason: nose bleeds) albuterol 90 mcg/actuation aerosol 108 mcg inhalation Q4H PRN PRN (Reason: shortness of breath or wheezing) alendronate 70 mg tablet 70 mg PO QWEEK Rx Instructions: every Wednesday calcium carbonate-vitamin D3 [Calcium 500 + D] 500 mg-10 mcg (400 unit) tablet 1 tab PO BID Eucerin Skin Calming Cream 1 applic topical Q12H PRN PRN (Reason: dry skin) guaifenesin [Cough Syrup] 100 mg/5 mL liquid 200 mg PO Q6H PRN alum-mag hydroxide-simeth 400-400-40 mg/5 mL suspension 10 ml PO Q6H PRN Zinc Oxide Diaper Cream 1-10 % cream 1 applic topical Q2H PRN PRN (Reason: rectal discomfort) triamcinolone acetonide 0.1 % cream 1 applic topical HS Discontinued amlodipine 5 mg tablet 5 mg PO DAILY clindamycin HCl [Cleocin HCl] 300 mg capsule 300 mg PO Q6H Rx Instructions: until 08/18/23 Discharge Instructions Instructions: Cellulitis (DC) Stand Alone Forms: Nursing Discharge Form Activity:: Activity as Tolerated Equipment/Supplies:: No Equipment Needed Diet:: Low Sodium Discharge Orders Discharge Orders: Discharge Order (Routine); Ordered 08/20/23 Ordered By: Pablo Parr DS: Summary Time Spent with Patient providing and/or coordinating discharge services: Less than 30 minutes Specific discharge activities: Interview/exam of patient; review of discharge instructions, completion of prescriptions/discharge instructions; discussion w/ nursing and CM; documentation of hospital visit Status at Discharge Functional status at discharge: wheelchair bound Overall status at discharge: patient is progressing back to baseline Mental Status: mental status grossly normal Speech and Movement: speech and movement normal Mood: congruent mood Affect: normal affect Exam Narrative Exam Narrative: Patient says that she did not sleep well last night but her pain is improved. Right lower leg edema has resolved. erythema is nearly gone, just some faint pink/salmon coloration to the lower 1/3, she is not nearly as tender, I am able to move her leg w/out causing her pain. Pedal pulses are strong Psych Mental Status: mental status grossly normal Speech and Movement: speech and movement normal Mood: congruent mood Affect: normal affect DS: Data Vitals/I&O Vitals and I&O: Vital Signs Temperature 36.6 C 08/20/23 08:33 Temperature Source Tympanic 08/20/23 08:33 Pulse 65 08/20/23 08:33 Pulse Rhythm Regular 08/20/23 09:15 Respiratory Rate 16 08/20/23 08:33 Respiratory Effort Normal, Non-Labored 08/20/23 09:15 Respiratory Depth Normal 08/20/23 09:15 Respiratory Pattern Normal 08/20/23 09:15 Blood Pressure 125/70 08/20/23 08:33 Blood Pressure Mean 71 08/13/23 15:01 Blood Pressure Position Supine 08/13/23 09:43 Pulse Oximetry 95 08/20/23 08:33 Oxygen Delivery Method Room Air 08/20/23 08:33 Oxygen Flow Rate 0 08/20/23 08:33 Pain Level 0 08/19/23 23:56 Comment c/o lower middle back pain 08/19/23 00:21 Intake & Output 08/19/23 08/20/23 08/20/23 23:59 11:59 23:59 Intake Total 100 / 150 350 / 350 Output Total 2300 / 3300 Balance -2200 / -3150 350 / 350 Intake: IV 100 / 150 50 / 50 Oral 300 / 300 Output: Urine 2300 / 3300 Other: Urine Color Yellow Urine Appearance Clear Clear Urine Odor Normal Comment pure wick Data Completed and Pending Labs on day of discharge: Labs from last 24 hours 08/20/23 06:35 WBC 9.93 RBC 3.42 L Hgb 9.1 L Hct 30.2 L MCV 88 MCH 26.6 L MCHC 30.1 L RDW 15.2 H Plt Count 481 H MPV 8.5 Immature Gran % 4.2 Neutrophils % 66.3 Lymphocytes % 17.2 Monocytes % 7.7 Eosinophils % 4.0 Basophils % 0.6 Nucleated RBC % 0.0 Absolute Neutrophils 6.58 Absolute Lymphocytes 1.71 Absolute Monocytes 0.76 Absolute Eosinophils 0.40 Absolute Basophils 0.06 Sodium 138 Potassium 4.2 Chloride 101 Carbon Dioxide 27.9 Anion Gap 9.1 BUN 27 H Creatinine 1.2 H Est GFR (CKD-EPI 2020) 47.50 Glucose 109 H Calcium 9.0 PFSH All Active Problems Discharge planning issues (Acute) H/O deep venous thrombosis (Chronic) Wound of right lower extremity (Acute) Cellulitis of right lower extremity (Acute) Sepsis (Acute) COVID-19 (Acute) GERD (gastroesophageal reflux disease) (Chronic) IBS (irritable bowel syndrome) (Chronic) Restless legs syndrome (RLS) (Acute) Chronic back pain (Chronic) Ambulatory dysfunction (Chronic) Obesity (BMI 30.0-34.9) (Acute) Cellulitis (Acute) Medical History Pulmonary embolism DVT (deep venous thrombosis) Breast cancer, right Surgical History S/P breast reconstruction, right S/P right mastectomy Family History Brother Diabetes Sister Diabetes Sister Hypertension Sister Hypertension Melanoma Other Adopted Social History Smoking/Tobacco Use Status: Never Smoking risk assessment performed?: Yes Alcohol Intake: current Alcohol Intake frequency: holidays/special occasions only Drug use: Never Adopted: Yes Housing: fdc Do you feel safe at home: Yes Additional Social history: Time Spent with Patient Time Spent with Patient: <45 minutes Time was spent: preparing to see the patient(eg.review tests), ordering medications,tests, procedures, referring, communicating with other health career development coordinator/teacher, indepentently interpreting results, counseling the patient and care coordination
== END 2023-08-20 14:12 | disposition skilled nursing facility (03) | DRG 602 ==
LOC: ER 11:38 → MS 15:40
PROVIDERS: Internal Medicine; Admitting Provider Internal Medicine; Emergency Provider Emergency Medicine Emergency Medical Services; Visit Provider Internal Medicine
DX: L03.115 Cellulitis of right lower limb (principal); U07.1 COVID-19; G89.29 Other chronic pain; R26.2 Difficulty in walking, not elsewhere classified; Z86.718 Personal history of other venous thrombosis and embolism; M54.50 Low back pain, unspecified; M79.10 Myalgia, unspecified site; D72.829 Elevated white blood cell count, unspecified; K21.9 Gastro-esophageal reflux disease without esophagitis; K58.9 Irritable bowel syndrome, unspecified; G25.81 Restless legs syndrome; S81.851A Open bite, right lower leg, initial encounter; W54.0XXA Bitten by dog, initial encounter; D63.8 Anemia in other chronic diseases classified elsewhere; B95.61 Methicillin susceptible Staphylococcus aureus infection as the cause of diseases classified elsewhere; B95.4 Other streptococcus as the cause of diseases classified elsewhere; Z85.3 Personal history of malignant neoplasm of breast; I10 Essential (primary) hypertension; E66.9 Obesity, unspecified; E55.9 Vitamin D deficiency, unspecified; Z68.34 Body mass index [BMI] 34.0-34.9, adult
CPT/HCPCS: 00123; 36410; 36415; 80048; 80053; 80076; 82306; 82550; 84145; 87040; 87077; 87635; 87637; 87641; 94640; 96365; 96366; 96367; 97110; 97163; 99285; J3490; 71045; 73590; 73701; 80202; 82728; 82746; 83540; 83550; 83735; 85025; 85379; 85610; 86140; 87070; 87186; 87205; 93971; 94664; 94667; 94668; 94760; 99223; 99232; 99233; 99238; J0248; J0690; J1941

== ENCOUNTER 2023-09-24 15:11 | Outpatient (REF) | payer MEDICARE, MEDICAID, SELFPAY ==
[2023-09-24 13:55] LABS: TSH 0.59 uIU/mL (0.36-3.74)
== END 2023-09-24 15:12 | disposition home or self-care (01) ==
LOC: LBN 15:11
PROVIDERS: Visit Provider Family Medicine
DX: E03.9 Hypothyroidism, unspecified (principal)
CPT/HCPCS: 84443

== ENCOUNTER 2023-10-27 16:07 | Outpatient (REF) | payer MEDICARE, MEDICAID, SELFPAY ==
[2023-10-27 17:14] LABS: COVID-19 PCR Negative (Negative); Influenza B PCR Negative (Negative); RSV PCR Negative (Negative)
[2023-10-27 17:15] LABS: Source Nasopharynx
[2023-10-27 17:17] LABS: Influenza A PCR Positive (Negative)
== END 2023-10-27 16:08 | disposition home or self-care (01) ==
LOC: LBN 16:07
PROVIDERS: PCP Family Medicine; Visit Provider Family Medicine
DX: J10.1 Influenza due to other identified influenza virus with other respiratory manifestations (principal); Z20.822 Contact with and (suspected) exposure to COVID-19
CPT/HCPCS: 87637

== ENCOUNTER → 2023-11-10 14:45 | Outpatient (CLI) | payer MEDICARE, MEDICAID, SELFPAY ==
--- NOTE | 2023-11-10 14:44 | DI.RAD_ITS ---
Exam(s) XR CHEST 2V PA LATERAL EXAM: XR CHEST 2V PA LATERAL CLINICAL HISTORY: CRACKLES, ? PNEUMONIA. TECHNIQUE: 2D digital imaging was performed. COMPARISON: CR XR PORTABLE CHEST AP from 08/13/2023 FINDINGS: 2 views: Heart size is upper normal. The mediastinum is not widened. There is infiltrate in left lower lobe retrocardiac region. Remainder of the lung hernadez are clear. No pleural effusions. IMPRESSION: Left lower lobe infiltrate. No obvious pleural effusions DATA REPOSITORY: RADIATION DOSE DELIVERED:
== END ==
PROVIDERS: PCP Family Medicine; Visit Provider Family Medicine
DX: R91.1 Solitary pulmonary nodule (principal)
CPT/HCPCS: 71046

== ENCOUNTER → 2023-11-24 00:19 | Outpatient (CLI) | payer MEDICARE, MEDICAID, SELFPAY ==
--- NOTE | 2023-11-24 10:29 | DI.RAD_ITS ---
Exam(s) XR CHEST 2V PA LATERAL EXAM: XR CHEST 2V PA LATERAL CLINICAL HISTORY: F/U PNEUMONIA, CONTINUED COUGH TECHNIQUE: 2D digital imaging was performed of the chest. Three images were obtained. PA and later al views were obtained. COMPARISON: CR XR CHEST 2V PA LATERAL from 11/10/2023 FINDINGS: MEDIASTINUM: Normal. HEART: Normal. PULMONARY VASCULATURE: Normal. LUNGS: Clear. The left lower lobe infiltrate has resolved. PLEURAL SPACE: No pleural effusion or pneumothorax. BONE:Within normal limits for the patient's age. There are multiple old compression deformities in t he thoracic and upper lumbar spine. OTHER FINDINGS:Normal. IMPRESSION: No acute pulmonary findings. DATA REPOSITORY: RADIATION DOSE DELIVERED:
== END ==
PROVIDERS: PCP Family Medicine; Visit Provider Family Medicine
DX: J18.9 Pneumonia, unspecified organism (principal)
CPT/HCPCS: 71046

== ENCOUNTER 2023-12-30 19:08 | Outpatient (REF) | payer MEDICARE, MEDICAID, SELFPAY ==
[2023-12-30 20:11] LABS: HCT 33.4 % (36.0-46.0); HGB 9.9 g/dL (11.2-15.7); MCH 25.9 pg (27.0-33.0); MCHC 29.6 % (32.0-36.0); MCV 87 fL (80-95); MPV 9.8 fL (8.0-11.0); Platelet Count 311 10^3/uL (130-400); RBC 3.82 10^6/uL (3.93-5.22); RDW 16.9 % (11.7-14.6); RDW-SD 53.9 fL; WBC 8.47 10^3/uL (4.4-10.8)
[2023-12-30 20:49] LABS: Anion Gap 11.7 mmol/L (3-11); BUN 18 mg/dL (7-18); CO2 24.3 mmol/L (21.0-32.0); CREATININE 0.8 mg/dL (0.55-1.02); Calcium 9.2 mg/dL (8.5-10.1); Chloride 107 mmol/L (98-107); Estimated GFR 76.79 (mL/min/1.73m2); Glucose 85 mg/dL (74-106); Potassium 4.4 mmol/L (3.5-5.1); Sodium 143 mmol/L (136-145)
== END 2023-12-30 19:09 | disposition home or self-care (01) ==
LOC: LBN 19:08
PROVIDERS: PCP Family Medicine; Visit Provider Otolaryngology Otolaryngology/Facial Plastic Surgery
DX: J44.9 Chronic obstructive pulmonary disease, unspecified (principal)
CPT/HCPCS: 80048; 85027

== ENCOUNTER 2024-07-12 20:19 | Outpatient (REF) | payer MEDICARE, MEDICAID, SELFPAY ==
[2024-07-12 13:34] LABS: Abs Immature Grans 0.01 10^3/uL (0.0-0.06); Absolute Basophil Count 0.05 10^3/uL (0.0-0.2); Absolute Eosinophil Count 0.17 10^3/uL (0.0-0.7); Absolute Lymphocyte Count 2.01 10^3/uL (1.2-3.4); Absolute Monocyte Count 0.46 10^3/uL (0.1-0.8); Basophils % 0.7 %; Eosinophils % 2.4 %; HCT 34.7 % (36.0-46.0); HGB 10.6 g/dL (11.2-15.7); Immature Grans % 0.1 %; Lymphocytes % 28.7 %; MCH 29.9 pg (27.0-33.0); MCHC 30.5 % (32.0-36.0); MCV 98 fL (80-95); MPV 9.2 fL (8.0-11.0); Monocytes % 6.6 %; Neutrophils % 61.5 %; Platelet Count 265 10^3/uL (130-400); RBC 3.55 10^6/uL (3.93-5.22); RDW 13.6 % (11.7-14.6); RDW-SD 49.2 fL
[2024-07-12 13:53] LABS: Anion Gap 5.7 mmol/L (3-11); BUN 22 mg/dL (7-18); CO2 29.3 mmol/L (21.0-32.0); CREATININE 0.8 mg/dL (0.55-1.02); Calcium 8.9 mg/dL (8.5-10.1); Chloride 108 mmol/L (98-107); Estimated GFR 76.79 (mL/min/1.73m2); Glucose 93 mg/dL (74-106); Potassium 4.4 mmol/L (3.5-5.1); Sodium 143 mmol/L (136-145); TSH (W/Ref FT4) 0.36 uIU/mL (0.36-3.74)
== END 2024-07-12 20:20 | disposition home or self-care (01) ==
LOC: LBN 20:19
PROVIDERS: PCP Family Medicine; Visit Provider Family Medicine
DX: M62.81 Muscle weakness (generalized) (principal); I10 Essential (primary) hypertension
CPT/HCPCS: 80048; 84443; 85025

== ENCOUNTER 2024-09-07 15:12 | Outpatient (REF) | payer MEDICARE, MEDICAID, SELFPAY ==
[2024-09-07 15:55] LABS: TSH 1.49 uIU/mL (0.36-3.74)
== END 2024-09-07 15:13 | disposition home or self-care (01) ==
LOC: LBN 15:12
PROVIDERS: PCP Family Medicine; Visit Provider Family Medicine
DX: R68.89 Other general symptoms and signs (principal)
CPT/HCPCS: 84443

== ENCOUNTER 2024-09-14 12:18 | Outpatient (REF) | payer MEDICARE, MEDICAID, SELFPAY ==
[2024-09-14 15:51] LABS: Abs Immature Grans 0.14 10^3/uL (0.0-0.06); HCT 34.4 % (36.0-46.0); HGB 10.6 g/dL (11.2-15.7); MCH 28.9 pg (27.0-33.0); MCHC 30.8 % (32.0-36.0); MCV 94 fL (80-95); MPV 10.2 fL (8.0-11.0); Platelet Count 209 10^3/uL (130-400); RBC 3.67 10^6/uL (3.93-5.22); RDW 14.2 % (11.7-14.6); WBC 7.51 10^3/uL (4.4-10.8)
[2024-09-14 16:14] LABS: ALT 15 U/L (14-59); AST 13 U/L (15-37); Albumin 2.7 g/dL (3.4-5.0); Alkaline Phosphatase 96 U/L (46-116); Anion Gap 8.7 mmol/L (3-11); BUN 52 mg/dL (7-18); Bilirubin, Total 0.12 mg/dL (0.2-1.0); CO2 24.3 mmol/L (21.0-32.0); CREATININE 2.2 mg/dL (0.55-1.02); Calcium 9.5 mg/dL (8.5-10.1); Chloride 109 mmol/L (98-107); Estimated GFR 22.81 (mL/min/1.73m2); Glucose 104 mg/dL (74-106); Potassium 4.6 mmol/L (3.5-5.1); Sodium 142 mmol/L (136-145); Total Protein 6.4 g/dL (6.4-8.2)
[2024-09-14 17:12] LABS: Absolute Monocyte Count 0.38 10^3/uL (0.1-0.8); Absolute Neutrophil Count 5.03 10^3/uL (1.2-6.7); Atypical Lymphocytes % 3 %; Diff Comment Manual Differential; RBC Morphology Normal
== END 2024-09-14 12:19 | disposition home or self-care (01) ==
LOC: LBN 12:18
PROVIDERS: PCP Family Medicine; Visit Provider Family Medicine
DX: E03.9 Hypothyroidism, unspecified (principal)
CPT/HCPCS: 80053; 81003; 84443; 85025

== ENCOUNTER 2024-12-30 01:41 | Outpatient (REF) | payer MEDICARE, SELFPAY ==
[2024-12-30 02:10] LABS: Bilirubin Negative (Negative); Blood Large (Negative); Clarity Sl Cloudy (Clear); Glucose Negative (Negative); Ketones Negative (Negative); Leukocyte Esterase Large (Negative); Nitrite Negative (Negative); Specific Gravity 1.025 (1.005-1.025); Urobilinogen 0.2 mg/dL (Up to 0.2)
[2024-12-30 02:12] LABS: WBC >50 HPF (0-5)
[2024-12-30 02:13] LABS: C & S Indicated? C&S Done As Ordered
== END 2024-12-30 01:42 | disposition home or self-care (01) ==
LOC: LBN 01:41
PROVIDERS: PCP Family Medicine; Visit Provider Family Medicine Geriatric Medicine
DX: G47.00 Insomnia, unspecified (principal)
CPT/HCPCS: 81003; 81015; 87086

== ENCOUNTER 2024-12-30 16:38 | Inpatient (IN) | payer MEDICARE, MEDICAID, SELFPAY ==
[2024-12-30] VITALS (80 sets, daily range): BP systolic 47–150; BP diastolic 34–121; PULSE 52–169; RESP 15–34; TEMP 36.7; O2SAT 78–100
--- NOTE | 2024-12-30 16:45 | DI.RAD_ITS ---
Exam(s) XR CHEST 2V PA LATERAL EXAM: XR CHEST 2V PA LATERAL CLINICAL HISTORY: reports cough. TECHNIQUE: 2D digital imaging was performed. COMPARISON: CT CT ABDOMEN PELVIS W from 02/18/2023 CR XR CHEST 2V PA LATERAL from 11/24/2023 FINDINGS: 2 views: Heart size is upper normal. The mediastinum is not widened. Left hemidiaphragm is elevated and there is some infiltrate in the left lower lobe infrahilar region. Possible small amount left pleural fluid. Mild increased markings also noted in the right lower lo be. IMPRESSION: Left lower lobe infiltrate. Elevated left hemidiaphragm. Mild increased markings in the right lower lobe. DATA REPOSITORY: RADIATION DOSE DELIVERED:
--- NOTE | 2024-12-30 16:59 | ED.GENADUL_ITS ---
Discharge Plan Disposition Patient Disposition: Admit to [facility] Condition: Stable Discharge Details Clinical Impression: Urinary tract infection, Pneumonia, Hyperkalemia, Acute kidney injury Primary Care Provider: Hernan Schmitt ED Provider: Jaya Young Home Meds and New Rx's Prescriptions: No Action ondansetron 4 mg tablet,disintegrating 4 mg PO Q4H PRN PRN (Reason: nausea and vomiting) topiramate [Topamax] 50 mg tablet 25 mg PO DAILY sertraline 25 mg tablet 200 mg PO DAILY Lubricant Eye (PG-PEG 400) 0.4-0.3 % drops 2 drp ophthalmic (eye) QID PRN Patient Comments: 2 drops Bilat eye 4x/day PRN benzonatate 100 mg capsule 100 mg PO Q6H PRN topiramate [Topamax] 50 mg tablet 50 mg PO QHS potassium chloride [K-Tab] 20 mEq tablet extended release 20 meq PO DAILY hydrocortisone [Preparation H Hydrocortisone] 1 % cream 1 applic topical BID PRN ropinirole 0.25 mg tablet 0.5 mg PO QHS calcium carbonate 550 mg tablet,chewable 1,100 mg PO DAILY PRN Deep Sea Nasal 0.65 % aerosol,spray 2 spray intranasal BID PRN clonazepam 0.5 mg tablet 0.5 mg PO TID clotrimazole [Antifungal (clotrimazole)] 1 % cream 1 applic topical QAM AND QPM diphenhydramine HCl [Allergy Medication] 25 mg capsule 25 mg PO Q8H PRN diclofenac sodium 1 % gel 4 g topical Q12H PRN PRN (Reason: pain) Rx Instructions: apply to single knee, ankle, foot; for foot includes sole/toes/top of foot bisacodyl [Gentle Laxative (bisacodyl)] 10 mg suppository 10 mg ID DAILY PRN Eliquis 5 mg tablet 5 mg PO BID fluticasone propionate [Flonase Allergy Relief] 50 mcg/actuation spray,suspension 1 spray intranasal DAILY Rx Instructions: administer into each nostril ibuprofen [IBU] 600 mg tablet 600 mg PO Q8H PRN PRN levothyroxine 125 mcg capsule 125 mcg PO DAILY lisinopril [Zestril] 40 mg tablet 40 mg PO HS loperamide [Anti-Diarrheal (loperamide)] 2 mg tablet 4 mg PO Q8H metoprolol succinate 50 mg capsule,sprinkle,ER 24hr 50 mg PO DAILY magnesium hydroxide 400 mg/5 mL suspension 5 ml PO DAILY PRN acetaminophen 500 mg tablet 1,000 mg PO TID fluticasone propion-salmeterol [Advair Diskus] 500-50 mcg/dose blister with device 1 inh inhalation BID Afrin (oxymetazoline) 0.05 % mist 2 spray intranasal Q12H PRN (Reason: nose bleeds) albuterol 90 mcg/actuation aerosol 108 mcg inhalation Q4H PRN PRN (Reason: shortness of breath or wheezing) alendronate 70 mg tablet 70 mg PO QWEEK Rx Instructions: every Wednesday calcium carbonate-vitamin D3 [Calcium 500 + D] 500 mg-10 mcg (400 unit) tablet 1 tab PO BID Eucerin Skin Calming Cream 1 applic topical Q12H PRN PRN (Reason: dry skin) alum-mag hydroxide-simeth 400-400-40 mg/5 mL suspension 10 ml PO Q6H PRN Zinc Oxide Diaper Cream 1-10 % cream 1 applic topical Q2H PRN PRN (Reason: rectal discomfort) triamcinolone acetonide 0.1 % cream 1 applic topical HS cholecalciferol (vitamin D3) 25 mcg (1,000 unit) Tablet 25 mcg PO DAILY Qty: 0 0RF polyethylene glycol 3350 17 gram Powder In Packet 17 g PO DAILY PRN PRN (Reason: Constipation) Qty: 0 0RF HPI General Date/Time Provider Initiated Documentation: 12/30/24 16:46 . HPI Narrative: 74 year-old female presents to ED today by EMS, [facility], with a chief complaint of possible altered mentation reported by her roommate for the past 1-3 days- patient reaching for things that aren't there, seeing stars in her vision. Quality described as only isolated back pain, patient appropriately answering questions with provider, no radiation to dysuria, endorses cough and fever, denies nausea/vomiting, denies respiratory distress or abdominal pain, denies chest pain. Severity is described as states her chronic back pain is at its baselien. Palliating factors include nothing specific attempted. Provoking factors include nothing specific. Events leading up to the incident/Associated Symptoms: Patient has history of UTIs. Patient is anticoagulated on Eliquis. Related Data Home Medications ?Medication ?Instructions ?Recorded ?Confirmed acetaminophen 500 mg tablet 1,000 mg PO TID 08/13/23 12/30/24 albuterol 90 mcg/actuation aerosol 108 mcg inhalation Q4H PRN PRN 08/13/23 12/30/24 inhaler shortness of breath or wheezing alendronate 70 mg tablet 70 mg PO QWEEK 08/13/23 12/30/24 aluminum-mag hydroxide-simethicone 10 ml PO Q6H PRN 08/13/23 12/30/24 400 mg-400 mg-40 mg/5 mL oral susp apixaban 5 mg tablet (Eliquis) 5 mg PO BID 08/13/23 12/30/24 benzonatate 100 mg capsule 100 mg PO Q6H PRN 08/13/23 12/30/24 bisacodyl 10 mg rectal suppository 10 mg ID DAILY PRN 08/13/23 12/30/24 (Gentle Laxative (bisacodyl)) calcium 500 mg (as 1 tab PO BID 08/13/23 12/30/24 carbonate)-vitamin D3 10 mcg (400 unit) tablet (Calcium 500 + D) calcium carbonate 550 mg chewable 1,100 mg PO DAILY PRN 08/13/23 12/30/24 tablet clonazepam 0.5 mg tablet 0.5 mg PO TID 08/13/23 12/30/24 clotrimazole 1 % topical cream 1 applic topical QAM AND QPM 08/13/23 12/30/24 (Antifungal (clotrimazole)) diclofenac sodium 1 % topical gel 4 g topical Q12H PRN PRN pain 08/13/23 12/30/24 dimethicone 1 %-zinc oxide 10 1 applic topical Q2H PRN PRN 08/13/23 12/30/24 %-vit A and D-aloe vera topical rectal discomfort cream (Zinc Oxide Diaper Cream) diphenhydramine HCl 25 mg capsule 25 mg PO Q8H PRN 08/13/23 12/30/24 (Allergy Medication) emollient combination no.69 1 applic topical Q12H PRN PRN dry 08/13/23 12/30/24 (Eucerin Skin Calming cream) skin fluticasone 500 mcg-salmeterol 50 1 inh inhalation BID 08/13/23 12/30/24 mcg/dose blistr powdr for inhalation (Advair Diskus) fluticasone propionate 50 1 spray intranasal DAILY 08/13/23 12/30/24 mcg/actuation nasal spray,suspension (Flonase Allergy Relief) hydrocortisone 1 % topical cream 1 applic topical BID PRN 08/13/23 12/30/24 (Preparation H Hydrocortisone) ibuprofen 600 mg tablet (IBU) 600 mg PO Q8H PRN PRN 08/13/23 12/30/24 levothyroxine 125 mcg capsule 125 mcg PO DAILY 08/13/23 12/30/24 lisinopril 40 mg tablet (Zestril) 40 mg PO HS 08/13/23 12/30/24 loperamide 2 mg tablet 4 mg PO Q8H 08/13/23 12/30/24 (Anti-Diarrheal (loperamide)) magnesium hydroxide 400 mg/5 mL 5 ml PO DAILY PRN 08/13/23 12/30/24 oral suspension metoprolol succinate 50 mg capsule 50 mg PO DAILY 08/13/23 12/30/24 sprinkle, ext. release 24 hr ondansetron 4 mg disintegrating 4 mg PO Q4H PRN PRN nausea and 08/13/23 12/30/24 tablet vomiting oxymetazoline 0.05 % nasal mist 2 spray intranasal Q12H PRN nose 08/13/23 12/30/24 (Afrin (oxymetazoline)) bleeds peg 400-propylene glycol 0.4 %-0.3 2 drp ophthalmic (eye) QID PRN 08/13/23 12/30/24 % eye drops (Lubricant Eye (PG-PEG 400)) potassium chloride 20 mEq 20 meq PO DAILY 08/13/23 12/30/24 tablet,extended release (K-Tab) ropinirole 0.25 mg tablet 0.5 mg PO QHS 08/13/23 12/30/24 sertraline 25 mg tablet 200 mg PO DAILY 08/13/23 12/30/24 sodium chloride 0.65 % nasal spray 2 spray intranasal BID PRN 08/13/23 12/30/24 aerosol (Deep Sea Nasal) topiramate 50 mg tablet (Topamax) 25 mg PO DAILY 08/13/23 12/30/24 topiramate 50 mg tablet (Topamax) 50 mg PO QHS 08/13/23 12/30/24 triamcinolone acetonide 0.1 % 1 applic topical HS 08/13/23 12/30/24 topical cream cholecalciferol (vitamin D3) 25 25 mcg PO DAILY #0 tabs 08/20/23 12/30/24 mcg (1,000 unit) tablet polyethylene glycol 3350 17 gram 17 g PO DAILY PRN PRN Constipation 08/20/23 12/30/24 oral powder packet #0 ea Previous Rx's ?Medication ?Instructions ?Recorded cholecalciferol (vitamin D3) 25 25 mcg PO DAILY #0 tabs 08/20/23 mcg (1,000 unit) tablet polyethylene glycol 3350 17 gram 17 g PO DAILY PRN PRN Constipation 08/20/23 oral powder packet #0 ea Allergies Allergy/AdvReac Type Severity Reaction Status Date / Time Penicillins Allergy Intermediate rash Unverified 12/30/24 21:22 transparent dressing Allergy Mild rash Unverified 12/30/24 21:22 procaine (From Novocain) AdvReac Mild light Unverified 12/30/24 21:22 headed ativan Allergy Intermediate Unknown Uncoded 12/30/24 21:22 General Stated Complaint: AMS/LOC JAYNA: 2 Review of Systems All systems reviewed & are unremarkable except as noted in HPI and below Exam Narrative Exam Narrative: GENERAL APPEARANCE: Well-nourished, non-toxic, awake and alert, atraumatic, no acute distress. SKIN: Warm, pink, dry, intact, without rashes/lesions/ulcerations. HEAD: Normocephalic, atraumatic, normal hair distribution for gender/age. EYES: Normal conjunctiva, no exudates on lids/lashes. ENT: Nares patent, no circumoral cyanosis, no facial swelling NECK: Supple, trachea midline, painless cervical ROM. LUNGS/CHEST: Lungs CTA bilaterally-no overt rhonchi/rales/wheezes diffusely, non-labored respirations, normal A/P diameter, symmetrical expansion, no chest wall deformity HEART (CV/PV): Regular rate and rhythm without murmur, no peripheral edema, no JVD. ABDOMEN: Soft, non-distended, no guarding, no CVA tenderness percussion. MSK: Normal ROM, no swelling/deformity to bilateral UEs or LEs, moving all e xtremities without weakness, no cyanosis, spine midline without tenderness, normal curvature. Mild tenderness on the lumbar paraspinal region which the patient states is chronic NEURO: Mental Status AAOx4 - alert to person, place, time, events No facial droop, no forehead involvement. Motor: No focal weakness - strength 5/5 in bilateral UEs and LEs, proximal and distal, symmetric. Sensory: sensation intact to light touch globally. Gait NT PSYCH: euthymic, cooperative, pleasant, appropriate speech Course Vital Signs Vital signs: Vital Signs Temperature 36.7 C 12/30/24 16:37 Pulse 118 H 12/30/24 16:37 Respiratory Rate 16 12/30/24 16:37 Blood Pressure 113/74 12/30/24 16:37 Pulse Oximetry 96 12/30/24 16:37 Temperature 36.7 C 12/30/24 16:50 Temperature Source Oral 12/30/24 16:50 Pulse 118 H 12/30/24 16:50 Respiratory Rate 16 12/30/24 16:50 Respiratory Effort Normal 12/30/24 16:50 Respiratory Depth Normal 12/30/24 16:50 Respiratory Pattern Normal 12/30/24 16:50 Blood Pressure 113/74 12/30/24 16:50 Blood Pressure Position Supine 12/30/24 16:50 Pulse Oximetry 96 12/30/24 16:50 Oxygen Delivery Method Room Air 12/30/24 16:50 Oxygen Flow Rate 0 12/30/24 16:37 Medical Decision Making This dictation utilizes [id number] dictation software and may contain unedited grammatical errors. 74 year-old female presents to ED today by EMS, [facility], with a chief complaint of possible altered mentation reported by her roommate for the past 1-3 days- patient reaching for things that aren't there, seeing stars in her vision. Quality described as only isolated back pain, patient appropriately answering questions with provider, no radiation to dysuria, endorses cough and fever, denies nausea/vomiting, denies respiratory distress or abdominal pain, denies chest pain. Severity is described as states her chronic back pain is at its baselien. Palliating factors include nothing specific attempted. Provoking factors include nothing specific. Events leading up to the incident/Associated Symptoms: Patient has history of UTIs. Patients' medical history: History of PE, DVT, UTIs, GERD, IBS, chronic back pain, ambulatory dysfunction. Family and social history: Lives at [facility], eats normal diet. Pertinent exam findings / vital signs include no focal abdominal pain, lumbar back tenderness without crepitus or step-off, benign cardiopulmonary exam, nontoxic and afebrile. Differential / pathologies of concern include UTI, encephalopathy, pneumonia, COVID/flu/RSV, not respiratory failure, unlikely stroke, possible hydration. Diagnostic studies of: -CBC, CMP, UA, Magnesium, XR Chest, EKG. -CBC shows anemia, no leukocytosis -CMP shows SCOTTIE- SCr to 5.1, with a BUN of 93 pre-renal, K+ of 6.0 -Magnesium WNL -CXR questions infiltrate L base, covering with ABX -UA shows > 50 WBCs, giving ABX Interventions of: -2L IVF NS for SCOTTIE, 2gm IVF Ceftriaxone, 500mg IV Azithromycin. -Calcium gluconate, albuterol, insulin + D50amp , Kayexelate given for hyperkalemia with EKG changes. -Allen placed, got 100mL out- patient then had no output for ~60 minutes, given 80mg IV Lasix, with >50mL / hr output -Repeat BMP shows potassium 5.0, only slight improvement of SCOTTIE, likely needs a ggressive fluids and intermittent lasix -Consulted with Hospitalist Dr. Singh who accepted for admission ED Course/Assessment/Plan: 74-year-old female has been acting herself for [address] [facility], she is found to have a severe UTI and severe SCOTTIE, initially was unresponsive to fluids, Allen was placed and she was given Lasix and put out 200 mL, likely needs aggressive fluid rehydration to help with her SCOTTIE do not suspect acute renal failure at this time, patient's potassium was shifted and is currently normal, patient receiving ceftriaxone for her UTI, no leukocytosis, unlikely septic, was answering questions appropriately. Excepted for admission at 2205. Question PNA on CXR, adding azithromycin for atypicals- could ruleout with repeat CXR Findings not consistent with acute renal failure, sepsis. Disposition of acute kidney injury, hyperkalemia, pneumonia, urinary tract infection. Patient verbalized understanding of the plan and return to ED criteria and engaged in shared decision making. Medical Records Medical records reviewed: Yes I reviewed the patient's medical records. Imaging Data Radiologic Study: Attestation: I personally reviewed and interpreted this imaging study as follows: Imaging: X-Ray Radiologist's impression: EXAM: XR CHEST 2V PA LATERAL CLINICAL HISTORY: reports cough. TECHNIQUE: 2D digital imaging was performed. COMPARISON: CT CT ABDOMEN PELVIS W from 02/18/2023 CR XR CHEST 2V PA LATERAL from 11/24/2023 FINDINGS: 2 views: Heart size is upper normal. The mediastinum is not widened. Left hemidiaphragm is elevated and there is some infiltrate in the left lower lobe infrahilar region. Possible small amount left pleural fluid. Mild increased markings also noted in the right lower lobe. IMPRESSION: Left lower lobe infiltrate. Elevated left hemidiaphragm. Mild increased markings in the right lower lobe. Lab Data Lab results reviewed: Yes I reviewed the patient's lab results. Labs: 12/30/24 17:25 Urine - Reflex from Ua Urine Culture - Pending Laboratory Tests Range/Units 12/30/24 12/30/24 12/30/24 17:05 17:25 18:07 WBC (4.4-10.8) 10^3/uL 9.07 RBC (3.93-5.22) 10^6/uL 3.36 L Hgb (11.2-15.7) g/dL 10.0 L Hct (36.0-46.0) % 31.1 L MCV (80-95) fL 93 MCH (27.0-33.0) pg 29.8 MCHC (32.0-36.0) % 32.2 RDW (11.7-14.6) % 14.6 Plt Count (130-400) 10^3/uL 145 MPV (8.0-11.0) fL 9.9 Immature Gran % % 0.0 Neutrophils % % 94.0 Lymphocytes % % 3.0 Monocytes % % 2.0 Eosinophils % % 1.0 Basophils % % 0.0 Nucleated RBC % (0.0-0.3) % 0.0 Absolute Neutrophils (1.2-6.7) 10^3/uL 8.53 H Absolute Lymphocytes (1.2-3.4) 10^3/uL 0.27 L Absolute Monocytes (0.1-0.8) 10^3/uL 0.18 Absolute Eosinophils (0.0-0.7) 10^3/uL 0.09 Absolute Basophils (0.0-0.2) 10^3/uL 0.00 RBC Morphology Normal Sodium (136-145) mmol/L 136 Potassium (3.5-5.1) mmol/L 6.0 H* Chloride (98-107) mmol/L 102 Carbon Dioxide (21.0-32.0) mmol/L 22.7 Anion Gap (3-11) mmol/L 11.3 H BUN (7-18) mg/dL 93 H* Creatinine (0.55-1.02) mg/dL 5.1 H* Est GFR (CKD-EPI 2020) (mL/min/1.73m2) 8.26 Glucose (74-106) mg/dL 83 Calcium (8.5-10.1) mg/dL 8.9 Magnesium (1.8-2.4) mg/dL 1.9 Total Bilirubin (0.2-1.0) mg/dL 0.4 AST (15-37) U/L 39 H ALT (14-59) U/L 34 Alkaline Phosphatase (46-116) U/L 150 H Creatine Kinase (26-192) U/L 67 Troponin I (<or=51) ng/L 5 Total Protein (6.4-8.2) g/dL 6.7 Albumin (3.4-5.0) g/dL 2.4 L TSH (0.36-3.74) uIU/mL 0.17 L Urine Color (Yellow) Yellow Urine Clarity (Clear) Cloudy Urine pH (5-8) 5.5 Ur Specific [place] (1.005-1.025) 1.020 Urine Protein (Neg-Trace) mg/dL >=300 H Urine Ketones (Negative) mg/dL Negative Urine Blood (Negative) Large H Urine Nitrite (Negative) Negative Urine Bilirubin (Negative) Negative Urine Urobilinogen (Up to 0.2) mg/dL 0.2 Ur Leukocyte Esterase (Negative) Small H Urine RBC (0-2) HPF Negative Urine WBC (0-5) HPF >50 H Ur Epithelial Cells (Negative) HPF Negative Urine Crystals (Negative) HPF Negative Urine Bacteria (Negative) HPF Negative Urine Casts (Negative) LPF Negative Urine Mucus (Negative) Negative Ur Culture Indicated? Yes Urine Glucose (Negative) mg/dL Negative COVID-19 Source Nasopharynx SARS-CoV-2 (PCR) (Negative) Negative Influenza Type A (PCR) (Negative) Negative Influenza Type B (PCR) (Negative) Negative RSV (PCR) (Negative) Negative Add-On Test Request Cancelled Range/Units 12/30/24 20:10 WBC (4.4-10.8) 10^3/uL RBC (3.93-5.22) 10^6/uL Hgb (11.2-15.7) g/dL Hct (36.0-46.0) % MCV (80-95) fL MCH (27.0-33.0) pg MCHC (32.0-36.0) % RDW (11.7-14.6) % Plt Count (130-400) 10^3/uL MPV (8.0-11.0) fL Immature Gran % % Neutrophils % % Lymphocytes % % Monocytes % % Eosinophils % % Basophils % % Nucleated RBC % (0.0-0.3) % Absolute Neutrophils (1.2-6.7) 10^3/uL Absolute Lymphocytes (1.2-3.4) 10^3/uL Absolute Monocytes (0.1-0.8) 10^3/uL Absolute Eosinophils (0.0-0.7) 10^3/uL Absolute Basophils (0.0-0.2) 10^3/uL RBC Morphology Sodium (136-145) mmol/L 140 Potassium (3.5-5.1) mmol/L 5.0 D Chloride (98-107) mmol/L 106 Carbon Dioxide (21.0-32.0) mmol/L 21.4 Anion Gap (3-11) mmol/L 12.6 H BUN (7-18) mg/dL 90 H* Creatinine (0.55-1.02) mg/dL 5.0 H* Est GFR (CKD-EPI 2020) (mL/min/1.73m2) 8.46 Glucose (74-106) mg/dL 84 Calcium (8.5-10.1) mg/dL 8.2 L Magnesium (1.8-2.4) mg/dL Total Bilirubin (0.2-1.0) mg/dL AST (15-37) U/L ALT (14-59) U/L Alkaline Phosphatase (46-116) U/L Creatine Kinase (26-192) U/L Troponin I (<or=51) ng/L Total Protein (6.4-8.2) g/dL Albumin (3.4-5.0) g/dL TSH (0.36-3.74) uIU/mL Urine Color (Yellow) Urine Clarity (Clear) Urine pH (5-8) Ur Specific [place] (1.005-1.025) Urine Protein (Neg-Trace) mg/dL Urine Ketones (Negative) mg/dL Urine Blood (Negative) Urine Nitrite (Negative) Urine Bilirubin (Negative) Urine Urobilinogen (Up to 0.2) mg/dL Ur Leukocyte Esterase (Negative) Urine RBC (0-2) HPF Urine WBC (0-5) HPF Ur Epithelial Cells (Negative) HPF Urine Crystals (Negative) HPF Urine Bacteria (Negative) HPF Urine Casts (Negative) LPF Urine Mucus (Negative) Ur Culture Indicated? Urine Glucose (Negative) mg/dL COVID-19 Source SARS-CoV-2 (PCR) (Negative) Influenza Type A (PCR) (Negative) Influenza Type B (PCR) (Negative) RSV (PCR) (Negative) Add-On Test Request Quality:SDOH Health Related Social Needs: No Data to Display PFSH All Active Problems (Updated 12/30/24 @ 20:08 by CORRY Thomason) Acute kidney injury (Acute) Hyperkalemia (Acute) Pneumonia (Acute) Urinary tract infection (Acute) H/O deep venous thrombosis (Chronic) Wound of right lower extremity (Acute) Cellulitis of right lower extremity (Acute) Sepsis (Acute) COVID-19 (Acute) GERD (gastroesophageal reflux disease) (Chronic) IBS (irritable bowel syndrome) (Chronic) Restless legs syndrome (RLS) (Acute) Chronic back pain (Chronic) Ambulatory dysfunction (Chronic) Obesity (BMI 30.0-34.9) (Acute) Medical History Pulmonary embolism DVT (deep venous thrombosis) Breast cancer, right Surgical History S/P breast reconstruction, right S/P right mastectomy Family History Brother Diabetes Sister Diabetes Sister Hypertension Sister Hypertension Melanoma Other Adopted Social History Smoking/Tobacco Use Status: Never Smoking risk assessment performed?: Yes Alcohol Intake: current Alcohol Intake frequency: holidays/special occasions only Drug use: Never Adopted: Yes Housing: [facility] Do you feel safe at home: Yes Additional Social history:
[2024-12-30] MEDS: Acetaminophen 325 MG TAB 650 MG PO (17:01)
[2024-12-30 17:11] LABS: HCT 31.1 % (36.0-46.0); MCH 29.8 pg (27.0-33.0); MCHC 32.2 % (32.0-36.0); MCV 93 fL (80-95); MPV 9.9 fL (8.0-11.0); Platelet Count 145 10^3/uL (130-400); RBC 3.36 10^6/uL (3.93-5.22); RDW 14.6 % (11.7-14.6); RDW-SD 49.7 fL; WBC 9.07 10^3/uL (4.4-10.8)
[2024-12-30 17:35] LABS: Bilirubin Negative (Negative); Blood Large (Negative); Clarity Cloudy (Clear); Glucose Negative (Negative); Ketones Negative (Negative); Leukocyte Esterase Small (Negative); Nitrite Negative (Negative); Urobilinogen 0.2 mg/dL (Up to 0.2); pH 5.5 (5-8)
[2024-12-30 17:36] LABS: Absolute Neutrophil Count 8.53 10^3/uL (1.2-6.7)
[2024-12-30 17:37] LABS: Absolute Eosinophil Count 0.09 10^3/uL (0.0-0.7); Absolute Lymphocyte Count 0.27 10^3/uL (1.2-3.4); Absolute Monocyte Count 0.18 10^3/uL (0.1-0.8); Diff Comment Manual Differential; RBC Morphology Normal
[2024-12-30 17:44] LABS: Bacteria Negative HPF (Negative); C & S Indicated? Yes; Casts Negative LPF (Negative); Crystals Negative HPF (Negative); Epithelial Cells Negative HPF (Negative); Mucus Negative (Negative); RBC Negative HPF (0-2); WBC >50 HPF (0-5)
[2024-12-30 17:46] LABS: ALT 34 U/L (14-59); AST 39 U/L (15-37); Albumin 2.4 g/dL (3.4-5.0); Alkaline Phosphatase 150 U/L (46-116); Anion Gap 11.3 mmol/L (3-11); Bilirubin, Total 0.4 mg/dL (0.2-1.0); CO2 22.7 mmol/L (21.0-32.0); Calcium 8.9 mg/dL (8.5-10.1); Chloride 102 mmol/L (98-107); Estimated GFR 8.26 (mL/min/1.73m2); Glucose 83 mg/dL (74-106); Magnesium 1.9 mg/dL (1.8-2.4); Sodium 136 mmol/L (136-145); Total Protein 6.7 g/dL (6.4-8.2)
--- NOTE | 2024-12-30 18:00 | RT.EKG_ITS ---
APPROVED REPORT Exam: Resting ECG Reason for Exam: hyperkalemia Patient Location: E HR:104 bpm ECG Measurements Heart Rate 104 AXIS WA 166 P 8 QRSd 93 QRS -10 QT 340 T 4 QTc 448 Conclusion Sinus tachycardia 104 normal axis no stemi
[2024-12-30 18:01] LABS: BUN 93 mg/dL (7-18)
[2024-12-30 18:02] LABS: CREATININE 5.1 mg/dL (0.55-1.02)
[2024-12-30] MEDS: cefTRIAXone 2 GM/50 ML BAG IVPB (18:07)
[2024-12-30] MEDS: Normal Saline 1,000 ML 500 ML IV (18:12)
[2024-12-30 18:16] LABS: COVID-19 PCR Negative (Negative); Influenza A PCR Negative (Negative); Influenza B PCR Negative (Negative); RSV PCR Negative (Negative)
[2024-12-30 18:25] LABS: Source Nasopharynx
[2024-12-30] MEDS: Dextrose 50%-Water 25 GM/50 ML SYR IVP (18:46)
[2024-12-30 18:50] LABS: Creatine Kinase 67 U/L (26-192); TSH (W/Ref FT4) 0.17 uIU/mL (0.36-3.74); Troponin I 5 ng/L (<or=51)
[2024-12-30] MEDS: Albuterol 2.5 MG/3 ML INH SOLN VIAL 7.5 MG UPD (18:59)
[2024-12-30] MEDS: AZITHROMYCIN 500 MG in Normal Saline 250 ML 250 MG IVPB (19:06)
[2024-12-30] MEDS: Insulin REGULAR-Human 100 UNITS/ML UNIT IV (19:06)
[2024-12-30 20:35] LABS: Anion Gap 12.6 mmol/L (3-11); CO2 21.4 mmol/L (21.0-32.0); Calcium 8.2 mg/dL (8.5-10.1); Chloride 106 mmol/L (98-107); Estimated GFR 8.46 (mL/min/1.73m2); Glucose 84 mg/dL (74-106); Sodium 140 mmol/L (136-145)
[2024-12-30 20:40] LABS: BUN 90 mg/dL (7-18)
[2024-12-30] MEDS: Furosemide 40 MG/4 ML VIAL IVP ×2 (20:43)
[2024-12-30] MEDS: clonazePAM 0.5 MG TAB PO (20:53)
[2024-12-30] MEDS: Normal Saline 1,000 ML 150 ML IV (20:56)
--- NOTE | 2024-12-30 22:06 | W.PM.HP.N ---
Date of service: 12/30/24 Time of Service: 22:09 Assessment and Plan Assessment and plan (1) Acute kidney injury: Start date: 12/30/24 Status: Acute Assessment and plan: This is a 74-year-old lady with decreased intake over the last couple days patient with UTI and possible early pneumonia as well as marked elevation in her baseline creatinine. She is advised IV fluid resuscitation and treatment of her UTI. He did require a dose of Lasix to initiate urine output. She is eating and drinking without nausea and vomiting. She will have supervised living when returning to the detention. Continue IV hydration and trending labs. Patient is a full code. (2) Hyperkalemia: Start date: 12/30/24 Status: Acute Assessment and plan: Improving with IV hydration and Lasix. Monitor labs while hydrating. (3) Urinary tract infection: Start date: 12/30/24 Status: Acute Assessment and plan: Continue Rocephin IV and follow-up on cultures adjusting antibiotic therapy to culture results. She can return to the detention on oral antibiotics. (4) Pneumonia: Start date: 12/30/24 Status: Acute Assessment and plan: IV doxycycline converted to oral therapy once stable. (5) Pulmonary embolism: Assessment and plan: Continue outpatient Eliquis. (6) Hypothyroidism (acquired): Status: Chronic Assessment and plan: TSH is suppressed and may be over replaced at this time with reevaluation as an outpatient and hold Synthroid for now. History of Present Illness History of Present Illness Chief Complaint: Confusion with chronic back pain and decreased intake. Narrative: This is a 74-year-old female patient who resides at a local detention after she lost her and requires increased care. She was noted to have increased confusion recently prompting referral to ED for evaluation. She has had increased weakness and inability to ambulate with chronic back pain stable. She said that she was having some visual changes seeing stars that were not there region per them according to her roommate. She has had a cough with fever at detention but had negative influenza/COVID/RSV screening in the ED. Chest x-ray did show some infiltrates over her lower lung hernadez. She was given IV resuscitation for SCOTTIE which may be because of her decreased intake and confusion with UTI and pneumonia but did require some Lasix to initiate urine output. Her labs were improving in the ED with marked elevation of her creatinine from baseline. She was admitted for continued IV hydration. She was also given IV Rocephin and Zithromax in the ED for UTI and possible pneumonia by imaging. Cultures are pending. She had no elevation of the WBC and no fever measured in the ED. Patient is unable to give much history with her acute confusion wandering in conversation. She will return to the detention once stable. She is a full code. Review of Systems Narrative: 13 point review of systems unobtainable with patient's confusion being unable to answer questions appropriately. PFSH All Active Problems Hypothyroidism (acquired) (Chronic) Acute kidney injury (Acute) Hyperkalemia (Acute) Pneumonia (Acute) Urinary tract infection (Acute) H/O deep venous thrombosis (Chronic) Wound of right lower extremity (Acute) Cellulitis of right lower extremity (Acute) Sepsis (Acute) COVID-19 (Acute) GERD (gastroesophageal reflux disease) (Chronic) IBS (irritable bowel syndrome) (Chronic) Restless legs syndrome (RLS) (Acute) Chronic back pain (Chronic) Ambulatory dysfunction (Chronic) Obesity (BMI 30.0-34.9) (Acute) Medical History Pulmonary embolism DVT (deep venous thrombosis) Breast cancer, right Surgical History S/P breast reconstruction, right S/P right mastectomy Family History Brother Diabetes Sister Diabetes Sister Hypertension Sister Hypertension Melanoma Other Adopted Social History Smoking/Tobacco Use Status: Never Smoking risk assessment performed?: Yes Alcohol Intake: current Alcohol Intake frequency: holidays/special occasions only Drug use: Never Adopted: Yes Housing: detention Do you feel safe at home: Yes Additional Social history: Meds Allergies and Home Medications Allergies Allergy/AdvReac Type Severity Reaction Status Date / Time Penicillins Allergy Intermediate rash Unverified 12/30/24 21:22 transparent dressing Allergy Mild rash Unverified 12/30/24 21:22 procaine (From Novocain) AdvReac Mild light Unverified 12/30/24 21:22 headed ativan Allergy Intermediate Unknown Uncoded 12/30/24 21:22 Home Medications ?Medication ?Instructions ?Recorded ?Confirmed ?Type acetaminophen 500 mg tablet 1,000 mg PO TID 08/13/23 12/30/24 History albuterol 90 mcg/actuation aerosol 108 mcg inhalation Q4H PRN PRN 08/13/23 12/30/24 History inhaler shortness of breath or wheezing alendronate 70 mg tablet 70 mg PO QWEEK 08/13/23 12/30/24 History aluminum-mag hydroxide-simethicone 10 ml PO Q6H PRN 08/13/23 12/30/24 History 400 mg-400 mg-40 mg/5 mL oral susp apixaban 5 mg tablet (Eliquis) 5 mg PO BID 08/13/23 12/30/24 History benzonatate 100 mg capsule 100 mg PO Q6H PRN 08/13/23 12/30/24 History bisacodyl 10 mg rectal suppository 10 mg MN DAILY PRN 08/13/23 12/30/24 History (Gentle Laxative (bisacodyl)) calcium 500 mg (as 1 tab PO BID 08/13/23 12/30/24 History carbonate)-vitamin D3 10 mcg (400 unit) tablet (Calcium 500 + D) calcium carbonate 550 mg chewable 1,100 mg PO DAILY PRN 08/13/23 12/30/24 History tablet clonazepam 0.5 mg tablet 0.5 mg PO TID 08/13/23 12/30/24 History clotrimazole 1 % topical cream 1 applic topical QAM AND QPM 08/13/23 12/30/24 History (Antifungal (clotrimazole)) diclofenac sodium 1 % topical gel 4 g topical Q12H PRN PRN pain 08/13/23 12/30/24 History dimethicone 1 %-zinc oxide 10 1 applic topical Q2H PRN PRN 08/13/23 12/30/24 History %-vit A and D-aloe vera topical rectal discomfort cream (Zinc Oxide Diaper Cream) diphenhydramine HCl 25 mg capsule 25 mg PO Q8H PRN 08/13/23 12/30/24 History (Allergy Medication) emollient combination no.69 1 applic topical Q12H PRN PRN dry 08/13/23 12/30/24 History (Eucerin Skin Calming cream) skin fluticasone 500 mcg-salmeterol 50 1 inh inhalation BID 08/13/23 12/30/24 History mcg/dose blistr powdr for inhalation (Advair Diskus) fluticasone propionate 50 1 spray intranasal DAILY 08/13/23 12/30/24 History mcg/actuation nasal spray,suspension (Flonase Allergy Relief) hydrocortisone 1 % topical cream 1 applic topical BID PRN 08/13/23 12/30/24 History (Preparation H Hydrocortisone) ibuprofen 600 mg tablet (IBU) 600 mg PO Q8H PRN PRN 08/13/23 12/30/24 History levothyroxine 125 mcg capsule 125 mcg PO DAILY 08/13/23 12/30/24 History lisinopril 40 mg tablet (Zestril) 40 mg PO HS 08/13/23 12/30/24 History loperamide 2 mg tablet 4 mg PO Q8H 08/13/23 12/30/24 History (Anti-Diarrheal (loperamide)) magnesium hydroxide 400 mg/5 mL 5 ml PO DAILY PRN 08/13/23 12/30/24 History oral suspension metoprolol succinate 50 mg capsule 50 mg PO DAILY 08/13/23 12/30/24 History sprinkle, ext. release 24 hr ondansetron 4 mg disintegrating 4 mg PO Q4H PRN PRN nausea and 08/13/23 12/30/24 History tablet vomiting oxymetazoline 0.05 % nasal mist 2 spray intranasal Q12H PRN nose 08/13/23 12/30/24 History (Afrin (oxymetazoline)) bleeds peg 400-propylene glycol 0.4 %-0.3 2 drp ophthalmic (eye) QID PRN 08/13/23 12/30/24 History % eye drops (Lubricant Eye (PG-PEG 400)) potassium chloride 20 mEq 20 meq PO DAILY 08/13/23 12/30/24 History tablet,extended release (K-Tab) ropinirole 0.25 mg tablet 0.5 mg PO QHS 08/13/23 12/30/24 History sertraline 25 mg tablet 200 mg PO DAILY 08/13/23 12/30/24 History sodium chloride 0.65 % nasal spray 2 spray intranasal BID PRN 08/13/23 12/30/24 History aerosol (Deep Sea Nasal) topiramate 50 mg tablet (Topamax) 25 mg PO DAILY 08/13/23 12/30/24 History topiramate 50 mg tablet (Topamax) 50 mg PO QHS 08/13/23 12/30/24 History triamcinolone acetonide 0.1 % 1 applic topical HS 08/13/23 12/30/24 History topical cream cholecalciferol (vitamin D3) 25 25 mcg PO DAILY #0 tabs 08/20/23 12/30/24 Rx mcg (1,000 unit) tablet polyethylene glycol 3350 17 gram 17 g PO DAILY PRN PRN Constipation 08/20/23 12/30/24 Rx oral powder packet #0 ea Exam Narrative Exam Narrative: General: Patient appears appropriate for age, morbidly obese, confused during conversation not sticking to topic and not answering questions appropriately during my interview. She was more appropriate in the ED according to ED provider. She is in no acute distress lying in bed at the point of pain. HEENT: Normocephalic, eyes with pupils equal and react to light symmetrically, extraocular move intact and sclera anicteric. Oropharynx with dry mucosa. Neck: Supple without JVD. Back: Kyphosis. No CVA tenderness. Lungs: Decreased aeration with occasional crackle bases without focalizing rales or rhonchi. No expiratory wheeze. Breast: Exam deferred. Heart: Regular rate and rhythm with no murmurs gallops appreciated. Abdomen: Obese contour, soft and nontender to palpation with no palpable hepatosplenomegaly. Bowel sounds positive all quadrants. Genitalia/rectal: Exam deferred. Extremities: Without clubbing, cyanosis or pitting edema having nonpitting edema both lower extremities. Fair capillary refill. Skin: Pale, warm and dry. Neuro: Cranial nerve II to XII gross intact, no focalized motor deficits or tremor. Slight increased tone but no cogwheeling. Psych: Flattened affect with mild delusions stating people were playing blackjack outside her room with some mild paranoid manifestation. Decreased short-term memory with grossly intact remote memory. Results Imaging Imaging Studies: EXAM: XR CHEST 2V PA LATERAL CLINICAL HISTORY: reports cough. TECHNIQUE: 2D digital imaging was performed. COMPARISON: CT CT ABDOMEN PELVIS W from 02/18/2023 CR XR CHEST 2V PA LATERAL from 11/24/2023 FINDINGS: 2 views: Heart size is upper normal. The mediastinum is not widened. Left hemidiaphragm is elevated and there is some infiltrate in the left lower lobe infrahilar region. Possible small amount left pleural fluid. Mild increased markings also noted in the right lower lobe. IMPRESSION: Left lower lobe infiltrate. Elevated left hemidiaphragm. Mild increased markings in the right lower lobe. Labs 12/31/24 06:10 12/30/24 23:45 Labs: Laboratory Results - last 24 hr 12/30/24 12/30/24 12/30/24 17:05 17:25 18:07 WBC 9.07 RBC 3.36 L Hgb 10.0 L Hct 31.1 L MCV 93 MCH 29.8 MCHC 32.2 RDW 14.6 Plt Count 145 MPV 9.9 Immature Gran % 0.0 Neutrophils % 94.0 Lymphocytes % 3.0 Monocytes % 2.0 Eosinophils % 1.0 Basophils % 0.0 Nucleated RBC % 0.0 Absolute Neutrophils 8.53 H Absolute Lymphocytes 0.27 L Absolute Monocytes 0.18 Absolute Eosinophils 0.09 Absolute Basophils 0.00 RBC Morphology Normal Sodium 136 Potassium 6.0 H* Chloride 102 Carbon Dioxide 22.7 Anion Gap 11.3 H BUN 93 H* Creatinine 5.1 H* Est GFR (CKD-EPI 2020) 8.26 Glucose 83 Calcium 8.9 Magnesium 1.9 Total Bilirubin 0.4 AST 39 H ALT 34 Alkaline Phosphatase 150 H Creatine Kinase 67 Troponin I 5 Total Protein 6.7 Albumin 2.4 L TSH 0.17 L Urine Color Yellow Urine Clarity Cloudy Urine pH 5.5 Ur Specific [place] 1.020 Urine Protein >=300 H Urine Ketones Negative Urine Blood Large H Urine Nitrite Negative Urine Bilirubin Negative Urine Urobilinogen 0.2 Ur Leukocyte Esterase Small H Urine RBC Negative Urine WBC >50 H Ur Epithelial Cells Negative Urine Crystals Negative Urine Bacteria Negative Urine Casts Negative Urine Mucus Negative Ur Culture Indicated? Yes Urine Glucose Negative COVID-19 Source Nasopharynx SARS-CoV-2 (PCR) Negative Influenza Type A (PCR) Negative Influenza Type B (PCR) Negative RSV (PCR) Negative Add-On Test Request Cancelled 12/30/24 20:10 WBC RBC Hgb Hct MCV MCH MCHC RDW Plt Count MPV Immature Gran % Neutrophils % Lymphocytes % Monocytes % Eosinophils % Basophils % Nucleated RBC % Absolute Neutrophils Absolute Lymphocytes Absolute Monocytes Absolute Eosinophils Absolute Basophils RBC Morphology Sodium 140 Potassium 5.0 D Chloride 106 Carbon Dioxide 21.4 Anion Gap 12.6 H BUN 90 H* Creatinine 5.0 H* Est GFR (CKD-EPI 2020) 8.46 Glucose 84 Calcium 8.2 L Magnesium Total Bilirubin AST ALT Alkaline Phosphatase Creatine Kinase Troponin I Total Protein Albumin TSH Urine Color Urine Clarity Urine pH Ur Specific [place] Urine Protein Urine Ketones Urine Blood Urine Nitrite Urine Bilirubin Urine Urobilinogen Ur Leukocyte Esterase Urine RBC Urine WBC Ur Epithelial Cells Urine Crystals Urine Bacteria Urine Casts Urine Mucus Ur Culture Indicated? Urine Glucose COVID-19 Source SARS-CoV-2 (PCR) Influenza Type A (PCR) Influenza Type B (PCR) RSV (PCR) Add-On Test Request Last Vital Signs Temp 36.7 C 12/30/24 16:50 Pulse 123 H 12/30/24 21:20 Resp 20 12/30/24 21:20 BP 131/90 12/30/24 21:16 Pulse Ox 92 12/30/24 21:20 Time Spent Time spent with Patient: >75 minutes Time was spent: preparing to see the patient(eg.review tests), obtaining and/or reviewing separately otained hiistory, ordering medications,tests, procedures, indepentently interpreting results and care coordination
[2024-12-31] VITALS (8 sets, daily range): BP systolic 114–146; BP diastolic 51–70; PULSE 83–112; RESP 14–22; TEMP 36.9–37.7; O2SAT 90–98
[2024-12-31 00:08] LABS: Anion Gap 12.4 mmol/L (3-11); CO2 21.6 mmol/L (21.0-32.0); Calcium 8.5 mg/dL (8.5-10.1); Chloride 106 mmol/L (98-107); Estimated GFR 8.67 (mL/min/1.73m2); Glucose 87 mg/dL (74-106); Potassium 5.3 mmol/L (3.5-5.1); Sodium 140 mmol/L (136-145)
[2024-12-31 00:10] LABS: BUN 86 mg/dL (7-18); CREATININE 4.9 mg/dL (0.55-1.02)
--- NOTE | 2024-12-31 01:04 | W.PC.ACHO ---
Registration Status: Primary Language: Preferred Language: ED Information & Data Chief Complaint AMS/LOC 12/30/24 16:59 Triage Note AMS for last three days. 12/30/24 16:37 Seeing stars in her vision. Normally ambulatory, non- weight bearing today. Medical / Surgical History (Last Reviewed 12/30/24 @ 22:09 by Roberto Singh) Pulmonary embolism DVT (deep venous thrombosis) Breast cancer, right (Last Reviewed 12/30/24 @ 22:09 by Roberto Singh) S/P breast reconstruction, right S/P right mastectomy Most Recent Vital Signs Temperature 37.2 C 12/31/24 00:15 Temperature Source Tympanic 12/31/24 00:15 Pulse 102 H 12/30/24 23:25 Pulse Rhythm Regular 12/31/24 00:21 Pulse 124 H 12/30/24 21:20 Respiratory Rate 22 12/31/24 00:15 Respiratory Effort Normal 12/31/24 00:21 Respiratory Depth Normal 12/31/24 00:21 Respiratory Pattern Normal 12/31/24 00:21 Blood Pressure 122/60 12/31/24 00:15 Blood Pressure Mean 102 12/30/24 21:16 Blood Pressure Position Supine 12/30/24 16:50 Pulse Oximetry 98 12/31/24 00:15 Oxygen Delivery Method Nasal Cannula 12/31/24 00:15 Oxygen Flow Rate 2 12/31/24 00:15 Comment pt baseline on RA, ED RN states=d patiet was placed on oxygen due to desating while sleeping. 12/31/24 00:15 Allergies Penicillins Allergy (Intermediate, Unverified 12/30/24 21:22) rash transparent dressing Allergy (Mild, Unverified 12/30/24 21:22) rash procaine (From Novocain) Adverse Reaction (Mild, Unverified 12/30/24 21:22) light headed ativan Allergy (Intermediate, Uncoded 12/30/24 21:22) Unknown Precautions Isolation Standard precaution 12/30/24 16:50 Active Medications Generic Name Dose Route Start Last Admin Trade Name Freq PRN Reason Stop Dose Admin Sodium Chloride 1,000 mls @ 150 mls/hr 12/30/24 21:00 12/30/24 20:56 Saline 1000ml Bag IV 150 mls/hr INFUSION FREDO Administration IV IV Catheter Type [Left Forearm Peripheral IV ] IV Catheter Gauge [Left 20 Forearm] Diet Orders Category Date Time Status Heart Healthy Eating [DIET] Nutrition 12/31/24 Breakfast Active Diagnostics 12/31/24 12/30/24 12/30/24 Range/Units 05:35 23:45 22:48 WBC Pending (4.4-10.8) 10^3/uL RBC Pending (3.93-5.22) 10^6/uL Hgb Pending (11.2-15.7) g/dL Hct Pending (36.0-46.0) % MCV Pending (80-95) fL MCH Pending (27.0-33.0) pg MCHC Pending (32.0-36.0) % RDW Pending (11.7-14.6) % Plt Count Pending (130-400) 10^3/uL MPV Pending (8.0-11.0) fL Immature Gran % % Neutrophils % % Lymphocytes % % Monocytes % % Eosinophils % % Basophils % % Nucleated RBC % (0.0-0.3) % Absolute Neutrophils (1.2-6.7) 10^3/uL Absolute Lymphocytes (1.2-3.4) 10^3/uL Absolute Monocytes (0.1-0.8) 10^3/uL Absolute Eosinophils (0.0-0.7) 10^3/uL Absolute Basophils (0.0-0.2) 10^3/uL RBC Morphology Sodium Pending 140 (136-145) mmol/L Potassium Pending 5.3 H (3.5-5.1) mmol/L Chloride Pending 106 (98-107) mmol/L Carbon Dioxide Pending 21.6 (21.0-32.0) mmol/L Anion Gap Pending 12.4 H (3-11) mmol/L BUN Pending 86 H* (7-18) mg/dL Creatinine Pending 4.9 H* (0.55-1.02) mg/dL Est GFR (CKD-EPI 2020) Pending 8.67 (mL/min/1.73m2) Glucose Pending 87 (74-106) mg/dL Calcium Pending 8.5 (8.5-10.1) mg/dL Magnesium Pending (1.8-2.4) mg/dL Total Bilirubin Pending (0.2-1.0) mg/dL AST Pending (15-37) U/L ALT Pending (14-59) U/L Alkaline Phosphatase Pending (46-116) U/L Creatine Kinase (26-192) U/L Troponin I (<or=51) ng/L Total Protein Pending (6.4-8.2) g/dL Albumin Pending (3.4-5.0) g/dL TSH (0.36-3.74) uIU/mL Free T4 Urine Color (Yellow) Urine Clarity (Clear) Urine pH (5-8) Ur Specific [place] (1.005-1.025) Urine Protein (Neg-Trace) mg/dL Urine Ketones (Negative) mg/dL Urine Blood (Negative) Urine Nitrite (Negative) Urine Bilirubin (Negative) Urine Urobilinogen (Up to 0.2) mg/dL Ur Leukocyte Esterase (Negative) Urine RBC (0-2) HPF Urine WBC (0-5) HPF Ur Epithelial Cells (Negative) HPF Urine Crystals (Negative) HPF Urine Bacteria (Negative) HPF Urine Casts (Negative) LPF Urine Mucus (Negative) Ur Culture Indicated? Urine Glucose (Negative) mg/dL COVID-19 Source Cancelled SARS-CoV-2 (PCR) Cancelled (Negative) Influenza Type A (PCR) Cancelled (Negative) Influenza Type B (PCR) Cancelled (Negative) RSV (PCR) Cancelled (Negative) Add-On Test Request 12/30/24 12/30/24 12/30/24 Range/Units 20:10 18:07 17:25 WBC (4.4-10.8) 10^3/uL RBC (3.93-5.22) 10^6/uL Hgb (11.2-15.7) g/dL Hct (36.0-46.0) % MCV (80-95) fL MCH (27.0-33.0) pg MCHC (32.0-36.0) % RDW (11.7-14.6) % Plt Count (130-400) 10^3/uL MPV (8.0-11.0) fL Immature Gran % % Neutrophils % % Lymphocytes % % Monocytes % % Eosinophils % % Basophils % % Nucleated RBC % (0.0-0.3) % Absolute Neutrophils (1.2-6.7) 10^3/uL Absolute Lymphocytes (1.2-3.4) 10^3/uL Absolute Monocytes (0.1-0.8) 10^3/uL Absolute Eosinophils (0.0-0.7) 10^3/uL Absolute Basophils (0.0-0.2) 10^3/uL RBC Morphology Sodium 140 (136-145) mmol/L Potassium 5.0 D (3.5-5.1) mmol/L Chloride 106 (98-107) mmol/L Carbon Dioxide 21.4 (21.0-32.0) mmol/L Anion Gap 12.6 H (3-11) mmol/L BUN 90 H* (7-18) mg/dL Creatinine 5.0 H* (0.55-1.02) mg/dL Est GFR (CKD-EPI 2020) 8.46 (mL/min/1.73m2) Glucose 84 (74-106) mg/dL Calcium 8.2 L (8.5-10.1) mg/dL Magnesium (1.8-2.4) mg/dL Total Bilirubin (0.2-1.0) mg/dL AST (15-37) U/L ALT (14-59) U/L Alkaline Phosphatase (46-116) U/L Creatine Kinase (26-192) U/L Troponin I (<or=51) ng/L Total Protein (6.4-8.2) g/dL Albumin (3.4-5.0) g/dL TSH (0.36-3.74) uIU/mL Free T4 Urine Color Yellow (Yellow) Urine Clarity Cloudy (Clear) Urine pH 5.5 (5-8) Ur Specific [place] 1.020 (1.005-1.025) Urine Protein >=300 H (Neg-Trace) mg/dL Urine Ketones Negative (Negative) mg/dL Urine Blood Large H (Negative) Urine Nitrite Negative (Negative) Urine Bilirubin Negative (Negative) Urine Urobilinogen 0.2 (Up to 0.2) mg/dL Ur Leukocyte Esterase Small H (Negative) Urine RBC Negative (0-2) HPF Urine WBC >50 H (0-5) HPF Ur Epithelial Cells Negative (Negative) HPF Urine Crystals Negative (Negative) HPF Urine Bacteria Negative (Negative) HPF Urine Casts Negative (Negative) LPF Urine Mucus Negative (Negative) Ur Culture Indicated? Yes Urine Glucose Negative (Negative) mg/dL COVID-19 Source SARS-CoV-2 (PCR) (Negative) Influenza Type A (PCR) (Negative) Influenza Type B (PCR) (Negative) RSV (PCR) (Negative) Add-On Test Request Cancelled 12/30/24 Range/Units 17:05 WBC 9.07 (4.4-10.8) 10^3/uL RBC 3.36 L (3.93-5.22) 10^6/uL Hgb 10.0 L (11.2-15.7) g/dL Hct 31.1 L (36.0-46.0) % MCV 93 (80-95) fL MCH 29.8 (27.0-33.0) pg MCHC 32.2 (32.0-36.0) % RDW 14.6 (11.7-14.6) % Plt Count 145 (130-400) 10^3/uL MPV 9.9 (8.0-11.0) fL Immature Gran % 0.0 % Neutrophils % 94.0 % Lymphocytes % 3.0 % Monocytes % 2.0 % Eosinophils % 1.0 % Basophils % 0.0 % Nucleated RBC % 0.0 (0.0-0.3) % Absolute Neutrophils 8.53 H (1.2-6.7) 10^3/uL Absolute Lymphocytes 0.27 L (1.2-3.4) 10^3/uL Absolute Monocytes 0.18 (0.1-0.8) 10^3/uL Absolute Eosinophils 0.09 (0.0-0.7) 10^3/uL Absolute Basophils 0.00 (0.0-0.2) 10^3/uL RBC Morphology Normal Sodium 136 (136-145) mmol/L Potassium 6.0 H* (3.5-5.1) mmol/L Chloride 102 (98-107) mmol/L Carbon Dioxide 22.7 (21.0-32.0) mmol/L Anion Gap 11.3 H (3-11) mmol/L BUN 93 H* (7-18) mg/dL Creatinine 5.1 H* (0.55-1.02) mg/dL Est GFR (CKD-EPI 2020) 8.26 (mL/min/1.73m2) Glucose 83 (74-106) mg/dL Calcium 8.9 (8.5-10.1) mg/dL Magnesium 1.9 (1.8-2.4) mg/dL Total Bilirubin 0.4 (0.2-1.0) mg/dL AST 39 H (15-37) U/L ALT 34 (14-59) U/L Alkaline Phosphatase 150 H (46-116) U/L Creatine Kinase 67 (26-192) U/L Troponin I 5 (<or=51) ng/L Total Protein 6.7 (6.4-8.2) g/dL Albumin 2.4 L (3.4-5.0) g/dL TSH 0.17 L (0.36-3.74) uIU/mL Free T4 Pending Urine Color (Yellow) Urine Clarity (Clear) Urine pH (5-8) Ur Specific [place] (1.005-1.025) Urine Protein (Neg-Trace) mg/dL Urine Ketones (Negative) mg/dL Urine Blood (Negative) Urine Nitrite (Negative) Urine Bilirubin (Negative) Urine Urobilinogen (Up to 0.2) mg/dL Ur Leukocyte Esterase (Negative) Urine RBC (0-2) HPF Urine WBC (0-5) HPF Ur Epithelial Cells (Negative) HPF Urine Crystals (Negative) HPF Urine Bacteria (Negative) HPF Urine Casts (Negative) LPF Urine Mucus (Negative) Ur Culture Indicated? Urine Glucose (Negative) mg/dL COVID-19 Source Nasopharynx SARS-CoV-2 (PCR) Negative (Negative) Influenza Type A (PCR) Negative (Negative) Influenza Type B (PCR) Negative (Negative) RSV (PCR) Negative (Negative) Add-On Test Request 12/30/24 17:25 Urine Culture - Pending Urine - Reflex from [facility] Documentation Fingerstick Glucose Start: 12/30/24 18:44 Freq: Status: Active Protocol: Activity Type Activity Date Activity User E-sign Co-sign Detail Recorded Client Recorded Date Recorded By Document 12/30/24 19:46 BKG DAEMON(3) [id number] 12/30/24 19:47 BKG DAEMON(4) Intake and Output - 24 Hour Total 12/30/24 16:31 thru 12/31/24 00:21 Intake Total 1300 Output Total 375 Balance 925 Weight 100.1 kg Intake: IV 1300 Output: Urine 375 Other: Urine Color Yellow Urine Appearance Clear Urinary Catheter Urinary Catheter Date of 12/30/24 Insertion [Urethral (Randolph)] Time of insertion [Urethral ( 19:00 Randolph)] Falls Risk Assessment History of Falls No History 12/31/24 00:21 Contributing Factors No Factors 12/31/24 00:21 Ambulatory Aids Independent 12/31/24 00:21 Tubes/Lines None 12/31/24 00:21 Gait Evaluation No gait disturbance 12/31/24 00:21 Cognition Cognitive impairment 12/31/24 00:21 Fall Total Score 15 12/31/24 00:21 Level of Risk Standard/Low Risk 12/31/24 00:21 Problems (Last Reviewed 12/30/24 @ 22:09 by Roberto Singh) Hypothyroidism (acquired) (Chronic) Acute kidney injury (Acute) Hyperkalemia (Acute) Pneumonia (Acute) Urinary tract infection (Acute) v v v v v v v v v Sending and/or Receiving Nurses: Please use comment section below to note any information pertinent to the patient hand-off not included above. Information / Comments: Alert and orientated, although confused. on 2L NC, not baseline. IVF running, randolph inserted. received IV antibiotics and IVP lasix[facility]. Report received from:
[2024-12-31] MEDS: Topiramate 50 MG TAB PO ×2 (04:26→20:21)
[2024-12-31] MEDS: Normal Saline 1,000 ML 150 ML IV (04:27)
[2024-12-31 07:02] LABS: HGB 9.1 g/dL (11.2-15.7); MCH 29.5 pg (27.0-33.0); MCHC 32.5 % (32.0-36.0); MCV 91 fL (80-95); MPV 10.4 fL (8.0-11.0); Platelet Count 125 10^3/uL (130-400); RBC 3.08 10^6/uL (3.93-5.22); RDW 14.7 % (11.7-14.6); RDW-SD 49.4 fL; WBC 7.41 10^3/uL (4.4-10.8)
[2024-12-31 07:23] LABS: ALT 22 U/L (14-59); AST 32 U/L (15-37); Alkaline Phosphatase 140 U/L (46-116); Anion Gap 12.2 mmol/L (3-11); Bilirubin, Total 0.3 mg/dL (0.2-1.0); CO2 20.8 mmol/L (21.0-32.0); Calcium 8.3 mg/dL (8.5-10.1); Chloride 106 mmol/L (98-107); Estimated GFR 9.35 (mL/min/1.73m2); Glucose 73 mg/dL (74-106); Magnesium 1.7 mg/dL (1.8-2.4); Potassium 5.1 mmol/L (3.5-5.1); Sodium 139 mmol/L (136-145); Total Protein 5.9 g/dL (6.4-8.2)
[2024-12-31 07:34] LABS: BUN 83 mg/dL (7-18); CREATININE 4.6 mg/dL (0.55-1.02)
[2024-12-31] MEDS: Budesonide/Formoterol 160/4.5 6 GM 60 PUFF INH IH ×2 (08:26→20:37)
[2024-12-31] MEDS: Sertraline 100 MG TAB 200 MG PO (08:52)
[2024-12-31] MEDS: clonazePAM 0.5 MG TAB PO ×3 (08:52→20:22)
[2024-12-31] MEDS: Calcium 600mg/Vit D 200U TAB 1 TAB PO ×2 (08:52→20:21)
[2024-12-31] MEDS: Cholecalciferol (Vitamin D3) 1,000 UNIT TAB 1000 UNITS PO (08:52)
[2024-12-31] MEDS: Metoprolol CR 50 MG TABCR PO (08:52)
[2024-12-31] MEDS: DOXYCYCLINE 100 MG in Normal Saline 100 ML IVPB ×2 (08:53→20:20)
[2024-12-31] MEDS: Apixaban 5 MG TAB PO ×2 (08:53→20:22)
--- NOTE | 2024-12-31 09:02 | INITIAL_ITS ---
Date of service: 12/31/24 Time of Service: 09:02 Care Management Initial Assmt Initial Assessment Reason for Hospitalization: UTI Functional Status/Living Situation Patient Presentation: Danica was awake and lying in bed when CM met with her. She is a resident at [facility] and was brought to the ER due to increased confusion. She was found to have a UTI and is admitted for IV fluids and abx. Conversation is limited, Danica is pleasant and answers yes to all questions, in a whispering tone. CM will continue to follow. Town of Residence: [facility] Resides with: Other (Resident at [facility]) Natural Supports: LTC resident at [facility]. Employment Status: Retired Instrumental Activities of Daily Living (ADLs): Requires support Medications Medication Management: No Issues/Barriers identified Physical Functioning/Mobility Assistive Device: Walker Advance Directives Advance Directives: Do you have an Advance Directive: N 03/21/13 16:12 AD On File at [facility]: N 03/21/13 16:12 Date Asked 12/30/24 12/30/24 07:59 AD Date Reviewed COLST On File at [facility] COLST Date Scanned Code Status Resuscitation Status Full Code Portal Pt does not currently have a portal and education provided: Yes Insurance Coverage/Financial Issues Insurance: Medicaid Medicare Care Team Visit Care Team Role Provider Type Abelino Damico MD MD [facility] STAFF PHYSICIAN Hernan Schmitt Primary Care Provider [facility] STAFF PHYSICIAN CORRY Thomason Emergency Provider [employer] Roberto Singh Admit Provider NON-[facility] STAFF PHYSICIAN Attending Provider Discharge Potential Discharge Needs: PCP F/U Appt Anticipated Barriers to Discharge: None Identified Patient/Family Education Needs: Review discharge instructions, discuss Ask Me Three Transportation: RCT ( ) RCT Transportation: Wheel chair van Plan: Danica is admitted to [facility] for SCOTTIE, dehydration and confusion. Anticipate, pt will discharge back to [facility] when medically ready for discharge. Pt will follow up with facility providers and her discharge plan of care as directed. Will transport via RCT W/C van if mobility allows. Social Determinants of Health Screening Will the Patient Participate in the Screening?: Unable to obtain PFSH All Active Problems Hypothyroidism (acquired) (Chronic) Acute kidney injury (Acute) Hyperkalemia (Acute) Pneumonia (Acute) Urinary tract infection (Acute) H/O deep venous thrombosis (Chronic) Wound of right lower extremity (Acute) Cellulitis of right lower extremity (Acute) Sepsis (Acute) COVID-19 (Acute) GERD (gastroesophageal reflux disease) (Chronic) IBS (irritable bowel syndrome) (Chronic) Restless legs syndrome (RLS) (Acute) Chronic back pain (Chronic) Ambulatory dysfunction (Chronic) Obesity (BMI 30.0-34.9) (Acute) Medical History Pulmonary embolism DVT (deep venous thrombosis) Breast cancer, right Surgical History S/P breast reconstruction, right S/P right mastectomy Family History Brother Diabetes Sister Diabetes Sister Hypertension Sister Hypertension Melanoma Other Adopted Social History Smoking/Tobacco Use Status: Never Smoking risk assessment performed?: Yes Alcohol Intake: current Alcohol Intake frequency: holidays/special occasions only Drug use: Never Adopted: Yes Housing: skilled nursing Do you feel safe at home: Yes Additional Social history:
[2024-12-31] MEDS: Acetaminophen 500 MG TAB 1000 MG PO ×3 (09:50→20:21)
[2024-12-31] MEDS: Fluticasone NASAL SPRAY 16 GM BTL NS (09:53)
--- NOTE | 2024-12-31 10:47 | W.PM.PROGNOT ---
Date of Service Date of service: 12/31/24 Time of Service: 10:47 Assessment and Plan Assessment and plan (1) Acute kidney injury: Status: Acute Assessment and plan: avoid nephrotoxic drugs, renal dosing (2) Hyperkalemia: Status: Acute Assessment and plan: Improving with IV hydration and Lasix. Monitor labs while hydrating. (3) Altered mental status: Status: Acute Assessment and plan: in setting of SCOTTIE, UTI and pneumonia reports she is normally A&O x3 with no confusion continue treatment for above safety precautions (4) Urinary tract infection: Status: Acute Assessment and plan: Continue Rocephin IV cultures pending (5) Pneumonia: Status: Acute Assessment and plan: IV doxycycline and ceftriaxone day 2/ converted to oral therapy once stable. (6) Pulmonary embolism: Assessment and plan: Continue outpatient Eliquis. (7) Hypothyroidism (acquired): Status: Chronic Assessment and plan: TSH is suppressed and may be over replaced at this time with reevaluation as an outpatient and hold Synthroid for now. discussed with DR Damico Objective Last Vital Signs Temp 37.1 C 12/31/24 07:31 Pulse 111 H 12/31/24 07:31 Resp 16 12/31/24 07:31 BP 140/66 12/31/24 07:31 Pulse Ox 93 12/31/24 07:31 Laboratory Results - last 24 hr 12/30/24 12/30/24 12/30/24 17:05 17:25 18:07 WBC 9.07 RBC 3.36 L Hgb 10.0 L Hct 31.1 L MCV 93 MCH 29.8 MCHC 32.2 RDW 14.6 Plt Count 145 MPV 9.9 Immature Gran % 0.0 Neutrophils % 94.0 Lymphocytes % 3.0 Monocytes % 2.0 Eosinophils % 1.0 Basophils % 0.0 Nucleated RBC % 0.0 Absolute Neutrophils 8.53 H Absolute Lymphocytes 0.27 L Absolute Monocytes 0.18 Absolute Eosinophils 0.09 Absolute Basophils 0.00 RBC Morphology Normal Sodium 136 Potassium 6.0 H* Chloride 102 Carbon Dioxide 22.7 Anion Gap 11.3 H BUN 93 H* Creatinine 5.1 H* Est GFR (CKD-EPI 2020) 8.26 Glucose 83 Calcium 8.9 Magnesium 1.9 Total Bilirubin 0.4 AST 39 H ALT 34 Alkaline Phosphatase 150 H Creatine Kinase 67 Troponin I 5 Total Protein 6.7 Albumin 2.4 L TSH 0.17 L Urine Color Yellow Urine Clarity Cloudy Urine pH 5.5 Ur Specific Rochelle 1.020 Urine Protein >=300 H Urine Ketones Negative Urine Blood Large H Urine Nitrite Negative Urine Bilirubin Negative Urine Urobilinogen 0.2 Ur Leukocyte Esterase Small H Urine RBC Negative Urine WBC >50 H Ur Epithelial Cells Negative Urine Crystals Negative Urine Bacteria Negative Urine Casts Negative Urine Mucus Negative Ur Culture Indicated? Yes Urine Glucose Negative COVID-19 Source Nasopharynx SARS-CoV-2 (PCR) Negative Influenza Type A (PCR) Negative Influenza Type B (PCR) Negative RSV (PCR) Negative Add-On Test Request Cancelled 12/30/24 12/30/24 12/30/24 20:10 22:48 23:45 WBC RBC Hgb Hct MCV MCH MCHC RDW Plt Count MPV Immature Gran % Neutrophils % Lymphocytes % Monocytes % Eosinophils % Basophils % Nucleated RBC % Absolute Neutrophils Absolute Lymphocytes Absolute Monocytes Absolute Eosinophils Absolute Basophils RBC Morphology Sodium 140 140 Potassium 5.0 D 5.3 H Chloride 106 106 Carbon Dioxide 21.4 21.6 Anion Gap 12.6 H 12.4 H BUN 90 H* 86 H* Creatinine 5.0 H* 4.9 H* Est GFR (CKD-EPI 2020) 8.46 8.67 Glucose 84 87 Calcium 8.2 L 8.5 Magnesium Total Bilirubin AST ALT Alkaline Phosphatase Creatine Kinase Troponin I Total Protein Albumin TSH Urine Color Urine Clarity Urine pH Ur Specific Rochelle Urine Protein Urine Ketones Urine Blood Urine Nitrite Urine Bilirubin Urine Urobilinogen Ur Leukocyte Esterase Urine RBC Urine WBC Ur Epithelial Cells Urine Crystals Urine Bacteria Urine Casts Urine Mucus Ur Culture Indicated? Urine Glucose COVID-19 Source Cancelled SARS-CoV-2 (PCR) Cancelled Influenza Type A (PCR) Cancelled Influenza Type B (PCR) Cancelled RSV (PCR) Cancelled Add-On Test Request 12/31/24 06:10 WBC 7.41 RBC 3.08 L Hgb 9.1 L Hct 28.0 L MCV 91 MCH 29.5 MCHC 32.5 RDW 14.7 H Plt Count 125 L MPV 10.4 Immature Gran % Neutrophils % Lymphocytes % Monocytes % Eosinophils % Basophils % Nucleated RBC % Absolute Neutrophils Absolute Lymphocytes Absolute Monocytes Absolute Eosinophils Absolute Basophils RBC Morphology Sodium 139 Potassium 5.1 Chloride 106 Carbon Dioxide 20.8 L Anion Gap 12.2 H BUN 83 H* Creatinine 4.6 H* Est GFR (CKD-EPI 2020) 9.35 Glucose 73 L Calcium 8.3 L Magnesium 1.7 L Total Bilirubin 0.3 AST 32 ALT 22 Alkaline Phosphatase 140 H Creatine Kinase Troponin I Total Protein 5.9 L Albumin 2.0 L TSH Urine Color Urine Clarity Urine pH Ur Specific Rochelle Urine Protein Urine Ketones Urine Blood Urine Nitrite Urine Bilirubin Urine Urobilinogen Ur Leukocyte Esterase Urine RBC Urine WBC Ur Epithelial Cells Urine Crystals Urine Bacteria Urine Casts Urine Mucus Ur Culture Indicated? Urine Glucose COVID-19 Source SARS-CoV-2 (PCR) Influenza Type A (PCR) Influenza Type B (PCR) RSV (PCR) Add-On Test Request Time Spent with Patient Time Spent with Patient: 35-49 minutes Time was spent: preparing to see the patient(eg.review tests), obtaining and/or reviewing separately otained hiistory, ordering medications,tests, procedures, indepentently interpreting results and counseling the patient
--- NOTE | 2024-12-31 11:11 | NUR.NOTE ---
patient is AxO to person and place this AM, reports chronic pain to back, heat pad applied and tylenol given. Pleasant and cooperative. Plan to d/c IVF and randolph today per NNEKA Salazar in MD rounds. Patient with decent appetite, VSS other than slight tachycardia. On IV Rocephin and doxycycline. Bed alarm on, call lu in reach, will continue to monitor for s/s of infection. Nursing Note:
[2024-12-31 16:35] LABS: T4, Free 1.6 ng/dL (0.8-2.2)
--- NOTE | 2024-12-31 16:39 | NUR.NOTE ---
patient now oriented to person place and time which is improvement from this AM. Still having conversations with herself and saying odd misplaced things in addition to misordering and misremembering events. Repositioned in bed for dinner, reports back pain has improved, using heat pad, denies further needs, has met DTV time post randolph removal. Call lu in reach, bed alarm on. Nursing Note:
[2024-12-31] MEDS: cefTRIAXone 1 GM/50 ML BAG IVPB (19:17)
[2024-12-31] MEDS: Triamcinolone 0.1% CR 15 GM TUBE TP (20:20)
[2024-12-31] MEDS: Polyethylene Glycol 3350 17 GM PACKET PO (20:20)
[2024-12-31] MEDS: Normal Saline Flush 10 ML SYR IVP (20:22)
[2024-12-31] MEDS: Docusate Sodium 100 MG CAP PO (20:22)
[2024-12-31] MEDS: rOPINIRole 0.5 MG TAB PO (20:22)
[2025-01-01] VITALS (8 sets, daily range): BP systolic 118–153; BP diastolic 46–70; PULSE 84–95; RESP 14–24; TEMP 36.5–37.9; O2SAT 91–94
[2025-01-01 07:32] LABS: HCT 26.8 % (36.0-46.0); HGB 8.8 g/dL (11.2-15.7); MCH 29.4 pg (27.0-33.0); MCHC 32.8 % (32.0-36.0); MCV 90 fL (80-95); RBC 2.99 10^6/uL (3.93-5.22); RDW 15.1 % (11.7-14.6); RDW-SD 50.4 fL; WBC 7.59 10^3/uL (4.4-10.8)
[2025-01-01 07:43] LABS: ALT 18 U/L (14-59); AST 30 U/L (15-37); Albumin 1.6 g/dL (3.4-5.0); Alkaline Phosphatase 150 U/L (46-116); BUN 73 mg/dL (7-18); Bilirubin, Total 0.5 mg/dL (0.2-1.0); Calcium 8.4 mg/dL (8.5-10.1); Chloride 107 mmol/L (98-107); Estimated GFR 10.74 (mL/min/1.73m2); Glucose 60 mg/dL (74-106); Magnesium 1.6 mg/dL (1.8-2.4); Potassium 5.1 mmol/L (3.5-5.1); Sodium 138 mmol/L (136-145); Total Protein 5.6 g/dL (6.4-8.2)
[2025-01-01 07:46] LABS: CREATININE 4.1 mg/dL (0.55-1.02)
[2025-01-01] MEDS: Calcium 600mg/Vit D 200U TAB 1 TAB PO ×2 (07:47→21:18)
[2025-01-01] MEDS: Sertraline 100 MG TAB 200 MG PO (07:47)
[2025-01-01] MEDS: Cholecalciferol (Vitamin D3) 1,000 UNIT TAB 1000 UNITS PO (07:47)
[2025-01-01] MEDS: Topiramate 25 MG TAB PO (07:48)
[2025-01-01] MEDS: clonazePAM 0.5 MG TAB PO ×3 (07:48→21:18)
[2025-01-01] MEDS: Apixaban 5 MG TAB PO ×2 (07:48→21:19)
[2025-01-01] MEDS: Acetaminophen 500 MG TAB 1000 MG PO ×3 (07:48→21:18)
[2025-01-01] MEDS: Metoprolol CR 50 MG TABCR PO (07:48)
[2025-01-01] MEDS: DOXYCYCLINE 100 MG in Normal Saline 100 ML IVPB ×2 (07:50→21:19)
[2025-01-01] MEDS: Fluticasone NASAL SPRAY 16 GM BTL NS (07:57)
[2025-01-01] MEDS: Normal Saline Flush 10 ML SYR IVP ×2 (08:05→21:21)
[2025-01-01] MEDS: Budesonide/Formoterol 160/4.5 6 GM 60 PUFF INH IH ×2 (08:49→21:18)
[2025-01-01] MEDS: MAGNESIUM SULFATE 1 GM/100 ML BAG IV_INF (10:54)
[2025-01-01 11:00] LABS: Platelet Count 106 10^3/uL (130-400)
--- NOTE | 2025-01-01 13:23 | NUR.NOTE ---
Documentation reviewed with Alvin Leos LPN student and I agree with findings. Nabila Hathaway, MSN, RNC-OB (clinical instructor) Nursing Note:
--- NOTE | 2025-01-01 13:26 | PDOC.CMPRO ---
Date of service: 01/01/25 Time of Service: 13:27 Care Management Progress Note Progress Note Text Progress Note Text: Danica was lying in bed, with the HOB elevated when CM met with her. She verbalizes to this assembly instructions writer that she is in the hospital and repeatedly asks if this is her room? CM clarified with patient that this is her room while she is in the hospital. CM retrieved the meal ticket sitting on her tray and showed her the room number that is written beside her name. She is satisfied and has further conversation with this assembly instructions writer without weeping. Discharge Anticipated Barriers to Discharge: Medical Status Patient/Family Education Needs: Review discharge instructions, discuss Ask Me Three Transportation: RCT Plan: Danica is admitted to [facility] for SCOTTIE, dehydration and confusion. Anticipate, pt will discharge back to [facility] when medically ready for discharge. Pt will follow up with facility providers and her discharge plan of care as directed. Will transport via RCT W/C van if mobility allows. Social Determinants of Health Screening Will the Patient Participate in the Screening?: Unable to obtain
--- NOTE | 2025-01-01 13:44 | NUR.NOTE ---
patient Axox4 this shift but with periods of intermittent confusion, unclear if etiology is UTI or hospital delirium related. Calm and cooperative, AM care completed, pannus redenned powder applied, pt visiting with friend at this time, VSS, on room air, previously received IV Mg replacement this AM, Cr improvement to 4.1 nursing to continue to encourage PO intake. Pt to return to [facility] and rehab once improved. Denies pain or needs, bed low/locked, call lu in reach. Nursing Note:
--- NOTE | 2025-01-01 17:32 | NUR.NOTE ---
patient resting in bed eating dinner, recent incontinent episode and brief changed, pt repositioned, refused for second time in shift to get OOBTC. Pt is in wheelchair at longterm normally per her friend's report who works at the rehab. Patient's VSS, denies pain. Call lu in reach, bed low/locked. Nursing Note:
[2025-01-01] MEDS: cefTRIAXone 1 GM/50 ML BAG IVPB (17:40)
--- NOTE | 2025-01-01 17:48 | W.PM.PROGNOT ---
Date of Service Date of service: 01/01/25 Time of Service: 14:20 Assessment and Plan Assessment and plan (1) Acute kidney injury: Status: Acute Assessment and plan: avoid nephrotoxic drugs, renal dosing (2) Hyperkalemia: Status: Resolved Assessment and plan: Resolved, continue Lasix. Monitor labs (3) Altered mental status: Status: Acute Assessment and plan: in setting of SCOTTIE, UTI and pneumonia reports she is normally A&O x3 with no confusion continue treatment for above safety precautions (4) Urinary tract infection: Status: Acute Assessment and plan: Continue Rocephin IV cultures pending (5) Pneumonia: Status: Acute Assessment and plan: IV doxycycline and ceftriaxone day 3/5 converted to oral therapy once stable. (6) Pulmonary embolism: Assessment and plan: Continue outpatient Eliquis. (7) Hypothyroidism (acquired): Status: Chronic Assessment and plan: TSH is suppressed and may be over replaced at this time with reevaluation as an outpatient and hold Synthroid for now. discussed with DR Hines (8) Hypomagnesemia: Status: Acute Assessment and plan: 1.6 Subjective Subjective Patient reports: no new complaints, pain is less, tolerating liquids well, tolerating a regular diet, voiding w/o difficulty, bowel movement and afebrile; denies flatus, diarrhea, nausea, vomiting or shortness of breath Exam Narrative Exam Narrative: General: Pleasant elderly female who is quite talkative Neurological: A&Ox3, no obvious focal deficits Psychiatric: Anxious, somewhat tangential historian Skin:no rashes, no lesions HEENT: Atraumatic, normocephalic, EOMI, MMM, clear oropharynx, no submandibular or cervical lymphadenopathy, no goiter or JVD Cardiovascular: RRR, no m/r/g Lungs: CTAB Gastrointestinal: soft, nontender, nondistended Genitourinary: deferred Extremities: trace edema RLE, trace edema LLE, 2+ pedal pulses B Objective Last Vital Signs Temp 36.9 C 01/01/25 15:41 Pulse 86 01/01/25 15:41 Resp 19 01/01/25 15:41 BP 138/53 L 01/01/25 15:41 Pulse Ox 92 01/01/25 15:41 Laboratory Results - last 24 hr 12/30/24 01/01/25 01/01/25 17:05 06:08 10:55 WBC 7.59 RBC 2.99 L Hgb 8.8 L Hct 26.8 L MCV 90 MCH 29.4 MCHC 32.8 RDW 15.1 H Plt Count 106 L MPV Sodium 138 Potassium 5.1 Chloride 107 Carbon Dioxide 20.0 L Anion Gap 11.0 BUN 73 H Creatinine 4.1 H* Est GFR (CKD-EPI 2020) 10.74 Glucose 60 L Calcium 8.4 L Magnesium 1.6 L Total Bilirubin 0.5 AST 30 ALT 18 Alkaline Phosphatase 150 H Total Protein 5.6 L Albumin 1.6 L Free T4 1.6 Time Spent with Patient Time Spent with Patient: 25-34 minutes Time was spent: preparing to see the patient(eg.review tests), ordering medications,tests, procedures, referring, communicating with other health child care centre manager, indepentently interpreting results, counseling the patient and care coordination
[2025-01-01] MEDS: Topiramate 50 MG TAB PO (21:18)
[2025-01-01] MEDS: rOPINIRole 0.5 MG TAB PO (21:18)
[2025-01-01] MEDS: Triamcinolone 0.1% CR 15 GM TUBE TP (21:20)
[2025-01-02 03:11] VITALS: BP 161/67; PULSE 89; RESP 19; TEMP 37.1; O2SAT 93
[2025-01-02 06:53] LABS: HCT 28.7 % (36.0-46.0); HGB 9.7 g/dL (11.2-15.7); MCHC 33.8 % (32.0-36.0); MCV 89 fL (80-95); MPV 10.4 fL (8.0-11.0); Platelet Count 140 10^3/uL (130-400); RBC 3.23 10^6/uL (3.93-5.22); RDW 15.2 % (11.7-14.6); WBC 11.75 10^3/uL (4.4-10.8)
[2025-01-02 07:23] LABS: ALT 17 U/L (14-59); AST 19 U/L (15-37); Albumin 1.8 g/dL (3.4-5.0); Alkaline Phosphatase 152 U/L (46-116); Anion Gap 8.9 mmol/L (3-11); BUN 72 mg/dL (7-18); Bilirubin, Total 0.5 mg/dL (0.2-1.0); CO2 23.1 mmol/L (21.0-32.0); CREATININE 3.3 mg/dL (0.55-1.02); Calcium 8.9 mg/dL (8.5-10.1); Chloride 107 mmol/L (98-107); Estimated GFR 13.93 (mL/min/1.73m2); Glucose 56 mg/dL (74-106); Magnesium 1.9 mg/dL (1.8-2.4); Potassium 4.3 mmol/L (3.5-5.1); Sodium 139 mmol/L (136-145); Total Protein 6.3 g/dL (6.4-8.2)
[2025-01-02 07:35] VITALS: BP 155/64; PULSE 94; RESP 18; TEMP 37.4; O2SAT 94
[2025-01-02 07:43] VITALS: BP 152/75
[2025-01-02] MEDS: Budesonide/Formoterol 160/4.5 6 GM 60 PUFF INH IH (07:56)
[2025-01-02] MEDS: clonazePAM 0.5 MG TAB PO ×2 (08:11→13:15)
[2025-01-02] MEDS: Calcium 600mg/Vit D 200U TAB 1 TAB PO (08:11)
[2025-01-02] MEDS: Apixaban 5 MG TAB PO (08:12)
[2025-01-02] MEDS: Cholecalciferol (Vitamin D3) 1,000 UNIT TAB 1000 UNITS PO (08:12)
[2025-01-02] MEDS: Sertraline 100 MG TAB 200 MG PO (08:12)
[2025-01-02] MEDS: Topiramate 25 MG TAB PO (08:12)
[2025-01-02] MEDS: Acetaminophen 500 MG TAB 1000 MG PO ×2 (08:12→13:15)
[2025-01-02] MEDS: Metoprolol CR 50 MG TABCR PO (08:12)
[2025-01-02] MEDS: Fluticasone NASAL SPRAY 16 GM BTL NS (08:14)
--- NOTE | 2025-01-02 10:12 | NUR.NOTE ---
patient AxOx4 this shift but still seems to have intermittent confusion and odd conversations at times. Spoke with Madison RN at [facility] and rehab who states pt is normally very with it and witty. Also states pt's baseline for mobility is a stand and pivot to the wheelchair and she is used to staying in her recliner all the time. Will discuss PT consult in rounds and told the patient this afternoon we need to prioritize getting OOBTC. Pt given pain meds this AM for chronic back pain which seems to have resolved. Resting in bed with bed alarm on, call lu in reach, bed low/locked. Nursing Note:
[2025-01-02] MEDS: Normal Saline Flush 10 ML SYR IVP (10:15)
[2025-01-02] MEDS: DOXYCYCLINE 100 MG in Normal Saline 100 ML IVPB (10:17)
[2025-01-02] MEDS: Polyethylene Glycol 3350 17 GM PACKET PO (11:08)
[2025-01-02] MEDS: Docusate Sodium 100 MG CAP PO (11:08)
[2025-01-02 11:17] VITALS: BP 142/84; PULSE 85; RESP 18; TEMP 36.6; O2SAT 94
--- NOTE | 2025-01-02 13:22 | PT.INIE ---
PT Notes Visit Reasons: SCOTTIE, UTI, Hyperkalemia, Pneumonia Physical Therapy Inpatient Initial Evaluation Date: 01/02/2025 Referring Doctor: Alicia Rothman NP PT Orders: PT CONSULT: Eval/Treat Precautions: Fall. Wheelchair-bound for over 22 years. Patient Profile/Admitting Diagnosis: Danica is a 74-year-old female admitted for management of SCOTTIE, hyperkalemia, UTI, PNA, PE (currently on Eliquis), and hypothyroidism. PMHX: All Active Problems Hypothyroidism (acquired) (Chronic) Acute kidney injury (Acute) Hyperkalemia (Acute) Pneumonia (Acute) Urinary tract infection (Acute) H/O deep venous thrombosis (Chronic) Wound of right lower extremity (Acute) Cellulitis of right lower extremity (Acute) Sepsis (Acute) COVID-19 (Acute) GERD (gastroesophageal reflux disease) (Chronic) IBS (irritable bowel syndrome) (Chronic) Restless legs syndrome (RLS) (Acute) Chronic back pain (Chronic) Ambulatory dysfunction (Chronic) Obesity (BMI 30.0-34.9) (Acute) Medical History Pulmonary embolism DVT (deep venous thrombosis) Breast cancer, right Surgical History S/P breast reconstruction, right S/P right mastectomy Social History/Home Situation: SNF resident. Mechanical lift for all transfers. Main mobility is through use of B feet while on wheelchair, rarely uses wheels/handrims. Equipment Owned/DME: SNF resident for over three years now Subjective: That transfer earlier with the alexandria was exhausting, I feel so tired right now Objective: General Observation: Seated on chair. High BMI. Mental Status: Alert and oriented as to person, place, time, and purpose. Able to pay attention, focus, and respond appropriately. Pain: None reported Vital Signs: Closely monitored by nursing staff ROM: Right Upper Extremity: Shoulder Flexion WFL. Shoulder abduction WFL. Elbow flexion WFL. Wrist flexion WFL. Functional opening and closing of hand WFL. Left Upper Extremity: Shoulder Flexion WFL. Shoulder abduction WFL. Elbow flexion WFL. Wrist flexion WFL. Functional opening and closing of hand WFL. Right Lower Extremity: Hip flexion up to 60 degrees. Hip abduction WFL. Knee flexion 10 degrees to 90 degrees. Ankle dorsiflexion WFL. Ankle plantarflexion WFL. Left Lower Extremity: Hip flexion up to 60 degrees. Hip abduction WFL. Knee flexion 20 degrees to 90 degrees. Ankle dorsiflexion WFL. Ankle plantarflexion WFL. Strength: Right Upper Extremity: Shoulder flexors 4-/5. Shoulder abductors 4-/5. Elbow flexors 4-/5. Elbow extensors 4-/5. Stained Glass Glazier Helper strong. Left Upper Extremity: Shoulder flexors 4-/5. Shoulder abductors 4-/5. Elbow flexors 4-/5. Elbow extensors 4-/5. Stained Glass Glazier Helper strong. Right Lower Extremity: Hip flexors 3-/5. Hip abductors 3-/5. Knee flexors 3-/5. Knee extensors 3-/5. Ankle dorsiflexors 4-/5. Ankle plantarflexors 4-/5. Left Lower Extremity: Hip flexors 3-/5. Hip abductors 3-/5. Knee flexors 3-/5. Knee extensors 3-/5. Ankle dorsiflexors 4-/5. Ankle plantarflexors 4-/5. Bed Mobility/Transfers: Roll moderate assist of 2 Supine to sit moderate assist of 2 Sit to supine moderate assist of 2 Gait: Not applicable. Patient wheelchair-bound. Balance: Static Sitting: Fair Dynamic Sitting: Poor Static Standing: Not applicable Dynamic Standing: Not applicable Special Tests: Mobility Limitations Standardized Measure [facility] AM-PAC 6 clicks Basic Mobility Inpatient Short Form: Raw Score: 8 CMS Score: 87% deficit Informed Consent/Education: Patient was instructed in purpose of PT consult and plan of care. Agreeable to proceed with established PT POC to achieve personal goals. Highly anxiis about moving at this time. THERA EX: Patient demonstrated ability to perform exercises below with supervision of PT -Ankle knee to chest L LE only x 10 -Partial LAQs x 5 -Ankle Df/PF x 5 ASSESSMENT: Has been non-ambulatory since she was a resident at the SNF. Wheelchair has been the main mode of mobility for the past 3 years now. Transfers bed<>wc using the mechanical lift. Patient presents with clinical signs and symptoms consistent with current/admitting diagnoses that have resulted to mobility limitations, gait instability, generalized weakness, and overall ADL decline as demonstrated by the following impairment level findings: 1. Decreased strength to B UE/LE major muscle groups 2. Impaired sitting balance 3. Impaired activity tolerance 4. Limitation of joint range of motion in B knees wit flexion contracture of 20 degrees L and 10 degrees L Impairments are contributing to the following functional limitations: 1. Decline in bed mobility skills 2. Decline in transfer skills 3. Increased risk for falls 4. Increased risk for skin breakdown Patient is assessed as a [id number] high complexity based on the following: History: 72-year-old female with past medical history as indicated above Examination: Demonstrable impairment in strength, balance, and mobility level with underlying impairments and functional limitations as exhibited above as well as deficit score of 87% udeficit tilizing the [facility] Mobility Inpatient Short Form Presentation: Evolving Decision Makin high complexity Goals: Goals X1 week 1. Patient will increase ability to roll to R and L while pulling on bed rail for efficient morning care performance by nursing staff and for effective pressure relief. 2. Patient will demonstrate 100% mastery of bed level exercises in order o fredo lazar flexibility and strength. Plan of Care/Treatment Plan: 1x/day, 3 days/week x 2 weeks. Plan of care has been reviewed with the [employer] ARCHITECT providing the service under Physical Therapy direction. Initiate Physical Therapy intervention for pain management as needed, strengthening, bed mobility, transfers, and use of assistive device. DISCHARGE RECOMMENDATIONS: [] Home with no services [] [] Home with services [specify] [] Home with outpatient PT [] [] SNF for continued rehabilitation [] [] Coordinator Of Online Programs Care [] [] SNF versus LTC based on ability to participate and progress [] [X] Return to SNF when medically cleared TREATMENT CODE/TIME: 22510 x 25 minutes for 1 unit (13:22-13:45). Thank you for the opportunity to participate in the care of this patient. Marci Saul PT, DPT, CLT [facility] [place], [place]
--- NOTE | 2025-01-02 14:13 | CMDISCH_ITS ---
Date of service: 01/02/25 Time of Service: 14:14 LACE Index Scoring Tool Questions: Length of Stay (in days): 3 Was the patient admitted via the E.D.?: Yes E.D. Visits: 0 Answers: Total Score: 6 Risk of Readmission: Low Risk Care Management Discharge Plan Reason for Hospitalization: SCOTTIE, UTI, hyperkalemia, pneumonia Discharge Plan: Emma will return to [facility] today, where she resides. CM coordinated with staff at the facility, and informed Concepción, hospitality director. Pat transported via EMS, per PT recommendation. She will follow up with her PCP and discharge plan of care. She was happy to be returning. Patient/Family Education Needs: Review discharge instructions and limitations, discussion of self care needs including ask me three. Services Needed at Discharge: [facility] Facility ([facility]) and Transportation (EMS, [place]) [facility] Health Related Social Needs: No Data to Display
--- NOTE | 2025-01-02 14:29 | DSE_ITS ---
Date of service: 01/02/25 Time of Service: 14:30 DS: Diagnosis Discharge Diagnosis (1) Acute kidney injury: Status: Acute (2) Hyperkalemia: Status: Resolved (3) Altered mental status: Status: Acute (4) Urinary tract infection: Status: Acute (5) Pneumonia: Status: Acute (6) Pulmonary embolism: (7) Hypothyroidism (acquired): Status: Chronic (8) Hypomagnesemia: Status: Acute Discharge Plan Disposition Patient Disposition: Detention Facility(SNF) Condition: Improving Discharge Details Reason For Visit: SCOTTIE, UTI, Hyperkalemia, Pneumonia Admit Date/Time: 12/30/24 22:48 Admit Provider: Roberto Singh Attending Provider: Roberto Singh Primary Care Provider: Hernan Schmitt Hospital Course Hospital Course: This is a 74 year old patient who resides in a local senior living and recently exhibited increased confusion. This prompted referral to the emergency department for evaluation. She had increased weakness, was unable to ambulate, and had chronic back pain that was stable. The patient reported visual changes (seeing stars) which were not corroborated by her roommate. She also had a cough and fever while at the senior living, but influenza, COVID, and RSV screening in the ED were negative. A chest x-ray showed some infiltrates in the lower lung hernadez, suggesting early pneumonia. Given her decreased intake and confusion, and dehydration, she had SCOTTIE . She was treated with intravenous resuscitation and required Lasix to initiate urine output. Initial lab work revealed marked elevation of her creatinine 5.1 improved to 3.3, potassium 6.0, normalized to 4.3, She was started on IV antibiotics (Rocephin and Zithromax) for presumed UTI and pneumonia based on imaging. Continue doxycycline for 5 days; start cefpodoxime renal dosing 200 mg daily for 7 days. Recommend BMP in 3 days to assure renal function continues to improve and electrolytes maintain balance. Home Meds and New Rx's Prescriptions: New cefpodoxime 200 mg tablet 200 mg PO DAILY Qty: 7 0RF Rx Instructions: must administer with a meal/food doxycycline hyclate 100 mg capsule 100 mg PO BID Qty: 10 0RF Continued ondansetron 4 mg tablet,disintegrating 4 mg PO Q4H PRN PRN (Reason: nausea and vomiting) topiramate [Topamax] 50 mg tablet 25 mg PO DAILY sertraline 25 mg tablet 200 mg PO DAILY Lubricant Eye (PG-PEG 400) 0.4-0.3 % drops 2 drp ophthalmic (eye) QID PRN Patient Comments: 2 drops Bilat eye 4x/day PRN benzonatate 100 mg capsule 100 mg PO Q6H PRN topiramate [Topamax] 50 mg tablet 50 mg PO QHS potassium chloride [K-Tab] 20 mEq tablet extended release 20 meq PO DAILY hydrocortisone [Preparation H Hydrocortisone] 1 % cream 1 applic topical BID PRN ropinirole 0.25 mg tablet 0.5 mg PO QHS calcium carbonate 550 mg tablet,chewable 1,100 mg PO DAILY PRN Deep Sea Nasal 0.65 % aerosol,spray 2 spray intranasal BID PRN clonazepam 0.5 mg tablet 0.5 mg PO TID clotrimazole [Antifungal (clotrimazole)] 1 % cream 1 applic topical QAM AND QPM diphenhydramine HCl [Allergy Medication] 25 mg capsule 25 mg PO Q8H PRN diclofenac sodium 1 % gel 4 g topical Q12H PRN PRN (Reason: pain) Rx Instructions: apply to single knee, ankle, foot; for foot includes sole/toes/top of foot bisacodyl [Gentle Laxative (bisacodyl)] 10 mg suppository 10 mg MS DAILY PRN Eliquis 5 mg tablet 5 mg PO BID fluticasone propionate [Flonase Allergy Relief] 50 mcg/actuation spray,suspension 1 spray intranasal DAILY Rx Instructions: administer into each nostril ibuprofen [IBU] 600 mg tablet 600 mg PO Q8H PRN PRN levothyroxine 125 mcg capsule 125 mcg PO DAILY lisinopril [Zestril] 40 mg tablet 40 mg PO HS loperamide [Anti-Diarrheal (loperamide)] 2 mg tablet 4 mg PO Q8H metoprolol succinate 50 mg capsule,sprinkle,ER 24hr 50 mg PO DAILY magnesium hydroxide 400 mg/5 mL suspension 5 ml PO DAILY PRN acetaminophen 500 mg tablet 1,000 mg PO TID fluticasone propion-salmeterol [Advair Diskus] 500-50 mcg/dose blister with device 1 inh inhalation BID Afrin (oxymetazoline) 0.05 % mist 2 spray intranasal Q12H PRN (Reason: nose bleeds) albuterol 90 mcg/actuation aerosol 108 mcg inhalation Q4H PRN PRN (Reason: shortness of breath or wheezing) alendronate 70 mg tablet 70 mg PO QWEEK Rx Instructions: every Wednesday calcium carbonate-vitamin D3 [Calcium 500 + D] 500 mg-10 mcg (400 unit) tablet 1 tab PO BID Eucerin Skin Calming Cream 1 applic topical Q12H PRN PRN (Reason: dry skin) alum-mag hydroxide-simeth 400-400-40 mg/5 mL suspension 10 ml PO Q6H PRN Zinc Oxide Diaper Cream 1-10 % cream 1 applic topical Q2H PRN PRN (Reason: rectal discomfort) triamcinolone acetonide 0.1 % cream 1 applic topical HS cholecalciferol (vitamin D3) 25 mcg (1,000 unit) Tablet 25 mcg PO DAILY Qty: 0 0RF polyethylene glycol 3350 17 gram Powder In Packet 17 g PO DAILY PRN PRN (Reason: Constipation) Qty: 0 0RF Discharge Instructions Additional Instructions: Cefpodoxime 200 mg daily for 7d (renal dose) Doxycycline 100 mg twice a day for 5d Recommend BMP to check electrolytes and renal function on 01/04/25 Continue meds and diet at [facility] prior to hospitalization Activity:: Activity as Tolerated Equipment/Supplies:: No Equipment Needed Diet:: as previously ordered Discharge Orders Discharge Orders: Discharge Order (Routine); Ordered 01/02/25 Ordered By: Alicia Rothman Other Ambulatory Orders: Basic Metabolic Panel (Routine) Timeframe: 3 Days Facility: [facility] - Location: Laboratory Outpatient - [facility] Ordered By: Alicia Rothman DS: Summary Time Spent with Patient providing and/or coordinating discharge services: Greater than 30 minutes Status at Discharge Functional status at discharge: bed bound Overall status at discharge: patient is back to baseline Mental Status: mental status grossly normal Speech and Movement: speech and movement normal Mood: congruent mood Affect: normal affect Quality:SDOH Health Related Social Needs: No Data to Display Exam Narrative Exam Narrative: General: Pleasant elderly female who is quite talkative Neurological: A&Ox3, no obvious focal deficits Psychiatric: Anxious, somewhat tangential historian Skin:no rashes, no lesions HEENT: Atraumatic, normocephalic, EOMI, MMM, clear oropharynx, no submandibular or cervical lymphadenopathy, no goiter or JVD Cardiovascular: RRR, no m/r/g Lungs: CTAB Gastrointestinal: soft, nontender, nondistended Genitourinary: deferred Extremities: trace edema RLE, trace edema LLE, 2+ pedal pulses B Psych Mental Status: mental status grossly normal Speech and Movement: speech and movement normal Mood: congruent mood Affect: normal affect DS: Data Vitals/I&O Vitals and I&O: Vital Signs Temperature 36.6 C 01/02/25 11:17 Temperature Source Temporal Artery Scan 01/02/25 11:17 Pulse 85 01/02/25 11:17 Pulse Rhythm Regular 12/31/24 00:21 Pulse 124 H 12/30/24 21:20 Respiratory Rate 18 01/02/25 11:17 Respiratory Effort Normal 12/31/24 00:21 Respiratory Depth Normal 12/31/24 00:21 Respiratory Pattern Normal 12/31/24 00:21 Blood Pressure 142/84 H 01/02/25 11:17 Blood Pressure Mean 102 12/30/24 21:16 Blood Pressure Position Supine 12/30/24 16:50 Pulse Oximetry 94 01/02/25 11:17 Oxygen Delivery Method Room Air 01/02/25 11:17 Oxygen Flow Rate 0 01/02/25 11:17 Pain Level 8 01/02/25 13:15 Comment 9/10 pain in the lower back 01/02/25 07:35 Intake & Output 01/01/25 01/02/25 01/02/25 23:59 11:59 23:59 Intake Total 660 / 1740 100 / 100 Balance 660 / 1740 100 / 100 Weight 94.9 kg Intake: IV 200 / 300 100 / 100 Oral 460 / 1440 Other: Urine Color Yellow Yellow Yellow Urine Appearance Clear Clear Urine Odor Normal None Comment x1 gross urine in brief pT checked for incontinence, was dry at this time. unmeasurable, voided into commode. Data Completed and Pending Labs on day of discharge: Labs from last 24 hours 01/02/25 06:00 WBC 11.75 H RBC 3.23 L Hgb 9.7 L Hct 28.7 L MCV 89 MCH 30.0 MCHC 33.8 RDW 15.2 H Plt Count 140 MPV 10.4 Sodium 139 Potassium 4.3 Chloride 107 Carbon Dioxide 23.1 Anion Gap 8.9 BUN 72 H Creatinine 3.3 H Est GFR (CKD-EPI 2020) 13.93 Glucose 56 L Calcium 8.9 Magnesium 1.9 Total Bilirubin 0.5 AST 19 ALT 17 Alkaline Phosphatase 152 H Total Protein 6.3 L Albumin 1.8 L PFSH All Active Problems (Updated 01/02/25 @ 13:28 by Alicia Rothman NP) Hypomagnesemia (Acute) Altered mental status (Acute) Hypothyroidism (acquired) (Chronic) Acute kidney injury (Acute) Pneumonia (Acute) Urinary tract infection (Acute) H/O deep venous thrombosis (Chronic) Wound of right lower extremity (Acute) Cellulitis of right lower extremity (Acute) Sepsis (Acute) COVID-19 (Acute) GERD (gastroesophageal reflux disease) (Chronic) IBS (irritable bowel syndrome) (Chronic) Restless legs syndrome (RLS) (Acute) Chronic back pain (Chronic) Ambulatory dysfunction (Chronic) Obesity (BMI 30.0-34.9) (Acute) Medical History Pulmonary embolism DVT (deep venous thrombosis) Breast cancer, right Surgical History S/P breast reconstruction, right S/P right mastectomy Family History Brother Diabetes Sister Diabetes Sister Hypertension Sister Hypertension Melanoma Other Adopted Social History Smoking/Tobacco Use Status: Never Smoking risk assessment performed?: Yes Alcohol Intake: current Alcohol Intake frequency: holidays/special occasions only Drug use: Never Adopted: Yes Housing: senior living Do you feel safe at home: Yes Additional Social history: Time Spent with Patient Time Spent with Patient: 45-69 minutes Time was spent: preparing to see the patient(eg.review tests), ordering medications,tests, procedures, referring, communicating with other health dog day care attendant, indepentently interpreting results, counseling the patient and care coordination
[2025-01-02 15:05] VITALS: BP 133/80; PULSE 82; RESP 16; TEMP 37.5; O2SAT 95
--- NOTE | 2025-01-02 15:05 | NUR.NOTE ---
Report called to [facility] and report given to PAUL Wallace removed by Betty GONCALVES. Pt resting in bed pending transport. Nursing Note:
--- NOTE | 2025-01-02 15:19 | CHAPLAIN ---
Danica was up in the chair when I visited. She told me that she lives at [facility], although she couldn't remember the name of the place. The new owners are trying to make some improvements and she said many patients just want to complain. Danica shared some personal history, telling me about being adopted and then finding that out as an adult and locating her biological family. Most recently Danica lived in [place] with her , Thee. He was moved to [facility] and eventually she was too. She said they enjoyed living there together. Thee over two years ago. Danica also had a close friend, Paula, at [facility], and she a few months ago. A UTI and confusion brought her to [facility]. Danica said she remains optimistic and is grateful for having God in her life.
--- NOTE | 2025-01-02 16:05 | NUR.NOTE ---
patient left via stretcher with EMS at 1540, PIV previously removed, all belongings with pt, pt aware she is going back to [facility] and rehab. Nursing Note:
== END 2025-01-02 15:40 | disposition skilled nursing facility (03) | DRG 682 ==
LOC: ER 22:53 → MS 23:32
PROVIDERS: Family Medicine; Admitting Provider Family Medicine; Emergency Provider Physician Assistant; PCP Family Medicine; Responsible Provider Nurse Practitioner Family; Visit Provider Family Medicine
DX: N17.9 Acute kidney failure, unspecified (principal); J18.9 Pneumonia, unspecified organism; I27.82 Chronic pulmonary embolism; N30.01 Acute cystitis with hematuria; E87.5 Hyperkalemia; E03.9 Hypothyroidism, unspecified; E83.42 Hypomagnesemia; R41.82 Altered mental status, unspecified; R53.1 Weakness; R26.2 Difficulty in walking, not elsewhere classified; G89.29 Other chronic pain; E86.0 Dehydration; Z86.718 Personal history of other venous thrombosis and embolism; G25.81 Restless legs syndrome; K58.9 Irritable bowel syndrome, unspecified; K21.9 Gastro-esophageal reflux disease without esophagitis; E66.9 Obesity, unspecified; Z85.3 Personal history of malignant neoplasm of breast; Z68.37 Body mass index [BMI] 37.0-37.9, adult
CPT/HCPCS: 00123; 36415; 36416; 51701; 51702; 80048; 80053; 82550; 82962; 85027; 87077; 87637; 93005; 94640; 96365; 96367; 96375; 97163; 99285; 71046; 81003; 81015; 83735; 84439; 84443; 84484; 85025; 85049; 87086; 87186; 93010; 94664; 99223; 99232; 99233; 99239; J0456; J0696; J1815; J1940; J3475; J7613

== ENCOUNTER 2025-01-26 00:39 | Outpatient (CLI) | payer MEDICARE, MEDICAID, SELFPAY ==
--- NOTE | 2025-01-26 13:25 | DI.RAD_ITS ---
Exam(s) XR CHEST 2V PA LATERAL EXAM: XR CHEST 2V PA LATERAL CLINICAL HISTORY: F/U PNEUMONIA. TECHNIQUE: 2D digital imaging was performed. COMPARISON: CR XR CHEST 2V PA LATERAL from 12/30/2024 FINDINGS: 2 views: Heart size upper normal. The mediastinum is not widened. Right lung is clear. Left hemidiaphragm is again noted be elevated. The amount of infiltrate in the left lower lobe has s ignificantly decreased when compared to 12/30/2024. There is some platelike atelectasis now evident in the left lower lobe. No obvious pleural effusion at this time. IMPRESSION: Improvement in the left lower lobe infiltrate and left pleural effusion which are evident on 12/31/19 25.Persistent elevated left hemidiaphragm. The right lung remains clear. DATA REPOSITORY: RADIATION DOSE DELIVERED:
== END 2025-01-26 00:59 ==
LOC: DI 00:39
PROVIDERS: PCP Family Medicine; Visit Provider Nurse Practitioner Family
DX: R91.8 Other nonspecific abnormal finding of lung field (principal)
CPT/HCPCS: 71046

== ENCOUNTER 2025-05-15 14:28 | Outpatient (REF) | payer MEDICARE, MEDICAID, SELFPAY ==
[2025-05-15 14:08] LABS: Abs Immature Grans 0.02 10^3/uL (0.0-0.06); HCT 33.5 % (36.0-46.0); HGB 10.5 g/dL (11.2-15.7); Immature Grans % 0.3 %; MCH 30.9 pg (27.0-33.0); MCHC 31.3 % (32.0-36.0); MCV 99 fL (80-95); MPV 9.2 fL (8.0-11.0); Platelet Count 264 10^3/uL (130-400); RBC 3.40 10^6/uL (3.93-5.22); RDW 12.5 % (11.7-14.6); RDW-SD 45.2 fL; WBC 6.14 10^3/uL (4.4-10.8)
[2025-05-15 14:41] LABS: Anion Gap 6.9 mmol/L (3-11); BUN 35 mg/dL (7-18); CO2 27.1 mmol/L (21.0-32.0); Calcium 8.5 mg/dL (8.5-10.1); Chloride 108 mmol/L (98-107); Estimated GFR 52.08 (mL/min/1.73m2); Glucose 91 mg/dL (74-106); Potassium 4.2 mmol/L (3.5-5.1); Sodium 142 mmol/L (136-145); TSH 2.94 uIU/mL (0.36-3.74); Vitamin D 25 Total 29 ng/mL (30-100)
== END 2025-05-15 14:29 | disposition home or self-care (01) ==
LOC: LBN 14:28
PROVIDERS: PCP Family Medicine; Visit Provider Nurse Practitioner Adult Health
DX: N17.9 Acute kidney failure, unspecified (principal); I10 Essential (primary) hypertension
CPT/HCPCS: 80048; 82306; 84443; 85025

== ENCOUNTER 2025-10-23 12:49 | Outpatient (REF) | payer MEDICARE, MEDICAID, SELFPAY ==
[2025-10-23 13:12] LABS: Abs Immature Grans 0.02 10^3/uL (0.0-0.06); HCT 35.5 % (36.0-46.0); HGB 11.5 g/dL (11.2-15.7); Immature Grans % 0.3 %; MCH 31.9 pg (27.0-33.0); MCHC 32.4 % (32.0-36.0); MCV 98 fL (80-95); MPV 9.4 fL (8.0-11.0); Platelet Count 250 10^3/uL (130-400); RBC 3.61 10^6/uL (3.93-5.22); RDW 13.5 % (11.7-14.6); RDW-SD 48.5 fL; WBC 6.76 10^3/uL (4.4-10.8)
[2025-10-23 13:26] LABS: Anion Gap 6.5 mmol/L (3-11); BUN 34 mg/dL (9-23); CO2 26.5 mmol/L (20.0-31.0); Calcium 8.6 mg/dL (8.3-10.6); Chloride 112 mmol/L (98-107); Glucose 104 mg/dL (74-106); Potassium 4.0 mmol/L (3.5-5.1); Sodium 145 mmol/L (136-145)
[2025-10-23 13:29] LABS: TSH 2.76 uIU/mL (0.55-4.78)
== END 2025-10-23 12:50 | disposition home or self-care (01) ==
LOC: LBN 12:49
PROVIDERS: PCP Family Medicine; Visit Provider Nurse Practitioner Adult Health
DX: E03.9 Hypothyroidism, unspecified (principal); I13.10 Hypertensive heart and chronic kidney disease without heart failure, with stage 1 through stage 4 chronic kidney disease, or unspecified chronic kidney disease
CPT/HCPCS: 80048; 84443; 85025